=== PATIENT | male | born 1950 | race Caucasian/White ===

== ENCOUNTER → 2017-12-18 | Outpatient (CLI) | payer MEDICARE, OTHER ==
[~2017-12-18] MED LIST: KETO10 PO; TERA10CA3 PO; TERA5CAP3 PO; TRAM50TA PO
[2017-12-18 10:42] LABS: AUTOMATED NEUTROPHIL # 4.9 TH/MM3 (1.8-7.7); BASOPHIL % 0.4 % (0.0-2.0); EOSINOPHIL # 0.2 TH/MM3 (0-0.4); EOSINOPHIL % 3.4 % (0.0-4.0); HEMATOCRIT 40.8 % (39.0-51.0); HEMOGLOBIN 13.9 GM/DL (13.0-17.0); LYMPH % 16.9 % (9.0-44.0); LYMPHOCYTE # 1.1 TH/MM3 (1.0-4.8); MEAN CELL VOLUME 94.7 FL (80.0-100.0); MEAN CORPUSCULAR HEMOGLOBIN 32.2 PG (27.0-34.0); MEAN PLATELET VOLUME 9.5 FL (7.0-11.0); MONO % 6.2 % (0.0-8.0); MONOCYTE # 0.4 TH/MM3 (0-0.9); NEUT % 73.1 % (16.0-70.0); PLATELET COUNT 196 TH/MM3 (150-450); RED BLOOD COUNT 4.31 MIL/MM3 (4.50-5.90); RED CELL DISTRIBUTION WIDTH 12.9 % (11.6-17.2); WHITE BLOOD COUNT 6.7 TH/MM3 (4.0-11.0)
[2017-12-18 10:46] LABS: BILIRUBIN, URINE NEG (NEG); BLOOD, URINE NEG (NEG); GLUCOSE,URINE NEG (NEG); KETONE, URINE 10 mg/dL (NEG); MUCUS URINE FEW /lpf (OCC); NITRITE,URINE NEG (NEG); PH, URINE 6.5 (5.0-8.5); URINE COLOR LIGHT-YELLOW (YELLW/STRAW); URINE LEUKOCYTE ESTERASE NEG (NEG)
[2017-12-18 10:47] LABS: INTERNATIONAL NORMALIZED RATIO 1.1 RATIO; PROTHROMBIN TIME - PATIENT 11.6 SEC (9.8-11.6)
[2017-12-18 11:05] LABS: ALBUMIN 4.1 GM/DL (3.4-5.0); AST (GOT) 20 U/L (15-37); BICARBONATE 28.8 MEQ/L (21.0-32.0); BLOOD UREA NITROGEN 4 MG/DL (7-18); CALCIUM 9.1 MG/DL (8.5-10.1); CHLORIDE 104 MEQ/L (98-107); CREATININE 0.76 MG/DL (0.60-1.30); GLOMERULAR FILTRATION RATE 102 ML/MIN (>89); GLUCOSE,FASTING 123 MG/DL (74-99); SODIUM (NA) 140 MEQ/L (136-145)
[2017-12-18 11:08] LABS: ALKALINE PHOSPHATASE 70 U/L (45-117); ALT (GPT) 19 U/L (12-78); TOTAL BILIRUBIN ADULT 0.7 MG/DL (0.2-1.0); TOTAL PROTEIN 7.3 GM/DL (6.4-8.2)
--- NOTE | 2017-12-18 16:33 | EKG ---
Date Performed: 12/18/2017 Time Performed: 10:26:55 PTAGE: 67 years EKG: Sinus rhythm NORMAL ECG NO PREVIOUS TRACING DOCTOR: Coleman Oates Interpretating Date/Time 12/18/2017 16:32:15
== END ==
LOC: CPRE 09:57
PROVIDERS: ATTEND Dentist Oral and Maxillofacial Surgery
DX: Z01.812 Encounter for preprocedural laboratory examination (principal); Z01.810 Encounter for preprocedural cardiovascular examination; C02.1 Malignant neoplasm of border of tongue
CPT/HCPCS: 36415; 80053; 81001; 85025; 85610; 85730; 93005

== ENCOUNTER 2017-12-21 12:35 | Day surgery (SDC) | payer MEDICARE, OTHER ==
--- NOTE | 2017-12-18 08:10 | MH ---
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 The lesion has been present for approximately a year. He is admitted at this time for surgical excision of the right side of his tongue. PAST MEDICAL HISTORY: He has a history of benign prostatic hypertrophy. He has had some episodes of PAT, although his heart rate today is in a normal range. PAST SURGICAL HISTORY: Reveals he has not had surgery in the past. CURRENT MEDICATIONS: 1. Terazosin 10 mg b.i.d. 2. Tramadol 50 mg p.r.n. pain. 3. Tobramycin eyedrops. ALLERGIES: HE IS ALLERGIC TO PENICILLIN. FAMILY HISTORY: His mother and father both at age 85. SOCIAL HISTORY: He lives by himself at home. He smokes 1/2 pack of cigarettes per day. Alcohol, he states he has not drank in the last 5 years and reports he has trouble sleeping, poor eating habits. He is retired. REVIEW OF SYSTEMS: HEAD: He has no history of headaches, dizziness, lightheaded, injury or seizure disorders. EYES: No history of double vision, tearing or blind spots. NOSE: No history of bleeding, obstruction or discharge. MOUTH: Problems as noted above, squamous cell carcinoma of the right side of the tongue approximately 3 x 3 cm. THROAT: Clear. He has no difficulty swallowing, no hoarseness. He has no history of thyroid disease. LYMPH NODES: No local or general glandular enlargement. RESPIRATORY: No history of tuberculosis, shortness of breath, cough, asthma or sleep apnea. He does report he has COPD. CARDIOVASCULAR: No history of hypertension or hypotension, heart murmurs, phlebitis, previous heart surgery, rheumatic fever or chest pain. He does report some shortness of breath on exertion in the last few months. GASTROINTESTINAL: No history of gallbladder disease or peptic ulcer disease. He states that his bowels are irregular due to his diet of eating mostly fruit, juice and mashed potatoes. GENITOURINARY: No history of kidney disease or venereal disease. MUSCULOSKELETAL: No pain, limitation of movement, or muscular weakness. ENDOCRINE: No history of diabetes hormone therapy growth abnormality. HEMATOLOGICAL: No history of anemia or bleeding tendencies. Reports that he did have a transfusion in 1977. NEUROLOGICAL: No sensory or motor disturbances. PHYSICAL EXAMINATION: VITAL SIGNS: Reveals that he has a heart rate of 62 and regular. Blood pressure is 143/74, O2 saturation on room air is 98%. He is 5 feet 10 inches and weighs 170 pounds. HEENT: Head is normocephalic. There are no masses noted. Eyes, EOMs intact. PERRLA. Nose, slight deviation to the left; however, he can breathe well through his nose. Mouth, he has a squamous cell carcinoma on the right mid portion of his tongue, 3 x 3 cm in diameter. NECK: Supple. There is no thyroid enlargement. No difficulty with swallowing. CHEST: Clear to auscultation. HEART: Regular sinus rhythm. He does have a grade 2/6 systolic ejection murmur heard best in the mitral area. EXTREMITIES: Peripheral pulses are full and equal throughout. The murmur is transmitted through to his carotids bilaterally. ABDOMEN: Soft. There are no masses or organomegaly present. Bowel sounds are present. CENTRAL NERVOUS SYSTEM: Cranial nerves 2-12 intact. Deep tendon reflexes are symmetric and physiologic. The patient has been informed of the need for surgical excision of the squamous cell carcinoma. He has been informed of the possibility of having numbness to his tongue and he accepts the treatment plan. ARTHUR Casey/ , 10:08 AM , 10:43 AM
[~2017-12-21 12:35] MED LIST changes: +BALANCED SALT SOLN OPHT IRRIG 15 ML BTL ONE; +CHLORHEXIDINE GLUCONATE 0.12% 15 ML CUP ONE; -KETO10 PO; +LIDOCAINE 1%/EPINEPHrine 1:100,000 SOLN 30 ML VIAL ONE; +LIDOCAINE 2%/EPINEPHrine PF 1:200,000 20ML SDV ONE; -TERA5CAP3 PO
[2017-12-21] MEDS ORDERED: PROPOFOL 200 MG/20 ML AMP IV ONE (12:36)
[2017-12-21] MEDS ORDERED: NEOSTIGMINE 5 MG/5 ML SYRINGE IV PUSH ONE (12:36)
[2017-12-21] MEDS ORDERED: ONDANSETRON HCL 4 MG/2 ML VIAL IV ONE (12:36)
[2017-12-21] MEDS ORDERED: ePHEDrine/NS 25 MG/5 ML SYRINGE IV ONE (12:36)
[2017-12-21] MEDS ORDERED: GLYCOPYRROLATE 1 MG/5 ML SYRINGE IV PUSH ONE (12:36)
[2017-12-21] MEDS ORDERED: DEXAMETHASONE SOD PHOS 4 MG/ML VIAL IV ONE (12:36)
[2017-12-21] MEDS ORDERED: LIDOCAINE HCL 1% PF 5 ML SYRINGE OTHER ONE (12:36)
[2017-12-21] MEDS ORDERED: SUCCINYLCHOLINE CHLORIDE 100 MG/5 ML SYRINGE IV PUSH ONE (12:36)
[2017-12-21] MEDS ORDERED: PHENYLEPH/NS 1000 MCG/10 ML SYR IV ONE (12:36)
[2017-12-21] MEDS ORDERED: ROCURONIUM INJ 50 MG/5 ML SYRINGE IV PUSH ONE (12:36)
[2017-12-21] MEDS ORDERED: LACTATED RINGER'S 1000 ML INJ 1,000 ML IV ONE (12:36)
[2017-12-21] MEDS ORDERED: METOPROLOL TARTRATE 25 MG TAB PO PRN (13:00)
[2017-12-21] MEDS ORDERED: POVIDONE IODINE 5% (ANTISEPSIS KIT) 4 APPLICATIONS EACH NARE PRN (13:00)
[2017-12-21] MEDS ORDERED: CHLORHEXIDINE GLUCONATE 2 % 1 PACK (2 CLOTHS) TOPICAL PRN (13:00)
[2017-12-21] MEDS ORDERED: SODIUM CHLORID 0.9% 500 ML IV PRN (13:00)
[2017-12-21] MEDS ORDERED: LACTATED RINGER'S 1000 ML IV PRN (13:00)
[2017-12-21] MEDS ORDERED: ACETAMINOPHEN 1000 MG/100 ML 100 ML IV ONE (13:46)
[2017-12-21] MEDS ORDERED: OXYMETAZOLINE HCL 0.05% 15 ML NASAL SPRAY ONE (13:56)
[2017-12-21] MEDS ORDERED: CLINDAMYCIN 600 MG/NS 100 ML IV ONE ×2 (14:00)
[2017-12-21] MEDS ORDERED: CLINDAMYCIN 600 MG/NS PREMIX 50 ML IV ONE ×2 (14:00)
[2017-12-21] MEDS ORDERED: MIDAZOLAM HCL 2 MG/2 ML VIAL ONE (16:24)
[2017-12-21] MEDS ORDERED: *morphine SULFATE 4 MG/ML PERIprocedure ONLY ONE (16:26)
[2017-12-21] MEDS ORDERED: *MEPERIDINE 25 MG INJ VIAL PERIprocedural Use ONLY ONE (16:40)
--- NOTE | 2017-12-21 16:47 | MP ---
cc: Marcin Enriquez DDS DATE OF OPERATION: 12/21/2017 DATE OF : 1950 PREOPERATIVE DIAGNOSES: 1. T2 N0 M0 squamous cell carcinoma, right anterior 2/3 of the tongue. 2. Poor dentition. POSTOPERATIVE DIAGNOSES: 1. T2 N0 M0 squamous cell carcinoma, right anterior 2/3 of the tongue. 2. Poor dentition. PROCEDURE PERFORMED: 1. Partial glossectomy of right tongue. 2. Permanent section for frozen sections all came back negative. 3. Extraction of 4 teeth, #16, 18, 30 and 31; those were done by Dr. Álvarez; see dictation for that. FLUIDS: 1000 mL of crystalloids. SPECIMEN: One permanent, four frozen. All frozen came back negative for squamous cell. ESTIMATED BLOOD LOSS: 10 mL. COMPLICATIONS: None. JUSTIFICATION: Mr. Hope is a pleasant 67-year-old man with a continued complaint of a lesion on his right tongue, had been there for almost 7-8 months. He has had a lot of pain with it. Biopsy showed poorly differentiated squamous cell carcinoma. Plan is to go to the OR procedure today on 12/21/2017. PROCEDURE: He presents to the holding area, identified by his name and his chart number, is brought back to OR #7, intubated nasally by Anesthesia, then prepped and draped in sterile fashion. Local anesthesia was given with 2% Xylocaine, 1:100,000 epinephrine, a total of 8 mL in the right tongue. The outline of the lesion was done, was evident clinically as well as a good 8 mm to 1 cm margin, removal of the large portion of the tongue was taken out deep into the muscle. Deep anterior, superior and posterior frozen sections were all sent off undermined. The tongue was irrigated copiously, hemostasis maintained. While waiting for the frozen sections, closure was done with a 3-0 Vicryl in an interlocking horizontal mattress fashion. Dr. Álvarez came in and performed his part of removal of 4 teeth. See his operative report. Pathology called back and all frozen sections were negative for squamous cell. The patient tolerated procedure well. He was extubated and taken to Recovery with vital signs stable. ARTHUR Storey/JUSTO , 04:05 PM , 04:46 PM
[2017-12-21] MEDS ORDERED: *HYDROmorphone PF 0.5 MG/0.5 ML PERIprocedure ONLY ONE ×2 (17:13→17:48)
[2017-12-21] MEDS ORDERED: DO NOT ADM ANY ANTICOAGULANT DRUGS PRN (17:15)
[2017-12-21] MEDS: DEXT 5%-NACL 0.45% 1000 ML INJ 1,000 ML IV SCH (17:15)
[2017-12-21] MEDS ORDERED: *ENALAPRILAT 1.25 MG/ML VIAL PERIprocedural Use ONLY ONE (17:46)
[2017-12-21] MEDS: MORPHINE SULFATE 4 MG/ML INJ IV PRN ×2 (20:19→23:34)
[2017-12-21 21:20] VITALS: BP 110/62; PULSE 75; RESP 16; TEMP 97.9; O2SAT 94
[2017-12-21] MEDS: CLINDAMYCIN 300 MG/NS PREMIX 50 ML IV SCH (23:51)
[2017-12-22] VITALS: BP 99/63; PULSE 66; RESP 17; TEMP 98; O2SAT 97
[2017-12-22] MEDS: MORPHINE SULFATE 4 MG/ML INJ IV PRN ×3 (02:41→09:07)
[2017-12-22] MEDS: DEXT 5%-NACL 0.45% 1000 ML INJ 1,000 ML IV SCH (02:42)
[2017-12-22 04:00] VITALS: BP 99/65; PULSE 69; RESP 16; TEMP 98.1; O2SAT 98
[2017-12-22] MEDS: CLINDAMYCIN 300 MG/NS PREMIX 50 ML IV SCH (05:53)
[2017-12-22 08:00] VITALS: BP_SYST 110; BP_SYST 165; BP_DIAS 62; BP_DIAS 95; PULSE 59; PULSE 60; RESP 17; TEMP 97.5; TEMP 97.6; O2SAT 95
--- NOTE | 2017-12-22 10:54 | MP ---
cc: Ritchie Álvarez DDS DATE OF OPERATION: 12/21/2017 SURGEON: Ritchie Álvarez DDS PREOPERATIVE DIAGNOSIS: Poorly differentiated squamous cell carcinoma of the right tongue. PROCEDURE PERFORMED: 1. Excision of squamous cell carcinoma of the right tongue. This portion of the surgery will be dictated by Dr. Enriquez. 2. Removal of teeth #16, 18, 31 32, in preparation for definitive radiation therapy for his squamous cell carcinoma and to prevent osteoradionecrosis, performed by Dr. Álvarez. OPERATIVE PROCEDURE: After the tongue surgery was completed, attention was directed to the area of #31 and 32. A full thickness mucoperiosteal incision was made around #31 and 32. The flap was reflected. Bone around the teeth removed with the use of a rotary drill. The teeth were then elevated and removed with a forceps. The incision line was closed with interrupted 4-0 plain gut sutures. Attention was directed to the area of #18. A full thickness mucoperiosteal incision was made around #18. The flap was reflected. Bone around the tooth was removed and it was removed with forceps. The incision line was closed with interrupted 4-0 plain gut sutures. Attention was directed to the area of #16. The tooth was elevated and then removed with forceps. Once this was completed, the throat pack was removed and the patient was taken to recovery in good condition. ARTHUR Casey/JUSTO , 10:31 AM , 10:52 AM
[2017-12-22 12:00] VITALS: BP 133/64; PULSE 89; RESP 18; TEMP 98; O2SAT 96
[2017-12-22] MEDS: oxyCODONE/ACETAMINOPHEN 7.5 MG/325 MG TAB PO PRN ×2 (12:16→15:47)
[2017-12-22 16:00] VITALS: BP 126/66; PULSE 57; RESP 18; TEMP 97.8; O2SAT 96
[2017-12-23] MEDS ORDERED: PNEUMOCOCCAL POLYVALENT INJ 25 MCG/0.5 ML SYR IM ONE (10:00)
== END 2017-12-22 18:32 | disposition home or self-care (01) ==
LOC: HSDC 12:35 → N04A 18:42 → HSDC 12-22 18:32
PROVIDERS: ATTEND Dentist Oral and Maxillofacial Surgery
DX: C02.3 Malignant neoplasm of anterior two-thirds of tongue, part unspecified (principal); K00.7 Teething syndrome; N40.0 Benign prostatic hyperplasia without lower urinary tract symptoms; I47.1 Supraventricular tachycardia; F17.210 Nicotine dependence, cigarettes, uncomplicated; Z88.0 Allergy status to penicillin
CPT/HCPCS: 00170; 41120; 41899; 88305; 88309; 88331; J0131; J1170; J2175; J2250; J2270; J3010; J7120; J0330; J1100; J2370; J2405; J2710

== ENCOUNTER 2018-02-08 11:16 | Inpatient (IN) | payer MEDICARE, OTHER ==
[~2018-02-08] VITALS: Ht 177.8 cm; Wt 76.5 kg
[~2018-02-08 11:16] MED LIST changes: -BALANCED SALT SOLN OPHT IRRIG 15 ML BTL ONE; -CHLORHEXIDINE GLUCONATE 0.12% 15 ML CUP ONE; -LIDOCAINE 1%/EPINEPHrine 1:100,000 SOLN 30 ML VIAL ONE; -LIDOCAINE 2%/EPINEPHrine PF 1:200,000 20ML SDV ONE
[2018-02-08] MEDS ORDERED: IOHEXOL 350 MG/ML 10 ML VIAL (for RAD DIAG) IVCONTRAST ONE (11:17)
[2018-02-08 11:20] VITALS: BP 138/93; PULSE 137; RESP 18; TEMP 99.6; O2SAT 98
[2018-02-08 11:38] VITALS: BP 158/77; PULSE 125; RESP 20; O2SAT 98
[2018-02-08] MEDS ORDERED: SODIUM CHLOR 0.9% 1000 ML INJ 1,000 ML IV ONE (11:45)
[2018-02-08] MEDS ORDERED: ASPIRIN 325 MG TAB PO ONE (11:45)
[2018-02-08] MEDS ORDERED: METOCLOPRAMIDE HCL 10 MG/2 ML VIAL IV PUSH ONE (11:45)
[2018-02-08] MEDS ORDERED: MORPHINE SULFATE 4 MG/ML INJ IV PUSH ONE ×2 (11:45→14:00)
--- NOTE | 2018-02-08 11:51 | PD ---
HPI Chief Complaint: Cardiac Complaint Time Seen by Provider: 11:25 Travel History International Travel<30 days: No Contact w/Intl Traveler<30days: No Traveled to known affect area: No History of Present Illness HPI 67-year-old male that presents to the ED for evaluation of possible syncope and arrhythmia. Apparently patient was on his bathroom when she had a possible syncopal episode where he felt palpitations as well as shortness of breath. He had some discomfort in his chest like a pressure. Per patient he has had the symptoms before and per patient has had tachycardia in the past but he is not really able to tell me what he has been diagnosed with. He denies any history of heart disease. Per patient he does have a significant history of chronic arthritis for which she takes tramadol as well as colon cancer for which she is currently in the process of being treated by the [facility] as well as Dr. Madison for radiology oncology. Patient has not had any chemoradiation as of yet. Per patient she is been dealing with a lot of pain secondary to the cancer and his tramadol seems to not be working for him. Per patient has been noting for the past week he has been having episodes where he feels like his in a pass out and he does not believe is just because he is standing. Per patient he will be standing and walking for some time and then he will have some chest pressure on his chest and feel like his in a pass out. He never has done so however. He denies taking more of his tramadol than prescribed. He denies any pain at this time. He does state that he feels somewhat depressed and suicidal because of his situation and his current pain. Per patient when he has his pain is more like a pressure on his chest. He denies taking blood thinners. He denies any history of ACS. Allergy to penicillin. He states that he does have 7 out of 10 pain on his right side of his mouth. PFSH Past Medical History Arthritis: Yes (RIGHT KNEE) Anxiety: Yes (patient states "naturally so" ) Depression: Yes Heart Rhythm Problems: Yes (P.A.T.) Cancer: Yes (tongue cancer) Diabetes: No Diminished Hearing: No (RINGING IN EARS AT TIMES) Endocrine: No Genitourinary: Yes (ENLARGED PROSTATE) Kidney Stones: Yes (PASSED A KIDNEY STONE YESTERDAY) Medical other: Yes (Thrush on tongue) Musculoskeletal: Yes (arthritis) Psychiatric: Yes Immunizations Current: Yes Tetanus Vaccination: > 5 Years Influenza Vaccination: Yes Past Surgical History Abdominal Surgery: No AICD: No Body Medical Devices: right leg pin Cardiac Surgery: No Ear Surgery: No Endocrine Surgery: No Eye Surgery: No Genitourinary Surgery: No Gynecologic Surgery: No Joint Replacement: No Oral Surgery: Yes (Teeth extracted) Thoracic Surgery: No Other Surgery: Yes (TONGUE SURGERY) Social History Alcohol Use: Yes (1/2 PPD) Tobacco Use: Yes Substance Use: No Allergies-Medications (Allergen,Severity, Reaction): Coded Allergies: penicillin G (Verified Allergy, Unknown, 02/08/18) Reported Meds & Prescriptions Reported Meds & Active Scripts Active Reported Terazosin (Terazosin HCl) 10 Mg Cap 10 Mg PO BID Tramadol (Tramadol HCl) 50 Mg Tab 50 Mg PO Q6H PRN Review of Systems Except as stated in HPI: all other systems reviewed are Neg Physical Exam Narrative GENERAL: SKIN: Warm and dry. HEAD: Atraumatic. Normocephalic. EYES: Pupils equal and round. No scleral icterus. No injection or drainage. ENT: No nasal bleeding or discharge. Mucous membranes pink and moist. Tongue is midline. No blood deviation. She does have some deformities and what appears to be inflammation and likely cancer changes to his mouth especially on the right side compared to the left. NECK: Trachea midline. No JVD. CARDIOVASCULAR: Regular tachycardic rate and rhythm. No murmurs, S3, S4. RESPIRATORY: No accessory muscle use. Clear to auscultation. Breath sounds equal bilaterally. GASTROINTESTINAL: Abdomen soft, non-tender, nondistended. Hepatic and splenic margins not palpable. MUSCULOSKELETAL: Extremities without clubbing, cyanosis, or edema. No obvious deformities. Full range of motion of the upper and lower extremities bilaterally. 2+ pulses bilaterally. NEUROLOGICAL: Awake and alert. No obvious cranial nerve deficits. Motor grossly within normal limits. Five out of 5 muscle strength in the arms and legs. Normal speech. PSYCHIATRIC: Appropriate mood and affect; insight and judgment normal. Data Data Last Documented VS Vital Signs Date Time Temp Pulse Resp B/P (MAP) Pulse Ox O2 Delivery O2 Flow Rate FiO2 02/08/18 13:22 78 18 141/60 (87) 100 Room Air 02/08/18 11:20 99.6 Orders Orders Electrocardiogram (02/08/18 11:26) Complete Blood Count With Diff (02/08/18 11:26) Comprehensive Metabolic Panel (02/08/18 11:26) Ckmb (Isoenzyme) Profile (02/08/18 11:26) Troponin I (02/08/18 11:26) Prothrombin Time / Inr (Pt) (02/08/18 11:26) Act Partial Throm Time (Ptt) (02/08/18 11:26) Magnesium (Mg) (02/08/18 11:26) Thyroid Stimulating Hormone (02/08/18 11:26) Chest, Single Ap (02/08/18 11:26) Ct Brain W/O Iv Contrast(Rout) (02/08/18 11:26) Iv Access Insert/Monitor (02/08/18 11:26) Ecg Monitoring (02/08/18 11:26) Oximetry (02/08/18 11:26) D-Dimer (02/08/18 11:41) Aspirin (Aspirin) (02/08/18 11:45) Morphine Inj (Morphine Inj) (02/08/18 11:45) Metoclopramide Inj (Reglan Inj) (02/08/18 11:45) Sodium Chlor 0.9% 1000 Ml Inj (Ns 1000 M (02/08/18 11:45) CKMB (02/08/18 11:30) CKMB% (02/08/18 11:30) Ct Pulmonary Angiogram (02/08/18 ) Morphine Inj (Morphine Inj) (02/08/18 14:00) Iohexol 350 Inj (Omnipaque 350 Inj) (02/08/18 11:17) Admit Order (Ed Use Only) (02/08/18 15:46) Labs Laboratory Tests Test 02/08/18 11:30 White Blood Count 8.0 TH/MM3 Red Blood Count 4.41 MIL/MM3 Hemoglobin 13.9 GM/DL Hematocrit 41.8 % Mean Corpuscular Volume 94.9 FL Mean Corpuscular Hemoglobin 31.5 PG Mean Corpuscular Hemoglobin Concent 33.2 % Red Cell Distribution Width 13.7 % Platelet Count 192 TH/MM3 Mean Platelet Volume 10.5 FL Neutrophils (%) (Auto) 75.2 % Lymphocytes (%) (Auto) 14.9 % Monocytes (%) (Auto) 7.2 % Eosinophils (%) (Auto) 1.9 % Basophils (%) (Auto) 0.8 % Neutrophils # (Auto) 6.0 TH/MM3 Lymphocytes # (Auto) 1.2 TH/MM3 Monocytes # (Auto) 0.6 TH/MM3 Eosinophils # (Auto) 0.2 TH/MM3 Basophils # (Auto) 0.1 TH/MM3 CBC Comment DIFF FINAL Differential Comment Prothrombin Time 11.4 SEC Prothromb Time International Ratio 1.1 RATIO Activated Partial Thromboplast Time 25.2 SEC D-Dimer Quantitative (PE/DVT) 0.74 MG/L FEU Blood Urea Nitrogen 6 MG/DL Creatinine 0.82 MG/DL Random Glucose 98 MG/DL Total Protein 7.7 GM/DL Albumin 4.1 GM/DL Calcium Level 9.0 MG/DL Magnesium Level 1.9 MG/DL Alkaline Phosphatase 77 U/L Aspartate Amino Transf (AST/SGOT) 22 U/L Alanine Aminotransferase (ALT/SGPT) 15 U/L Total Bilirubin 0.5 MG/DL Sodium Level 142 MEQ/L Potassium Level 4.2 MEQ/L Chloride Level 107 MEQ/L Carbon Dioxide Level 26.2 MEQ/L Anion Gap 9 MEQ/L Estimat Glomerular Filtration Rate 93 ML/MIN Total Creatine Kinase 166 U/L Creatine Kinase MB 2.0 NG/ML Troponin I LESS THAN 0.02 NG/ML Thyroid Stimulating Hormone 3rd Gen 0.833 uIU/ML MDM Medical Decision Making Medical Screen Exam Complete: Yes Emergency Medical Condition: Yes Medical Record Reviewed: Yes Interpretation(s) CBC & BMP Diagram 02/08/18 11:30 Total Protein 7.7, Albumin 4.1, Calcium Level 9.0, Magnesium Level 1.9, Alkaline Phosphatase 77, Aspartate Amino Transf (AST/SGOT) 22, Alanine Aminotransferase (ALT/SGPT) 15, Total Bilirubin 0.[address] 02/08/18 1126 Signed Impressions: CONCLUSION: 1. Negative noncontrast head CT. Chest X-Ray 02/08/18 112 Signed Impressions: CONCLUSION: No acute cardiopulmonary process. CT Angiography 02/08/18 0000 Signed Impressions: CONCLUSION: 1. No pulmonary embolus identified. 2. 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 3. Mild COPD changes in the pulmonary parenchyma d-dimmer positive troponin and CKMB negative Differential Diagnosis Acute on chronic pain versus cancer pain versus dehydration versus PE versus syncope versus ACS versus N STEMI Narrative Course 67-year-old male the presents to the ED for evaluation of possible syncope and tachycardia as well as cancer pain. Patient was properly examined and was found to have signs and symptoms of unclear etiology. Patient was evaluated by ambulance and was found to be tachycardic but no sign of A. fib and he was not given any Cardizem. Per my examination she has been as high as 128. His been complaining of some pain on his mild from the cancer. He also seems to not be eating or drinking as much because of the discomfort. He also has been complaining of some chest pressure and presyncope-like symptoms. This time I recommend labs and imaging. Patient was given IV pain medications and antiemetics. Patient was given fluids as well. Aspirin was given to cover for ACS. Labs and imaging showed positive d-dimer. CTA was ordered. CTA did not show any sign of PE but did show what appears to be severe stenosis of the left subclavian artery. This time her condition is admission for further evaluation of the syncopal episodes. Could be related to the stenosis versus pain from the tongue versus arrhytmia. My attending Dr manning evaluated the patient and agrees with admission. Case discussed with ALEXANDER LEONG for Dr Tyson who agrees with admission. Diagnosis Primary Impression: Syncope, near Additional Impressions: Subclavian artery stenosis, left Arrhythmia Qualified Codes: I49.9 - Cardiac arrhythmia, unspecified Tongue cancer Admitting Information Admitting Physician Requests: Kuldip Qiu Feb 08, 2018 11:51
--- NOTE | 2018-02-08 11:57 | RADRPT ---
EXAM DATE: 02/08/2018 11:48 AM EDT AGE/SEX: 67 years / Male INDICATIONS: Syncope CLINICAL DATA: This is the patient's initial encounter. Patient reports that signs and symptoms have been present for 1 day and indicates a pain score of 0/10. MEDICAL/SURGICAL HISTORY: None. None. COMPARISON: No prior exams available for comparison. FINDINGS: A single AP view of the chest demonstrates the lungs to be symmetrically aerated without evidence of mass, infiltrate or effusion. The cardiomediastinal contours are unremarkable. Osseous structures a re intact. CONCLUSION: No acute cardiopulmonary process. Electronically signed by: Ritchie Angel MD 02/08/2018 11:56 AM EDT
[2018-02-08 12:16] LABS: BASOPHIL # 0.1 TH/MM3 (0-0.2); BASOPHIL % 0.8 % (0.0-2.0); EOSINOPHIL # 0.2 TH/MM3 (0-0.4); EOSINOPHIL % 1.9 % (0.0-4.0); HEMATOCRIT 41.8 % (39.0-51.0); HEMOGLOBIN 13.9 GM/DL (13.0-17.0); LYMPH % 14.9 % (9.0-44.0); LYMPHOCYTE # 1.2 TH/MM3 (1.0-4.8); MEAN CELL VOLUME 94.9 FL (80.0-100.0); MEAN CORPUSCULAR HEMOGLOBIN 31.5 PG (27.0-34.0); MEAN CORPUSCULAR HGB CONC 33.2 % (32.0-36.0); MEAN PLATELET VOLUME 10.5 FL (7.0-11.0); MONO % 7.2 % (0.0-8.0); MONOCYTE # 0.6 TH/MM3 (0-0.9); NEUT % 75.2 % (16.0-70.0); PLATELET COUNT 192 TH/MM3 (150-450); RED BLOOD COUNT 4.41 MIL/MM3 (4.50-5.90); RED CELL DISTRIBUTION WIDTH 13.7 % (11.6-17.2)
[2018-02-08 12:28] LABS: INTERNATIONAL NORMALIZED RATIO 1.1 RATIO; PROTHROMBIN TIME - PATIENT 11.4 SEC (9.8-11.6)
[2018-02-08 12:49] LABS: ALBUMIN 4.1 GM/DL (3.4-5.0); ALKALINE PHOSPHATASE 77 U/L (45-117); ALT (GPT) 15 U/L (12-78); AST (GOT) 22 U/L (15-37); BICARBONATE 26.2 MEQ/L (21.0-32.0); BLOOD UREA NITROGEN 6 MG/DL (7-18); CHLORIDE 107 MEQ/L (98-107); CREATININE 0.82 MG/DL (0.60-1.30); GLOMERULAR FILTRATION RATE 93 ML/MIN (>89); GLUCOSE,RANDOM 98 MG/DL (74-106); MAGNESIUM 1.9 MG/DL (1.5-2.5); SODIUM (NA) 142 MEQ/L (136-145); TOTAL BILIRUBIN ADULT 0.5 MG/DL (0.2-1.0); TOTAL PROTEIN 7.7 GM/DL (6.4-8.2); TROPONIN I LESS THAN 0.02 NG/ML (0.02-0.05)
--- NOTE | 2018-02-08 12:49 | RADRPT ---
EXAM DATE: 02/08/2018 12:42 PM EDT AGE/SEX: 67 years / Male INDICATIONS: Syncope CLINICAL DATA: This is the patient's initial encounter. Patient reports that signs and symptoms have been present for 1 day and indicates a pain score of 5/10. MEDICAL/SURGICAL HISTORY: Carcinoma, tongue. tachycardia and heart palipitations . RADIATION DOSE: 36.04 CTDI (mGy) COMPARISON: No prior exams available for comparison. TECHNIQUE: CT of the head without contrast. Using automated exposure control and adjustment of the mA and/or kV according to patient size, radiation dose was kept as low as reasonably achievable to ob tain optimal diagnostic quality images. DICOM format image data is available electronically for revi ew and comparison. FINDINGS: Cerebrum: The ventricles are normal for age. No evidence of midline shift, mass lesion, hemorrhage or acute infarction. No extraaxial fluid collections are seen. Posterior Fossa: The cerebellum and brainstem are intact. The 4th ventricle is midline. The cerebe llopontine angle is unremarkable. Extracranial: The visualized portion of the orbits is intact. Skull: The calvaria is intact. No evidence of skull fracture. CONCLUSION: 1. Negative noncontrast head CT. Electronically signed by: Mitchell Craig MD 02/08/2018 12:48 PM EDT
--- NOTE | 2018-02-08 13:08 | PD ---
Physical Exam Date Seen by Provider: Feb 08, 2018 Narrative This patient presents to us via [facility] for palpitations. He has a new diagnosis of tongue cancer. He is having difficulty with eating and drinking. He is also reporting significant pain associated with the cancer. The monitor shows a sinus tachycardia. Data Data Last Documented VS Vital Signs Date Time Temp Pulse Resp B/P (MAP) Pulse Ox O2 Delivery O2 Flow Rate FiO2 02/08/18 11:38 125 20 158/77 (104) 98 Room Air 02/08/18 11:20 99.6 Orders Orders Electrocardiogram (02/08/18 11:26) Complete Blood Count With Diff (02/08/18 11:26) Comprehensive Metabolic Panel (02/08/18 11:) Ckmb (Isoenzyme) Profile (02/08/18:) Troponin I (02/08/18:) Prothrombin Time / Inr (Pt) (02/08/18 11:) Act Partial Throm Time (Ptt) (02/08/18 11:) Magnesium (Mg) (02/08/18 11:26) Thyroid Stimulating Hormone (02/08/18 11:26) Chest, Single Ap (02/08/18 11:26) Ct Brain W/O Iv Contrast(Rout) (02/08/18 11:26) Iv Access Insert/Monitor (02/08/18 11:26) Ecg Monitoring (02/08/18 11:26) Oximetry (02/08/18 11:26) D-Dimer (02/08/18 11:41) Aspirin (Aspirin) (02/08/18 11:45) Morphine Inj (Morphine Inj) (02/08/18 11:45) Metoclopramide Inj (Reglan Inj) (02/08/18 11:45) Sodium Chlor 0.9% 1000 Ml Inj (Ns 1000 M (02/08/18 11:45) CKMB (02/08/18 11:30) CKMB% (02/08/18 11:30) Ct Pulmonary Angiogram (02/08/18 ) Labs Laboratory Tests Test 02/08/18 11:30 White Blood Count 8.0 TH/MM3 Red Blood Count 4.41 MIL/MM3 Hemoglobin 13.9 GM/DL Hematocrit 41.8 % Mean Corpuscular Volume 94.9 FL Mean Corpuscular Hemoglobin 31.5 PG Mean Corpuscular Hemoglobin Concent 33.2 % Red Cell Distribution Width 13.7 % Platelet Count 192 TH/MM3 Mean Platelet Volume 10.5 FL Neutrophils (%) (Auto) 75.2 % Lymphocytes (%) (Auto) 14.9 % Monocytes (%) (Auto) 7.2 % Eosinophils (%) (Auto) 1.9 % Basophils (%) (Auto) 0.8 % Neutrophils # (Auto) 6.0 TH/MM3 Lymphocytes # (Auto) 1.2 TH/MM3 Monocytes # (Auto) 0.6 TH/MM3 Eosinophils # (Auto) 0.2 TH/MM3 Basophils # (Auto) 0.1 TH/MM3 CBC Comment DIFF FINAL Differential Comment Prothrombin Time 11.4 SEC Prothromb Time International Ratio 1.1 RATIO Activated Partial Thromboplast Time 25.2 SEC D-Dimer Quantitative (PE/DVT) 0.74 MG/L FEU Blood Urea Nitrogen 6 MG/DL Creatinine 0.82 MG/DL Random Glucose 98 MG/DL Total Protein 7.7 GM/DL Albumin 4.1 GM/DL Calcium Level 9.0 MG/DL Magnesium Level 1.9 MG/DL Alkaline Phosphatase 77 U/L Aspartate Amino Transf (AST/SGOT) 22 U/L Alanine Aminotransferase (ALT/SGPT) 15 U/L Total Bilirubin 0.5 MG/DL Sodium Level 142 MEQ/L Potassium Level 4.2 MEQ/L Chloride Level 107 MEQ/L Carbon Dioxide Level 26.2 MEQ/L Anion Gap 9 MEQ/L Estimat Glomerular Filtration Rate 93 ML/MIN Total Creatine Kinase 166 U/L Creatine Kinase MB 2.0 NG/ML Troponin I LESS THAN 0.02 NG/ML Thyroid Stimulating Hormone 3rd Gen 0.833 uIU/ML MDM Supervised Visit with TONI: Yes Narrative Course I, Dr. Arnold, have reviewed the advance practice practitioner's documentation and am in agreement, met with the patient face to face, made the diagnosis, and the medical decision making was done by me. *My assessment and Findings: Patient is awake and alert. He becomes tearful during the interview. He has a sinus tachycardia at about 110. See Jennifer Solomon note for a more detailed H&P, final diagnosis and disposition Kristina Arnold MD Feb 08, 2018 13:08
[2018-02-08 13:22] VITALS: BP 141/60; PULSE 78; RESP 18; O2SAT 100
--- NOTE | 2018-02-08 15:10 | RADRPT ---
EXAM DATE: 02/08/2018 2:49 PM EDT AGE/SEX: 67 years / Male INDICATIONS: CHEST PRESSURE,SHORTNESS OF BREATH,SYBCOPE CLINICAL DATA: This is the patient's initial encounter. Patient reports that signs and symptoms have been present for 1 day and indicates a pain score of 1/10. MEDICAL/SURGICAL HISTORY: Carcinoma, oral cavity. IRREGULAR HEART BEAT None. RADIATION DOSE: 13.24 CTDI (mGy) COMPARISON: No prior exams available for comparison. TECHNIQUE: Volumetric scanning was performed using a multi-row detector CT scanner during bolus infu jamey of 74 ml Omnipaque 350 (iohexol) nonionic water-soluble contrast as a single exam dose. The hannah a was post processed with a variety of visualization algorithms including full volume maximum intensi ty projection and sliding thin slab reformation. Using automated exposure control and adjustment of the mA and/or kV according to patient size, radiation dose was kept as low as reasonably achievable t o obtain optimal diagnostic quality images. DICOM format image data is available electronically for review and comparison. FINDINGS: The examination is of excellent diagnostic quality. No pulmonary embolus is identified. The heart is normal in size. There is no hilar or mediastinal adenopathy. The exam does demonstrate m ild calcification of the aortic annulus. There is no pericardial effusion. There is partial visualization of the origin of the left subclavian. The exam would suggest a high-gr ryan stenosis at the origin of the left subclavian artery. Imaging through the pulmonary parenchyma demonstrates the lungs to be clear. There are mild COPD burgess ges. No suspicious mass lesions are seen. No pleural effusion is identified. The limited portions of upper abdomen visualized are unremarkable. The visualized bony structures are grossly intact. CONCLUSION: 1. No pulmonary embolus identified. 2. 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 3. Mild COPD changes in the pulmonary parenchyma Electronically signed by: Zack Lofton MD 02/08/2018 3:08 PM EDT
[2018-02-08] MEDS ORDERED: ONDANSETRON ODT 4 MG TAB PO PRN (16:00)
[2018-02-08] MEDS ORDERED: BISACODYL 10 MG SUPP RECTAL PRN (16:00)
[2018-02-08] MEDS ORDERED: NALOXONE HCL 0.4 MG/ML AMP IV PUSH PRN (16:00)
[2018-02-08] MEDS ORDERED: LACTULOSE SYRUP 20 GM/30 ML CUP PO PRN (16:00)
[2018-02-08] MEDS ORDERED: ZOLPIDEM TARTRATE 5 MG TAB PO PRN (16:00)
[2018-02-08] MEDS ORDERED: ACETAMINOPHEN 325 MG TAB PO PRN (16:00)
[2018-02-08] MEDS ORDERED: MAGNESIUM HYDROXIDE SUSP 30 ML CUP PO PRN (16:00)
[2018-02-08] MEDS ORDERED: SODIUM CHLORIDE 0.9% FLUSH 10 ML FLUSH IV FLUSH PRN (16:00)
[2018-02-08] MEDS ORDERED: SENNOSIDES 8.6 MG TAB PO PRN (16:00)
[2018-02-08] MEDS ORDERED: traMADol HCL 50 MG TAB PO PRN (16:00)
[2018-02-08 16:45] VITALS: BP 168/77; PULSE 75; RESP 18; O2SAT 99
[2018-02-08] MEDS: ACETAMINOPHEN/HYDROcodone 325 MG/5 MG TAB PO PRN ×2 (17:01→21:10)
[2018-02-08] MEDS: SODIUM CHLOR 0.9% 1000 ML INJ 1,000 ML IV SCH ×2 (17:10→21:28)
[2018-02-08] MEDS: ENOXAPARIN SODIUM 40 MG/0.4 ML SYRINGE SQ SCH (17:10)
--- NOTE | 2018-02-08 19:29 | MB ---
cc: Jose Menendez MD DATE: 02/08/2018 HISTORY OF PRESENT ILLNESS: Mr. Hope is a very pleasant 67-year-old white male with a history of tongue cancer, who was brought to the emergency room after an episode of presyncope. He went to the bathroom after he was walking on the beach earlier today. He felt palpitations, which felt like initiation of his usual PAT. He got dizzy and lowered himself to the floor and subsequently called for help. He does not think he lost consciousness. He complains of a severe headache on the right side of the head and also pain in his mouth when he had his teeth pulled. He denies any chest discomfort or shortness of breath. He has no peripheral edema. He is trying to quit smoking. PAST MEDICAL HISTORY: Positive for tongue cancer. He is treated at [place] and also by Dr. Madison. History of supraventricular tachycardia, depression, anxiety, right knee arthritis, BPH, nephrolithiasis. Otherwise, there is no other previous cardiac history. PAST SURGICAL HISTORY: History of tongue surgery, teeth extraction, right leg surgery. MEDICATIONS: Include tramadol, terazosin. ALLERGIES: ALLERGIC TO PENICILLIN. SOCIAL HISTORY: The patient smoked a half pack a day. He does not drink alcohol. FAMILY HISTORY: Negative for heart disease. REVIEW OF SYSTEMS: Otherwise negative. PHYSICAL EXAMINATION: VITAL SIGNS: Blood pressure 160/77, pulse 75 and regular. HEENT: Negative, 2+ upstrokes, no bruits. LUNGS: Clear. HEART: Regular, with no murmur or gallop. ABDOMEN: Soft, no bruits. BREASTS: Without edema. Good distal pulses. NEUROLOGIC: Grossly nonfocal. There is some mild speech impediment secondary to oral pain and tongue surgery. ECHOCARDIOGRAM: Was reviewed and showed sinus tachycardia, no acute changes. LABORATORY DATA: Hemoglobin 13.9, potassium 4.2, creatinine 0.8. CK 156, troponin less than 0.02. TSH 0.8. DIAGNOSES: 1. Near syncope. 2. Tongue cancer, status post surgery and radiation. 3. Headache. 4. Left subclavian artery stenosis. 5. History of paroxysmal supraventricular tachycardia. 6. Smoking. PLAN: Mr. Hope will be monitored on telemetry. He has history of paroxysmal supraventricular tachycardia, but is not on any antiarrhythmic therapy at this time. His tachycardia is rather infrequent and recent episodes have been quite brief. We will obtain echocardiogram to evaluate his left ventricle function. He will need evaluation for his headache. His CT angiography showed no evidence of pulmonary embolism. It showed the evidence of high-grade stenosis of the origin of the left subclavian artery. I recommend aggressive modification of his cardiac risk factors including smoking cessation. I will follow him for cardiology during his hospitalization. MD BHARGAVI Ruano/CM , 06:31 PM , 07:27 PM SORAIDA
[2018-02-08 20:00] VITALS: BP 145/67; PULSE 62; RESP 20; TEMP 97.3; O2SAT 98
[2018-02-08] MEDS: TERAZOSIN HCL 5 MG CAP PO SCH (21:10)
[2018-02-08] MEDS: DOCUSATE SODIUM 50 MG/SENNA 8.6 MG TAB PO SCH (21:10)
[2018-02-08] MEDS: SODIUM CHLORIDE 0.9% FLUSH 10 ML FLUSH IV FLUSH SCH (21:11)
[2018-02-08 22:00] VITALS: PULSE 59
[2018-02-09] VITALS (9 sets, daily range): BP systolic 134–176; BP diastolic 67–81; PULSE 47–90; RESP 16–20; TEMP 97.2–98.3; O2SAT 95–98
[2018-02-09] MEDS: ACETAMINOPHEN/HYDROcodone 325 MG/5 MG TAB PO PRN ×6 (01:11→20:40)
[2018-02-09 07:55] LABS: AUTOMATED NEUTROPHIL # 3.2 TH/MM3 (1.8-7.7); BASOPHIL % 0.6 % (0.0-2.0); EOSINOPHIL # 0.3 TH/MM3 (0-0.4); HEMATOCRIT 34.9 % (39.0-51.0); HEMOGLOBIN 11.6 GM/DL (13.0-17.0); LYMPH % 22.2 % (9.0-44.0); LYMPHOCYTE # 1.1 TH/MM3 (1.0-4.8); MEAN CELL VOLUME 95.5 FL (80.0-100.0); MEAN CORPUSCULAR HEMOGLOBIN 31.8 PG (27.0-34.0); MEAN CORPUSCULAR HGB CONC 33.3 % (32.0-36.0); MEAN PLATELET VOLUME 10.3 FL (7.0-11.0); MONO % 7.1 % (0.0-8.0); MONOCYTE # 0.4 TH/MM3 (0-0.9); NEUT % 64.1 % (16.0-70.0); PLATELET COUNT 141 TH/MM3 (150-450); RED BLOOD COUNT 3.65 MIL/MM3 (4.50-5.90); RED CELL DISTRIBUTION WIDTH 13.8 % (11.6-17.2); WHITE BLOOD COUNT 5.1 TH/MM3 (4.0-11.0)
[2018-02-09 08:31] LABS: ALBUMIN 3.1 GM/DL (3.4-5.0); ALKALINE PHOSPHATASE 63 U/L (45-117); ALT (GPT) 14 U/L (12-78); AST (GOT) 14 U/L (15-37); BICARBONATE 24.9 MEQ/L (21.0-32.0); BLOOD UREA NITROGEN 4 MG/DL (7-18); CALCIUM 8.1 MG/DL (8.5-10.1); CHLORIDE 110 MEQ/L (98-107); CREATININE 0.67 MG/DL (0.60-1.30); GLOMERULAR FILTRATION RATE 118 ML/MIN (>89); GLUCOSE,RANDOM 86 MG/DL (74-106); SODIUM (NA) 143 MEQ/L (136-145); TOTAL BILIRUBIN ADULT 0.6 MG/DL (0.2-1.0); TOTAL PROTEIN 5.9 GM/DL (6.4-8.2)
[2018-02-09] MEDS: DOCUSATE SODIUM 50 MG/SENNA 8.6 MG TAB PO SCH ×2 (09:00→20:42)
[2018-02-09] MEDS: SODIUM CHLORIDE 0.9% FLUSH 10 ML FLUSH IV FLUSH SCH ×2 (09:00→20:41)
[2018-02-09] MEDS: TERAZOSIN HCL 5 MG CAP PO SCH ×2 (09:00→14:03)
--- NOTE | 2018-02-09 09:13 | EKG ---
Date Performed: 02/08/2018 Time Performed: 21:49:47 PTAGE: 67 years EKG: SINUS BRADYCARDIA BORDERLINE ECG Since the PREVIOUS TRACING , no significant change noted PREVIOUS TRACIN02/08/2018 11.57 DOCTOR: Gio Wright Interpretating Date/Time 02/09/2018 09:12:53
--- NOTE | 2018-02-09 09:13 | EKG ---
Date Performed: 02/08/2018 Time Performed: 11:57:08 PTAGE: 67 years EKG: SINUS TACHYCARDIA ABNORMAL RHYTHM ECG Since the PREVIOUS TRACING , no significant change noted PREVIOUS TRACIN12/18/2017 10.26 DOCTOR: Gio Wright Interpretating Date/Time 02/09/2018 09:13:02
[2018-02-09] MEDS: SODIUM CHLOR 0.9% 1000 ML INJ 1,000 ML IV SCH ×2 (10:25→20:43)
--- NOTE | 2018-02-09 12:07 | HHI.HP ---
History of Present Illness Primary Care Physician Unknown Admission Diagnosis acute syncope, sinus tachycardia, tongue cancer Diagnoses: History of Present Illness 67-year-old male that presents to the ED for evaluation of possible syncope and arrhythmia. Apparently patient was on his bathroom when she had a possible syncopal episode where he felt palpitations as well as shortness of breath. He voices this happens from time to time. He ahs never has a cardiac work up, he denied any chest pain. He is being treated for cancer of Tongue and just found out that he also has colon ca. He was seen at [facility], and is seeing Dr Madison for radiation and will then start chemo. ON LICENSE OF [facility] Review of Systems Except as stated in HPI: all other systems reviewed are Neg Past Family Social History Allergies: Coded Allergies: penicillin G (Verified Allergy, Unknown, 02/08/18) Past Medical History Anxiety Arthritis Cancer, Tongue, colon Enlarged prostate Past Surgical History partial Glossectomy to Right Reported Medications Terazosin 10mg bid Tramadol 50 mg q6 Active Ordered Medications Current Medications Medications (Trade) Dose Ordered Sig/Tom Route Start Time Stop Time Status Last Admin Sodium Chloride 1,000 ml @ 100 mls/hr Q10H IV 02/08/18 17:00 02/08/18 21:28 (NS Flush) 2 ml UNSCH PRN IV FLUSH 02/08/18 16:00 (NS Flush) 2 ml BID IV FLUSH 02/08/18 21:00 02/08/18 21:11 (Tylenol) 650 mg Q4H PRN PO 02/08/18 16:00 (Zofran Odt) 4 mg Q6H PRN PO 02/08/18 16:00 (Ambien) 5 mg HS PRN PO 02/08/18 16:00 (Lovenox Inj) 40 mg Q24H SQ 02/08/18 17:00 02/08/18 17:10 (Narcan Inj) 0.4 mg UNSCH PRN IV PUSH 02/08/18 16:00 (Bella-Colace) 1 tab BID PO 02/08/18 21:00 02/08/18 21:10 (Milk Of Magnesia Liq) 30 ml Q12H PRN PO 02/08/18 16:00 (Senokot) 17.2 mg Q12H PRN PO 02/08/18 16:00 (Dulcolax Supp) 10 mg DAILY PRN RECTAL 02/08/18 16:00 (Lactulose Liq) 30 ml DAILY PRN PO 02/08/18 16:00 (Hytrin) 10 mg BID PO 02/08/18 21:00 02/08/18 21:10 (Ultram) 50 mg Q6H PRN PO 02/08/18 16:00 ([place] 5-325 Mg) 1 tab Q4H PRN PO 02/08/18 16:00 02/09/18 09:03 Social History Positive for Tobacco Positive for ETOH Physical Exam Vital Signs Vital Signs Date Time Temp Pulse Resp B/P (MAP) Pulse Ox O2 Delivery O2 Flow Rate FiO2 02/09/18 10:03 18 02/09/18 08:27 64 02/09/18 08:00 Room Air 02/09/18 08:00 98.2 90 18 154/67 (96) 96 02/09/18 04:00 97.6 71 20 146/71 (96) 96 02/09/18 04:00 47 02/09/18 04:00 Room Air 02/09/18 00:12 97.2 51 20 134/70 (91) 97 02/09/18 00:00 Room Air 02/09/18 00:00 49 02/08/18 22:00 59 02/08/18 22:00 Room Air 02/08/18 20:00 97.3 62 20 145/67 (93) 98 02/08/18 16:45 75 18 168/77 (107) 99 Room Air 02/08/18 13:22 78 18 141/60 (87) 100 Room Air Physical Exam GENERAL: This is a well-nourished, well-developed patient, in no apparent distress. SKIN: No rashes, ecchymoses or lesions. Cool and dry. HEAD: Atraumatic. Normocephalic. No temporal or scalp tenderness. EYES: Pupils equal round and reactive. Extraocular motions intact. No scleral icterus. No injection or drainage. ENT: Nose without bleeding, purulent drainage or septal hematoma, Tongue deformity Airway patent. NECK: Trachea midline. No JVD or lymphadenopathy. Supple, nontender, no meningeal signs. CARDIOVASCULAR: Regular rate and rhythm without murmurs, gallops, or rubs. RESPIRATORY: Clear to auscultation. Breath sounds equal bilaterally. No wheezes , rales, or rhonchi. GASTROINTESTINAL: Abdomen soft, non-tender, nondistended. MUSCULOSKELETAL: Extremities without clubbing, cyanosis, or edema. No joint tenderness, effusion, or edema noted. No calf tenderness. Negative Homans sign bilaterally. NEUROLOGICAL: Awake and alert. difficult speech related to tongue discomfort Laboratory Laboratory Tests Test 02/09/18 06:26 White Blood Count 5.1 Red Blood Count 3.65 Hemoglobin 11.6 Hematocrit 34.9 Mean Corpuscular Volume 95.5 Mean Corpuscular Hemoglobin 31.8 Mean Corpuscular Hemoglobin Concent 33.3 Red Cell Distribution Width 13.8 Platelet Count 141 Mean Platelet Volume 10.3 Neutrophils (%) (Auto) 64.1 Lymphocytes (%) (Auto) 22.2 Monocytes (%) (Auto) 7.1 Eosinophils (%) (Auto) 6.0 Basophils (%) (Auto) 0.6 Neutrophils # (Auto) 3.2 Lymphocytes # (Auto) 1.1 Monocytes # (Auto) 0.4 Eosinophils # (Auto) 0.3 Basophils # (Auto) 0.0 CBC Comment DIFF FINAL Differential Comment Blood Urea Nitrogen 4 Creatinine 0.67 Random Glucose 86 Total Protein 5.9 Albumin 3.1 Calcium Level 8.1 Alkaline Phosphatase 63 Aspartate Amino Transf (AST/SGOT) 14 Alanine Aminotransferase (ALT/SGPT) 14 Total Bilirubin 0.6 Sodium Level 143 Potassium Level 3.8 Chloride Level 110 Carbon Dioxide Level 24.9 Anion Gap 8 Estimat Glomerular Filtration Rate 118 Result Diagram: 02/09/1862502/09/18625 Caprini VTE Risk Assessment Caprini VTE Risk Assessment: Mod/High Risk (score >= 2) Caprini Risk Assessment Model Point Value = 1 Point Value = 2 Point Value = 3 Point Value = 5 Age 41-60 Minor surgery BMI > 25 kg/m2 Swollen legs Varicose veins or History of unexplained or recurrent spontaneous Oral contraceptives or hormone replacement Sepsis (< 1 month) Serious lung disease, including pneumonia (< 1 month) Abnormal pulmonary function Acute myocardial infarction Congestive heart failure (< 1 month) History of inflammatory bowel disease Medical patient at bed rest Age 61-74 Arthroscopic surgery Major open surgery (> 45 min) Laparoscopic surgery (> 45 min) Malignancy Confined to bed (> 72 hours) Immobilizing plaster cast Central venous access Age >= 75 History of VTE Family history of VTE Factor V Leiden Prothrombin [id number] Lupus anticoagulant Anticardiolipin antibodies Elevated serum homocysteine Heparin-induced thrombocytopenia Other congenital or acquired thrombophilia Stroke (< 1 month) Elective arthroplasty Hip, pelvis, or leg fracture Acute spinal cord injury (< 1 month) Prophylaxis Regimen Total Risk Factor Score Risk Level Prophylaxis Regimen 0-1 Low Early ambulation 2 Moderate Order ONE of the following: *Sequential Compression Device (SCD) *Heparin 5000 units SQ BID 3-4 Higher Order ONE of the following medications: *Heparin 5000 units SQ TID *Enoxaparin/Lovenox 40 mg SQ daily (WT < 150 kg, CrCl > 30 mL/min) *Enoxaparin/Lovenox 30 mg SQ daily (WT < 150 kg, CrCl > 10-29 mL/min) *Enoxaparin/Lovenox 30 mg SQ BID (WT < 150 kg, CrCl > 30 mL/min) AND/OR *Sequential Compression Device (SCD) 5 or more Highest Order ONE of the following medications: *Heparin 5000 units SQ TID (Preferred with Epidurals) *Enoxaparin/Lovenox 40 mg SQ daily (WT < 150 kg, CrCl > 30 mL/min) *Enoxaparin/Lovenox 30 mg SQ daily (WT < 150 kg, CrCl > 10-29 mL/min) *Enoxaparin/Lovenox 30 mg SQ BID (WT < 150 kg, CrCl > 30 mL/min) AND *Sequential Compression Device (SCD) Assessment and Plan Problem List: (1) Arrhythmia ICD Codes: I49.9 - Cardiac arrhythmia, unspecified Status: Acute (2) Syncope, near ICD Codes: R55 - Syncope and collapse Status: Acute (3) Tongue cancer ICD Codes: C02.9 - Malignant neoplasm of tongue, unspecified Status: Acute Assessment and Plan 02/09/18- Telemetry monitoring, cardiac consult, VSS afebrile. C/O pain to Tongue , R/T carcinoma,scheduled to start Radiation, with Dr Baron on Wednesday 02/14 at 13:00 confirmed. Problem Qualifiers (1) Arrhythmia: Qualified Codes: I49.9 - Cardiac arrhythmia, unspecified Joycelyn Wooten Feb 09, 2018 12:07
[2018-02-09] MEDS ORDERED: LORazepam 0.5 MG TAB PO PRN (15:45)
--- NOTE | 2018-02-09 16:53 | PD.CARD.PN ---
Subjective Subjective Remarks No CP or SOB, c/o ESCALANTE and oral pain, ambulating in the room with no dizziness or lightheadedness Objective Medications Current Medications Medications (Trade) Dose Ordered Sig/Tom Route Start Time Stop Time Status Last Admin Sodium Chloride 1,000 ml @ 100 mls/hr Q10H IV 02/08/18 17:00 02/08/18 21:28 (NS Flush) 2 ml UNSCH PRN IV FLUSH 02/08/18 16:00 (NS Flush) 2 ml BID IV FLUSH 02/08/18 21:00 02/08/18 21:11 (Tylenol) 650 mg Q4H PRN PO 02/08/18 16:00 (Zofran Odt) 4 mg Q6H PRN PO 02/08/18 16:00 (Ambien) 5 mg HS PRN PO 02/08/18 16:00 (Lovenox Inj) 40 mg Q24H SQ 02/08/18 17:00 02/08/18 17:10 (Narcan Inj) 0.4 mg UNSCH PRN IV PUSH 02/08/18 16:00 (Bella-Colace) 1 tab BID PO 02/08/18 21:00 02/08/18 21:10 (Milk Of Magnesia Liq) 30 ml Q12H PRN PO 02/08/18 16:00 (Senokot) 17.2 mg Q12H PRN PO 02/08/18 16:00 (Dulcolax Supp) 10 mg DAILY PRN RECTAL 02/08/18 16:00 (Lactulose Liq) 30 ml DAILY PRN PO 02/08/18 16:00 (Hytrin) 10 mg BID PO 02/08/18 21:00 02/09/18 14:03 ([place] 5-325 Mg) 1 tab Q4H PRN PO 02/08/18 16:00 02/09/18 12:57 (Lyrica) 50 mg TID PO 02/09/18 18:00 (Paxil Cr) 25 mg DAILY PO 02/09/18 16:00 (Ativan) 0.5 mg QID PRN PO 02/09/18 15:45 Vital Signs / I&O Vital Signs Date Time Temp Pulse Resp B/P (MAP) Pulse Ox O2 Delivery O2 Flow Rate FiO2 02/09/18 13:57 18 02/09/18 08:27 64 02/09/18 08:00 Room Air 02/09/18 08:00 98.2 90 18 154/67 (96) 96 02/09/18 04:00 97.6 71 20 146/71 (96) 96 02/09/18 04:00 47 02/09/18 04:00 Room Air 02/09/18 00:12 97.2 51 20 134/70 (91) 97 02/09/18 00:00 Room Air 02/09/18 00:00 49 02/08/18 22:00 59 02/08/18 22:00 Room Air 02/08/18 20:00 97.3 62 20 145/67 (93) 98 I/O 02/08/18 02/08/18 02/08/18 02/09/18 02/09/18 02/09/18 07:00 15:00 23:00 07:00 15:00 23:00 Intake Total 1000 ml 360 ml Balance 1000 ml 360 ml Intake Oral 360 ml IV Total 1000 ml # Voids 2 Physical Exam GENERAL: In moderate distress due to pain SKIN: Warm and dry. HEAD: Normocephalic. EYES: No scleral icterus. No injection or drainage. NECK: Supple, trachea midline. No JVD or lymphadenopathy. CARDIOVASCULAR: Regular rate and rhythm without murmurs, gallops, or rubs. RESPIRATORY: Breath sounds equal bilaterally. No accessory muscle use. GASTROINTESTINAL: Abdomen soft, non-tender, nondistended. MUSCULOSKELETAL: No cyanosis, or edema. Laboratory Laboratory Tests Test 02/09/18 06:26 White Blood Count 5.1 TH/MM3 Red Blood Count 3.65 MIL/MM3 Hemoglobin 11.6 GM/DL Hematocrit 34.9 % Mean Corpuscular Volume 95.5 FL Mean Corpuscular Hemoglobin 31.8 PG Mean Corpuscular Hemoglobin Concent 33.3 % Red Cell Distribution Width 13.8 % Platelet Count 141 TH/MM3 Mean Platelet Volume 10.3 FL Neutrophils (%) (Auto) 64.1 % Lymphocytes (%) (Auto) 22.2 % Monocytes (%) (Auto) 7.1 % Eosinophils (%) (Auto) 6.0 % Basophils (%) (Auto) 0.6 % Neutrophils # (Auto) 3.2 TH/MM3 Lymphocytes # (Auto) 1.1 TH/MM3 Monocytes # (Auto) 0.4 TH/MM3 Eosinophils # (Auto) 0.3 TH/MM3 Basophils # (Auto) 0.0 TH/MM3 CBC Comment DIFF FINAL Differential Comment Blood Urea Nitrogen 4 MG/DL Creatinine 0.67 MG/DL Random Glucose 86 MG/DL Total Protein 5.9 GM/DL Albumin 3.1 GM/DL Calcium Level 8.1 MG/DL Alkaline Phosphatase 63 U/L Aspartate Amino Transf (AST/SGOT) 14 U/L Alanine Aminotransferase (ALT/SGPT) 14 U/L Total Bilirubin 0.6 MG/DL Sodium Level 143 MEQ/L Potassium Level 3.8 MEQ/L Chloride Level 110 MEQ/L Carbon Dioxide Level 24.9 MEQ/L Anion Gap 8 MEQ/L Estimat Glomerular Filtration Rate 118 ML/MIN Assessment and Plan Problem List: (1) Syncope, near ICD Codes: R55 - Syncope and collapse Status: Acute (2) Paroxysmal supraventricular tachycardia ICD Codes: I47.1 - Supraventricular tachycardia (3) Headache ICD Codes: R51 - Headache (4) Tongue cancer ICD Codes: C02.9 - Malignant neoplasm of tongue, unspecified Status: Acute (5) Subclavian artery stenosis, left ICD Codes: I77.1 - Stricture of artery Status: Acute (6) Smoking ICD Codes: F17.200 - Nicotine dependence, unspecified, uncomplicated Assessment and Plan No new cardiac issues. No angina or CHF. Tele with SR and no significant arrhythmias. He has had infrequent episodes of sustained SVT, not requiring antiarrhythmic therapy. Echo with low normal LV systolic function (EF 50%). Continue pain control. Keep well hydrated. Increase activity. Jose Menendez MD Feb 09, 2018 16:53
--- NOTE | 2018-02-09 16:59 | ECHRPT ---
Indication: syncope CONCLUSIONS Normal left ventricular size. Wall thickness is normal. The left ventricular systolic function is low normal with an estimated ejection fraction of 50%. Mitral annular calcification is present. Aortic valve sclerosis is present. Trace aortic valve regurgitation. The estimated pulmonary arterial pressure is 25 mmHg. BP: / HR: Rhythm: Technical Quality: FINDINGS LEFT VENTRICLE Normal left ventricular size. Wall thickness is normal. The left ventricular systolic function is mildly reduced with an estimated ejection fraction in the range of 45- 50%. RIGHT VENTRICLE Normal right ventricular size and systolic function. LEFT ATRIUM The left atrial size is normal. RIGHT ATRIUM The right atrial size is normal. ATRIAL SEPTUM Normal atrial septal thickness without atrial level shunting by limited color doppler interrogation. AORTA The aortic root and proximal ascending aorta are normal in size on limited imaging. MITRAL VALVE Mitral annular calcification is present. AORTIC VALVE Aortic valve sclerosis is present. Trace aortic valve regurgitation. TRICUSPID VALVE The estimated pulmonary arterial pressure is 25mmHg. PULMONARY VALVE The pulmonary valve is not well visualized. VESSELS The inferior vena cava is normal in size. PERICARDIUM No pericardial effusion. Jose Menendez MD, FACC (Electronically Signed) Final Date:09 February 2018 16:56
[2018-02-09] MEDS: PREGABALIN 25 MG CAP PO SCH (17:24)
[2018-02-09] MEDS: ENOXAPARIN SODIUM 40 MG/0.4 ML SYRINGE SQ SCH (17:24)
[2018-02-09] MEDS: PARoxetine 25 MG CONTROLLED RELEASE TAB PO SCH (18:01)
[2018-02-10] VITALS: BP 174/76; PULSE 51; PULSE 53; RESP 16; TEMP 97.7; O2SAT 97
[2018-02-10 04:00] VITALS: BP 180/76; PULSE 56; PULSE 61; RESP 18; TEMP 98.4; O2SAT 98
[2018-02-10] MEDS: SODIUM CHLOR 0.9% 1000 ML INJ 1,000 ML IV SCH ×2 (04:09→17:02)
[2018-02-10] MEDS: ACETAMINOPHEN/HYDROcodone 325 MG/5 MG TAB PO PRN ×5 (04:57→21:15)
[2018-02-10 08:00] VITALS: BP 136/80; PULSE 72; PULSE 94; RESP 18; TEMP 98.3; O2SAT 96
[2018-02-10] MEDS: DOCUSATE SODIUM 50 MG/SENNA 8.6 MG TAB PO SCH ×2 (09:00→21:00)
[2018-02-10] MEDS: SODIUM CHLORIDE 0.9% FLUSH 10 ML FLUSH IV FLUSH SCH ×2 (09:00→21:15)
[2018-02-10] MEDS: PREGABALIN 25 MG CAP PO SCH ×3 (09:16→17:03)
[2018-02-10] MEDS: PARoxetine 25 MG CONTROLLED RELEASE TAB PO SCH (09:16)
[2018-02-10] MEDS: TERAZOSIN HCL 5 MG CAP PO SCH ×2 (09:16→21:15)
[2018-02-10 12:00] VITALS: BP 151/76; PULSE 68; PULSE 82; RESP 18; TEMP 98.2; O2SAT 97
--- NOTE | 2018-02-10 15:29 | HHI.PR ---
Subjective Remarks Presented with syncope and is being eval by Cards at this time. He denies recurrence this adm. Objective Vital Signs Date Time Temp Pulse Resp B/P (MAP) Pulse Ox O2 Delivery O2 Flow Rate FiO2 02/10/18 12:00 98.2 68 18 151/76 (101) 97 02/10/18 09:00 Room Air 02/10/18 08:00 94 02/10/18 08:00 98.3 72 18 136/80 (98) 96 02/10/18 04:00 61 02/10/18 04:00 98.4 56 18 180/76 (110) 98 02/10/18 04:00 Room Air 02/10/18 00:00 51 02/10/18 00:00 Room Air 02/10/18 00:00 97.7 53 16 174/76 (108) 97 02/09/18 20:00 Room Air 02/09/18 20:00 63 02/09/18 19:11 97.9 61 16 144/67 (92) 97 02/09/18 18:27 18 02/09/18 18:27 18 02/09/18 16:00 98.1 66 18 171/81 (111) 95 02/09/18 16:00 56 I/O 02/09/18 02/09/18 02/09/18 02/10/18 02/10/18 02/10/18 07:00 15:00 23:00 07:00 15:00 23:00 Intake Total 360 ml 480 ml Balance 360 ml 480 ml Intake Oral 360 ml 480 ml # Voids 2 4 4 # Bowel Movements 1 0 Result Diagram: 02/09/1862502/09/18 06 Imaging Last Impressions Head CT 02/08/181125 Signed Impressions: CONCLUSION: 1. Negative noncontrast head CT. Chest X-Ray 02/08/181125 Signed Impressions: CONCLUSION: No acute cardiopulmonary process. CT Angiography 02/08/18 0000 Signed Impressions: CONCLUSION: 1. No pulmonary embolus identified. 2. 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 3. Mild COPD changes in the pulmonary parenchyma Objective Remarks GENERAL: He is awake, alert and C/O not enough to eat. SKIN: Warm and dry. HEAD: Normocephalic. Lesion noted in mouth on mucosa. EYES: No scleral icterus. No injection or drainage. NECK: Supple, trachea midline. No JVD or lymphadenopathy. CARDIOVASCULAR: Regular rate and rhythm without murmurs, gallops, or rubs. RESPIRATORY: Breath sounds equal bilaterally. No accessory muscle use. GASTROINTESTINAL: Abdomen soft, non-tender, nondistended. MUSCULOSKELETAL: No cyanosis, or edema. BACK: Nontender without obvious deformity. No CVA tenderness. Medications and IVs Current Medications Medications (Trade) Dose Ordered Sig/Tom Route Start Time Stop Time Status Last Admin Sodium Chloride 1,000 ml @ 100 mls/hr Q10H IV 02/08/18 17:00 02/10/18 04:09 (NS Flush) 2 ml UNSCH PRN IV FLUSH 02/08/18 16:00 (NS Flush) 2 ml BID IV FLUSH 02/08/18 21:00 02/09/18 20:41 (Tylenol) 650 mg Q4H PRN PO 02/08/18 16:00 (Zofran Odt) 4 mg Q6H PRN PO 02/08/18 16:00 (Ambien) 5 mg HS PRN PO 02/08/18 16:00 (Lovenox Inj) 40 mg Q24H SQ 02/08/18 17:00 02/09/18 17:24 (Narcan Inj) 0.4 mg UNSCH PRN IV PUSH 02/08/18 16:00 (Bella-Colace) 1 tab BID PO 02/08/18 21:00 02/08/18 21:10 (Milk Of Magnesia Liq) 30 ml Q12H PRN PO 02/08/18 16:00 (Senokot) 17.2 mg Q12H PRN PO 02/08/18 16:00 (Dulcolax Supp) 10 mg DAILY PRN RECTAL 02/08/18 16:00 (Lactulose Liq) 30 ml DAILY PRN PO 02/08/18 16:00 (Hytrin) 10 mg BID PO 02/08/18 21:00 02/10/18 09:16 ([place] 5-325 Mg) 1 tab Q4H PRN PO 02/08/18 16:00 02/10/18 13:12 (Lyrica) 50 mg TID PO 02/09/18 18:00 02/10/18 13:11 (Paxil Cr) 25 mg DAILY PO 02/09/18 16:00 02/10/18 09:16 (Ativan) 0.5 mg QID PRN PO 02/09/18 15:45 Assessment and Plan Problem List: (1) Tongue cancer ICD Codes: C02.9 - Malignant neoplasm of tongue, unspecified Status: Chronic Plan: He will F/U for outpatient radiation therapy after D/C (2) Subclavian artery stenosis, left ICD Codes: I77.1 - Stricture of artery Status: Chronic Plan: Noted on chest CT angio. F/U Cards recommendations. (3) Syncope, near ICD Codes: R55 - Syncope and collapse Status: Acute Plan: Will plan D/C home when cleared by Cards. The patient believes Tramadol caused the syncope and it has been D/Gerry this adm. (4) Paroxysmal supraventricular tachycardia ICD Codes: I47.1 - Supraventricular tachycardia Status: Acute Plan: F/U Cards recommendations (5) Headache ICD Codes: R51 - Headache Status: Acute Plan: Patient believes ESCALANTE was due to tramadol as well. Now D/Gerry and tells me ESCALANTE is nearly resolved. Assessment and Plan Syncope and SVT. Cards W/U in progress. Will cont to monitor and plan D/C when cleared by Cards and W/U complete. Discussed Condition With patient and nurse Discharge Planning Home Problem Qualifiers (1) Headache: Shlomo Mock Feb 10, 2018 15:29
[2018-02-10 16:00] VITALS: BP 157/75; PULSE 58; PULSE 69; RESP 18; TEMP 98.1; O2SAT 98
[2018-02-10] MEDS: ENOXAPARIN SODIUM 40 MG/0.4 ML SYRINGE SQ SCH (17:02)
[2018-02-10 20:00] VITALS: BP 136/61; PULSE 64; PULSE 71; RESP 16; TEMP 97.7; O2SAT 96
[2018-02-11] VITALS (8 sets, daily range): BP systolic 138–176; BP diastolic 71–92; PULSE 43–115; RESP 16–20; TEMP 97.7–98.2; O2SAT 95–97
[2018-02-11] MEDS: ACETAMINOPHEN/HYDROcodone 325 MG/5 MG TAB PO PRN ×5 (01:22→17:30)
[2018-02-11] MEDS: SODIUM CHLOR 0.9% 1000 ML INJ 1,000 ML IV SCH ×2 (03:02→08:59)
[2018-02-11] MEDS: SODIUM CHLORIDE 0.9% FLUSH 10 ML FLUSH IV FLUSH SCH (08:57)
[2018-02-11] MEDS: TERAZOSIN HCL 5 MG CAP PO SCH (08:57)
[2018-02-11] MEDS: PREGABALIN 25 MG CAP PO SCH ×3 (08:58→17:30)
[2018-02-11] MEDS: PARoxetine 25 MG CONTROLLED RELEASE TAB PO SCH (08:58)
[2018-02-11] MEDS: DOCUSATE SODIUM 50 MG/SENNA 8.6 MG TAB PO SCH (08:59)
--- NOTE | 2018-02-11 11:46 | HHI.PR ---
Subjective Remarks Presented with syncope and is being eval by Cards. He denies recurrence this adm. He is convinced the episodes were caused by tramadol which he is no longer taking. Will await clearance from Cards for D/C home. Objective Vital Signs Date Time Temp Pulse Resp B/P (MAP) Pulse Ox O2 Delivery O2 Flow Rate FiO2 02/11/18 08:54 98.2 72 17 162/71 (101) 96 02/11/18 04:00 115 02/11/18 04:00 98.1 65 16 138/71 (93) 95 02/11/18 00:00 97.7 63 18 154/80 (104) 96 02/11/18 00:00 62 02/10/18 20:00 71 02/10/18 20:00 97.7 64 16 136/61 (86) 96 02/10/18 20:00 Room Air 02/10/18 16:00 69 02/10/18 16:00 98.1 58 18 157/75 (102) 98 02/10/18 12:00 98.2 68 18 151/76 (101) 97 02/10/18 12:00 82 I/O 02/10/18 02/10/18 02/10/18 02/11/18 02/11/18 02/11/18 07:00 15:00 23:00 07:00 15:00 23:00 Intake Total 720 ml 1293 ml Balance 720 ml 1293 ml Intake Oral 720 ml IV Total 1293 ml # Voids 4 4 # Bowel Movements 0 Result Diagram: 02/09/18 0626 02/09/18 06 Imaging Last Impressions Head CT 02/08/18 1126 Signed Impressions: CONCLUSION: 1. Negative noncontrast head CT. Chest X-Ray 02/08/181125 Signed Impressions: CONCLUSION: No acute cardiopulmonary process. CT Angiography 02/08/18 0000 Signed Impressions: CONCLUSION: 1. No pulmonary embolus identified. 2. 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 3. Mild COPD changes in the pulmonary parenchyma Objective Remarks GENERAL: He is awake, alert and still C/O not getting enough to eat but has been progressed to a full liquid diet. SKIN: Warm and dry. HEAD: Normocephalic. Lesion noted in mouth on mucosa. EYES: No scleral icterus. No injection or drainage. NECK: Supple, trachea midline. No JVD or lymphadenopathy. CARDIOVASCULAR: Regular rate and rhythm without murmurs, gallops, or rubs. RESPIRATORY: Breath sounds equal bilaterally. No accessory muscle use. GASTROINTESTINAL: Abdomen soft, non-tender, nondistended. MUSCULOSKELETAL: No cyanosis, or edema. BACK: Nontender without obvious deformity. No CVA tenderness. Medications and IVs Current Medications Medications (Trade) Dose Ordered Sig/Tom Route Start Time Stop Time Status Last Admin Sodium Chloride 1,000 ml @ 100 mls/hr Q10H IV 02/08/18 17:00 02/11/18 08:59 (NS Flush) 2 ml UNSCH PRN IV FLUSH 02/08/18 16:00 (NS Flush) 2 ml BID IV FLUSH 02/08/18 21:00 02/11/18 08:57 (Tylenol) 650 mg Q4H PRN PO 02/08/18 16:00 (Zofran Odt) 4 mg Q6H PRN PO 02/08/18 16:00 (Ambien) 5 mg HS PRN PO 02/08/18 16:00 02/10/18 21:15 (Lovenox Inj) 40 mg Q24H SQ 02/08/18 17:00 02/10/18 17:02 (Narcan Inj) 0.4 mg UNSCH PRN IV PUSH 02/08/18 16:00 (Bella-Colace) 1 tab BID PO 02/08/18 21:00 02/11/18 08:59 (Milk Of Magnesia Liq) 30 ml Q12H PRN PO 02/08/18 16:00 (Senokot) 17.2 mg Q12H PRN PO 02/08/18 16:00 (Dulcolax Supp) 10 mg DAILY PRN RECTAL 02/08/18 16:00 (Lactulose Liq) 30 ml DAILY PRN PO 02/08/18 16:00 (Hytrin) 10 mg BID PO 02/08/18 21:00 02/11/18 08:57 ([place] 5-325 Mg) 1 tab Q4H PRN PO 02/08/18 16:00 02/11/18 09:42 (Lyrica) 50 mg TID PO 02/09/18 18:00 02/11/18 08:58 (Paxil Cr) 25 mg DAILY PO 02/09/18 16:00 02/11/18 08:58 (Ativan) 0.5 mg QID PRN PO 02/09/18 15:45 Assessment and Plan Problem List: (1) Tongue cancer ICD Codes: C02.9 - Malignant neoplasm of tongue, unspecified Status: Chronic Plan: He will F/U for outpatient radiation therapy after D/C (2) Subclavian artery stenosis, left ICD Codes: I77.1 - Stricture of artery Status: Chronic Plan: Noted on chest CT angio. F/U Cards recommendations. (3) Syncope, near ICD Codes: R55 - Syncope and collapse Status: Acute Plan: Will plan D/C home when cleared by Cards. The patient believes Tramadol caused the syncope and it has been D/Gerry this adm. (4) Paroxysmal supraventricular tachycardia ICD Codes: I47.1 - Supraventricular tachycardia Status: Acute Plan: F/U Cards recommendations (5) Headache ICD Codes: R51 - Headache Status: Acute Plan: Patient believes ESCALANTE was due to tramadol as well. Now D/Gerry and tells me ESCALANTE is nearly resolved. Assessment and Plan Syncope and SVT. Cards W/U in progress. Will cont to monitor and plan D/C when cleared by Cards and W/U complete. Discussed Condition With patient Discharge Planning home Problem Qualifiers (1) Headache: Qualified Codes: R51 - Headache Shlomo Mock Feb 11, 2018 11:46
[2018-02-11] MEDS: ENOXAPARIN SODIUM 40 MG/0.4 ML SYRINGE SQ SCH (17:30)
--- NOTE | 2018-02-11 19:15 | HHI.DS ---
Discharge Summary Admission Date Feb 08, 2018 at 15:55 Admitting Diagnosis acute syncope, sinus tachycardia, tongue cancer (1) Arrhythmia Diagnosis: Principal ICD Codes: I49.9 - Cardiac arrhythmia, unspecified Status: Acute (2) Syncope, near Diagnosis: Principal ICD Codes: R55 - Syncope and collapse Status: Acute (3) Tongue cancer Diagnosis: Secondary ICD Codes: C02.9 - Malignant neoplasm of tongue, unspecified Status: Chronic (4) Paroxysmal supraventricular tachycardia Diagnosis: Principal ICD Codes: I47.1 - Supraventricular tachycardia Status: Acute (5) Headache Diagnosis: Secondary ICD Codes: R51 - Headache Status: Acute (6) Subclavian artery stenosis, left Diagnosis: Secondary ICD Codes: I77.1 - Stricture of artery Status: Chronic Brief History He presented after and episode of near syncope. He was seen in consult by Cards and W/U completed this Adm. CBC/BMP: 02/09/18 0626 02/09/18 0626 Significant Findings Laboratory Tests Test 02/09/18 06:26 Red Blood Count 3.65 MIL/MM3 (4.50-5.90) Hemoglobin 11.6 GM/DL (13.0-17.0) Hematocrit 34.9 % (39.0-51.0) Platelet Count 141 TH/MM3 (150-450) Eosinophils (%) (Auto) 6.0 % (0.0-4.0) Blood Urea Nitrogen 4 MG/DL (7-18) Total Protein 5.9 GM/DL (6.4-8.2) Albumin 3.1 GM/DL (3.4-5.0) Calcium Level 8.1 MG/DL (8.5-10.1) Aspartate Amino Transf (AST/SGOT) 14 U/L (15-37) Chloride Level 110 MEQ/L (98-107) Imaging Last Impressions Head CT 02/08/18 1126 Signed Impressions: CONCLUSION: 1. Negative noncontrast head CT. Chest X-Ray 02/08/18 1126 Signed Impressions: CONCLUSION: No acute cardiopulmonary process. CT Angiography 02/08/18 0000 Signed Impressions: CONCLUSION: 1. No pulmonary embolus identified. 2. 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 3. Mild COPD changes in the pulmonary parenchyma PE at Discharge GENERAL: He is awake, alert and still C/O not getting enough to eat but has been progressed to a full liquid diet. SKIN: Warm and dry. HEAD: Normocephalic. Lesion noted in mouth on mucosa. EYES: No scleral icterus. No injection or drainage. NECK: Supple, trachea midline. No JVD or lymphadenopathy. CARDIOVASCULAR: Regular rate and rhythm without murmurs, gallops, or rubs. RESPIRATORY: Breath sounds equal bilaterally. No accessory muscle use. GASTROINTESTINAL: Abdomen soft, non-tender, nondistended. MUSCULOSKELETAL: No cyanosis, or edema. BACK: Nontender without obvious deformity. No CVA tenderness. Hospital Course He has done well this adm without further episodes of near syncope. He has been cleared for D/C by Cards and will F/U with Dr. Beltran as scheduled and in our office next week. He will no longer take Tramadol and has an Rx for hydrocodone to be given to him at the time of D/C. He will F/U with radiation therapy and oncology for his mouth cancer as scheduled. Pt Condition on Discharge: Stable Discharge Disposition: Discharge Home Discharge Instructions DIET: Follow Instructions for: Full Liquid Diet Activities you can perform: Regular-No Restrictions Continued Medications: Terazosin (Terazosin) 10 Mg Cap 10 MG PO BID, #30 CAP 0 Refills Discontinued Medications: Tramadol (Tramadol) 50 Mg Tab 50 MG PO Q6H PRN for PAIN, TAB 0 Refills Shlomo Mock Feb 11, 2018 19:15
== END 2018-02-11 19:45 | disposition home or self-care (01) | DRG 312 ==
LOC: NEPE 11:16 → NEDA 15:47 → OBSVTOIN 15:55 → N04A 20:40
PROVIDERS: ADMIT Family Medicine; ATTEND Family Medicine
DX: R55 Syncope and collapse (principal); C18.9 Malignant neoplasm of colon, unspecified; C02.9 Malignant neoplasm of tongue, unspecified; I47.1 Supraventricular tachycardia; M19.90 Unspecified osteoarthritis, unspecified site; G89.3 Neoplasm related pain (acute) (chronic); Z88.0 Allergy status to penicillin; F41.9 Anxiety disorder, unspecified; F32.9 Major depressive disorder, single episode, unspecified; H93.19 Tinnitus, unspecified ear; Z87.442 Personal history of urinary calculi; N40.0 Benign prostatic hyperplasia without lower urinary tract symptoms; F17.200 Nicotine dependence, unspecified, uncomplicated; I70.8 Atherosclerosis of other arteries; R51 Headache; M17.11 Unilateral primary osteoarthritis, right knee
CPT/HCPCS: 70450; 71045; 71275; 80053; 82550; 82552; 83735; 84443; 84484; 85025; 85379; 85610; 85730; 93005; 93306; J1650; J2270; J2765; J7030; Q9967

== ENCOUNTER 2018-03-20 09:53 | Observation (INO) ==
--- NOTE | 2018-03-20 10:31 | ED ---
HPI General Chief Complaint: Chest Pain Stated Complaint: High Blood Pressure Time Seen by Provider: 03/20/18 10:05 Source: patient, family, RN notes reviewed and old records reviewed Mode of arrival: ambulatory Limitations: other (poor historian, caregiver supplements) History of Present Illness HPI narrative: 67 y/o male presents after he had low blood pressure at his oncologist office and was sent here. On the way he developed chest pain. He also has nausea. He denies other specific complaints. History is limited from patient, caregiver states patient was recently in the hospital for atrial tachycardia and has monitor that he follows with Dr. us. His last chemotherapy was a week ago as he could not get it yesterday. He is due to get a feeding tube tomorrow complaint: chest pain Complete Quality Measures for STEMI Alert Patients STEMI Alert: No Onset (ago): minute(s) Duration: constant Onset: during rest Severity: moderate Pain radiation: none Relieving factors: nothing Exacerbating factors: movement Associated symptoms: nausea Treatments prior to arrival chest pain: none Related Data Home Medications Medication Instructions Recorded Confirmed ibuprofen [Motrin IB] 400 mg PO QID PRN MDD 1600 02/23/18 03/20/18 ondansetron HCl [Zofran] 4 mg PO TID-QID PRN MDD 16 02/23/18 03/20/18 prochlorperazine 25 mg [place] Q12H PRN MDD 25 02/23/18 03/20/18 quetiapine 25 mg PO BID 02/23/18 03/20/18 terazosin 10 mg PO DAILY 02/23/18 03/20/18 Allergies Allergy/AdvReac Type Severity Reaction Status Date / Time penicillin G Allergy Unknown Rash Verified 02/23/18 07:32 tramadol Allergy Headache Verified 02/23/18 07:32 Opioids-Meperidine and AdvReac Headache Verified 02/23/18 07:32 Related Review of Systems Except as stated in HPI: all other systems reviewed are negative [facility] Medical History Medical History Prostate disorder (Acute) Schizophrenia (Acute) Throat cancer (Acute) Social History Social History Substance History: Active Abuse Second Hand Smoke Exposure: No Smoking Status: Former smoker Tobacco Type: Cigarettes How Often Do You Have a Drink Containing Alcohol: Never Recent Travel in [facility] within the Last 8 Weeks: No Recent Out of Country Travel within the Last 8 Weeks: No Substance Abuse Detail Marijuana: Substance Use Status: Active Route Used Substance Abuse: Inhalation Reason for Use: Feels Good Immunization History Tetanus Immunization: Unsure Hx Influenza Vaccine This Season: Yes Exam Narrative Exam Narrative: GENERAL: 67 y/o male in no apparent distress SKIN: Focused skin assessment warm/dry. HEAD: Atraumatic. Normocephalic. EYES: Pupils equal and round. No injection or drainage. ENT: No nasal bleeding or discharge. Mucous membranes pink and moist. NECK: Trachea midline. CARDIOVASCULAR: Regular rate and rhythm. RESPIRATORY: No accessory muscle use. Clear to auscultation. Breath sounds equal bilaterally. GASTROINTESTINAL: Abdomen soft, non-tender, nondistended. MUSCULOSKELETAL: No obvious deformities. No clubbing. No cyanosis. NEUROLOGICAL: Awake and alert. Motor grossly within normal limits. Course Reevaluation(s) Reevaluation #1: patient agrees to workup after discussion with his oncologist Consultations Consultation #1: dr daniel confirms history and agrees to admit with medicine Consultation #2: dr celeste agrees to admit Initial Documented Vital Signs Temperature 98.9 F 03/20/18 09:56 Pulse Rate 110 H 03/20/18 09:56 Respiratory Rate 16 03/20/18 09:56 Blood Pressure 99/62 L 03/20/18 09:56 Pulse Oximetry 98 03/20/18 09:56 Last Documented Vital Signs Temperature 98.9 F 03/20/18 10:05 Pulse Rate 88 03/20/18 12:35 Respiratory Rate 18 03/20/18 12:35 Blood Pressure 122/59 L 03/20/18 12:35 Pulse Oximetry 99 03/20/18 12:35 Medical Decision Making MDM Narrative Medical decision making narrative: Will check blood work, imaging and reevaluate Differential Diagnosis Differential Diagnosis: PE, anemia, renal failure, UTI Lab Data Lab results reviewed: Yes I reviewed the patient's lab results. Result diagrams: 03/20/18 11:14 03/20/18 10:10 Lab Results 03/20/18 03/20/18 03/20/18 Range/Units 10:10 10:38 10:38 WBC (4.0-11.0) th/mm3 RBC (4.50-5.90) mil/mm3 Hgb (13.0-17.0) gm/dL Hct (39.0-51.0) % MCV (80.0-100.0) fL MCH (27.0-34.0) pg MCHC (32.0-36.0) % RDW (11.6-17.2) % Plt Count (150-450) th/mm3 MPV (7.0-11.0) fL Prelim Diff (Auto) Neut % (Auto) (16.0-70.0) % Lymph % (Auto) (9.0-44.0) % Cobb % (Auto) (0.0-8.0) % Eos % (Auto) (0.0-4.0) % Baso % (Auto) (0.0-2.0) % Neut # (Auto) (1.8-7.7) th/mm3 Lymph # (Auto) (1.0-4.8) th/mm3 Cobb # (Auto) (0.0-0.9) th/mm3 Eos # (Auto) (0.0-0.4) th/mm3 Baso # (Auto) (0.0-0.2) th/mm3 WBC Differential Seg Neuts % (Manual) (16-70) % Band Neuts % (Manual) (0-6) % Lymphocytes % (Manual) (9-44) % Monocytes % (Manual) (0-8) % Abs Neuts (Manual) (1.8-7.7) th/mm3 Differential Comment Platelet Estimate (Normal) Platelet Morphology (Normal) PT (9.8-11.6) sec INR Ratio APTT (24.3-30.1) sec Sodium 132 L (136-145) meq/L Potassium 3.6 (3.5-5.1) meq/L Chloride 96 L (98-107) meq/L Carbon Dioxide 26.5 (21.0-32.0) meq/L Anion Gap 10 (5-15) meq/L BUN 10 (7-18) mg/dL Creatinine 0.69 (0.60-1.30) mg/dL Estimated GFR Greater than 89 (>89) mL/min Random Glucose 123 H (74-106) mg/dL Lactic Acid 1.2 (0.4-2.0) mmol/L Calcium 9.0 (8.5-10.1) mg/dL Total Bilirubin 0.6 (0.2-1.0) mg/dL AST 17 (15-37) U/L ALT 17 (12-78) U/L Alkaline Phosphatase 73 (45-117) U/L Total Creatine Kinase 82 (39-308) U/L Troponin I Less than 0.02 L (0.02-0.05) ng/mL Total Protein 6.9 (6.4-8.2) g/dL Albumin 3.6 (3.4-5.0) g/dL Urine Color Yellow (Yellw/Straw) Urine Clarity Hazy H (Clear) Urine pH 7.0 (5.0-8.5) Ur Specific [place] 1.014 (1.002-1.035) Urine Protein Negative (Neg-Trace) mg/dL Urine Glucose (UA) Negative (Negative) mg/dL Urine Ketones 20 (Negative) mg/dL Urine Occult Blood Negative (Negative) Urine Nitrate Negative (Negative) Urine Bilirubin Negative (Negative) Urine Urobilinogen 2.0 H (Less than 2) mg/dL Ur Leukocyte Esterase Negative (Negative) Urine RBC 2 (0-3) /hpf Urine WBC Less than 1 (0-5) /hpf Urine Mucus Few H (Occasional) /lpf Micro UA Comment Culture not ind Urine Culture Comments Culture not ind 03/20/18 03/20/18 Range/Units 11:14 11:14 WBC 3.0 L (4.0-11.0) th/mm3 RBC 3.83 L (4.50-5.90) mil/mm3 Hgb 12.4 L (13.0-17.0) gm/dL Hct 36.2 L (39.0-51.0) % MCV 94.5 (80.0-100.0) fL MCH 32.4 (27.0-34.0) pg MCHC 34.3 (32.0-36.0) % RDW 13.3 (11.6-17.2) % Plt Count 90 L (150-450) th/mm3 MPV 8.2 (7.0-11.0) fL Prelim Diff (Auto) Slide review pending Neut % (Auto) 86.3 H (16.0-70.0) % Lymph % (Auto) 4.2 L (9.0-44.0) % Cobb % (Auto) 8.7 H (0.0-8.0) % Eos % (Auto) 0.6 (0.0-4.0) % Baso % (Auto) 0.2 (0.0-2.0) % Neut # (Auto) 2.6 (1.8-7.7) th/mm3 Lymph # (Auto) 0.1 L (1.0-4.8) th/mm3 Cobb # (Auto) 0.3 (0.0-0.9) th/mm3 Eos # (Auto) 0.0 (0.0-0.4) th/mm3 Baso # (Auto) 0.0 (0.0-0.2) th/mm3 WBC Differential Manual diff final Seg Neuts % (Manual) 84 H (16-70) % Band Neuts % (Manual) 5 (0-6) % Lymphocytes % (Manual) 4 L (9-44) % Monocytes % (Manual) 7 (0-8) % Abs Neuts (Manual) 2.7 (1.8-7.7) th/mm3 Differential Comment . Platelet Estimate Low L (Normal) Platelet Morphology Normal (Normal) PT 11.4 (9.8-11.6) sec INR 1.1 Ratio APTT 24.6 (24.3-30.1) sec Sodium (136-145) meq/L Potassium (3.5-5.1) meq/L Chloride (98-107) meq/L Carbon Dioxide (21.0-32.0) meq/L Anion Gap (5-15) meq/L BUN (7-18) mg/dL Creatinine (0.60-1.30) mg/dL Estimated GFR (>89) mL/min Random Glucose (74-106) mg/dL Lactic Acid (0.4-2.0) mmol/L Calcium (8.5-10.1) mg/dL Total Bilirubin (0.2-1.0) mg/dL AST (15-37) U/L ALT (12-78) U/L Alkaline Phosphatase (45-117) U/L Total Creatine Kinase (39-308) U/L Troponin I (0.02-0.05) ng/mL Total Protein (6.4-8.2) g/dL Albumin (3.4-5.0) g/dL Urine Color (Yellw/Straw) Urine Clarity (Clear) Urine pH (5.0-8.5) Ur Specific [place] (1.002-1.035) Urine Protein (Neg-Trace) mg/dL Urine Glucose (UA) (Negative) mg/dL Urine Ketones (Negative) mg/dL Urine Occult Blood (Negative) Urine Nitrate (Negative) Urine Bilirubin (Negative) Urine Urobilinogen (Less than 2) mg/dL Ur Leukocyte Esterase (Negative) Urine RBC (0-3) /hpf Urine WBC (0-5) /hpf Urine Mucus (Occasional) /lpf Micro UA Comment Urine Culture Comments Imaging Data Attestation: I personally reviewed and interpreted this imaging study as follows : Radiologist's impression: Chest CTA 03/20/18 10:11 CONCLUSION: 1. No evidence for pulmonary embolism. 2. Right apical nodules. 6 month follow-up CT chest recommended. Chest X-Ray 03/20/18 10:11 CONCLUSION: No acute cardiopulmonary disease. Discharge Plan Physicians Team ED Provider: Eusebia Barber Primary Care Provider: UNKNOWN, Rxs /Orders / Referrals /Forms Prescriptions: No Action quetiapine 25 mg Tablet 25 mg PO BID RF: 0 ondansetron HCl [Zofran] 4 mg Tablet 4 mg PO TID-QID MDD 16 PRN (Reason: nausea) RF: 0 prochlorperazine 25 mg Suppository 25 mg [place] Q12H MDD 25 PRN (Reason: Nausea And Vomiting) RF: 0 ibuprofen [Motrin IB] 200 mg Tablet 400 mg PO QID MDD 1600 PRN (Reason: Acute Pain) RF: 0 terazosin 10 mg Capsule 10 mg PO DAILY RF: 0 Discharge Interventions Interventions: Vital Signs Last Done: 03/20/18 10:05 Status ED Status: Admitted Observation Patient
--- NOTE | 2018-03-20 10:40 | XR ---
EXAM DATE: 03/20/2018 10:38 AM EDT AGE/SEX: 67 years / Male INDICATIONS: Chest pain. Patients states no chest complaints. CLINICAL DATA: This is the patient's initial encounter. Patient reports that signs and symptoms have been present for 1 day and indicates a pain score of 0/10. MEDICAL/SURGICAL HISTORY: . Tongue cancer. Pt. Is having chemo. . Infusaport. [place] [facility] [place]. . FINDINGS: A single AP view of the chest demonstrates the lungs to be symmetrically aerated without evidence of mass, infiltrate or effusion. The cardiomediastinal contours are unremarkable. Osseous structures a re intact. [id number] is in place via right internal jugular approach with its tip in the superio r vena cava. CONCLUSION: No acute cardiopulmonary disease. Electronically signed by: Gio Freeman MD 03/20/2018 10:39 AM EDT
[2018-03-20 11:01] LABS: Albumin 3.6 g/dL (3.4-5.0); Anion Gap 10 meq/L (5-15); Aspartate Aminotransferase 17 U/L (15-37); Blood Urea Nitrogen 10 mg/dL (7-18); Carbon Dioxide 26.5 meq/L (21.0-32.0); Chloride 96 meq/L (98-107); Glomerular Filtration Rate Greater Than 89 mL/min (>89); Glucose,Random 123 mg/dL (74-106); Potassium 3.6 meq/L (3.5-5.1); Sodium 132 meq/L (136-145)
[2018-03-20] MEDS ORDERED: Sod Chloride 0.9% Inj 1,000 ML IV.SIG ONE (11:03)
[2018-03-20 11:05] LABS: Alanine Aminotransferase 17 U/L (12-78); Alkaline Phosphatase 73 U/L (45-117); Total Protein 6.9 g/dL (6.4-8.2)
[2018-03-20 11:12] LABS: Creatine Kinase 82 U/L (39-308)
[2018-03-20 11:14] LABS: Bilirubin,Urine Negative (Negative); Clarity,Urine Hazy (Clear); Color,Urine Yellow (Yellw/Straw); Glucose,Urine (UA) Negative (Negative); Leukocyte Esterase,Urine Negative (Negative); Mucus,Urine Few /lpf (Occasional); Nitrite,Urine Negative (Negative); Specific Gravity,Urine 1.014 (1.002-1.035)
[2018-03-20 11:35] LABS: Baso % (Auto) 0.2 % (0.0-2.0); Eos % (Auto) 0.6 % (0.0-4.0); Hematocrit 36.2 % (39.0-51.0); Hemoglobin 12.4 gm/dL (13.0-17.0); Lymph # (Auto) 0.1 th/mm3 (1.0-4.8); Lymph % (Auto) 4.2 % (9.0-44.0); Mean Corpuscular HGB Conc 34.3 % (32.0-36.0); Mean Corpuscular Hemoglobin 32.4 pg (27.0-34.0); Mean Corpuscular Volume 94.5 fL (80.0-100.0); Mean Platelet Volume 8.2 fL (7.0-11.0); Mono # (Auto) 0.3 th/mm3 (0.0-0.9); Mono % (Auto) 8.7 % (0.0-8.0); Neut # (Auto) 2.6 th/mm3 (1.8-7.7); Neut % (Auto) 86.3 % (16.0-70.0); Platelet Count 90 th/mm3 (150-450); Red Blood Count 3.83 mil/mm3 (4.50-5.90); Red Cell Distribution Width 13.3 % (11.6-17.2)
[2018-03-20 11:45] LABS: Activated Partial Thrombo Time 24.6 sec (24.3-30.1); INR 1.1 Ratio
[2018-03-20 11:48] LABS: Prothrombin Time 11.4 sec (9.8-11.6)
--- NOTE | 2018-03-20 11:53 | CT ---
EXAM DATE: 03/20/2018 11:44 AM EDT AGE/SEX: 67 years / Male INDICATIONS: Hypotension today during radiation treatment. CLINICAL DATA: This is the patient's initial encounter. Patient reports that signs and symptoms have been present for 1 day and indicates a pain score of 0/10. MEDICAL/SURGICAL HISTORY: . Throat cancer, tongue cancer. None. RADIATION DOSE: 10.13 CTDI (mGy) COMPARISON: [facility], CHEST 1V SINGLE AP, 03/20/2018. . TECHNIQUE: Volumetric scanning was performed using a multi-row detector CT scanner during bolus infu jamey of 73 ml Omnipaque 350 (iohexol) nonionic water-soluble contrast as a single exam dose. The hannah a was post processed with a variety of visualization algorithms including full volume maximum intensi ty projection and sliding thin slab reformation. Using automated exposure control and adjustment of the mA and/or kV according to patient size, radiation dose was kept as low as reasonably achievable t o obtain optimal diagnostic quality images. DICOM format image data is available electronically for review and comparison. FINDINGS: There is no adenopathy. No pleural or pericardial effusions are seen. There is no evidence for pulmon roman embolism. There is a groundglass nodular focus at the right lung apex measuring 5.1 mm. Also note d on image 34 is a noncalcified 4.6 mm right upper lobe nodule. Hyperinflation is identified. CONCLUSION: 1. No evidence for pulmonary embolism. 2. Right apical nodules. 6 month follow-up CT chest recommended. Electronically signed by: Fer Vazquez MD 03/20/2018 11:52 AM EDT
[2018-03-20 12:08] LABS: Lymphocytes 4 % (9-44); Monocytes 7 % (0-8); Platelet Morphology Normal (Normal)
[2018-03-20] MEDS ORDERED: Iohexol 350 MG/ML 50 ML Vial (for Rad Diag) G-TUBE ONE (13:49)
--- NOTE | 2018-03-20 14:10 | P.HPIM ---
History of Present Illness Primary Care Physician: UNKNOWN History of Present Illness: This is a 67-year-old male with history of supraventricular tachycardia, depression, BPH, and recently diagnosed with tongue cancer in October 2017, currently undergoing chemotherapy and radiotherapy presenting to the hospital with chest pain. Patient is a poor historian. Per patient, he has been in morphine however during the weekend, he tapered himself off and since then has been having bilateral chest pain radiating to the neck area described as cramping, [id number]. Not associated with shortness of breath, dizziness , lightheadedness, palpitations but has been having nausea and has been vomiting in the last few days. Poor oral intake. His last chemotherapy was a week ago and radiotherapy was this morning. There is plan to get a PEG tube in the next few days. He went to his oncologist office today and it was noticed that his blood pressure was low and with a complaint of chest pain, the patient was sent to the hospital. Of note, patient was admitted in the hospital a month ago for atrial tachycardia , was seen by Dr. oakley. Family history: Unremarkable, no history of throat cancer. Review of Systems All other pertinent systems were reviewed and are negative. PMFSH - History History Provided By: Patient - Medical History Medical History: Medical History (Last Updated 03/20/18 @ 14:09 by Donita Koenig MD) Lower extremity surgery planned Prostate disorder Schizophrenia Throat cancer - Surgical History Surgical History: Surgical History (Last Updated 03/20/18 @ 14:09 by Donita Koenig MD) History of throat surgery - Tobacco History Second Hand Smoke Exposure: No Tobacco Use In Past 30 Days: No Smoking Status: Former smoker Tobacco Type: Cigarettes - Alcohol History How Often Do You Have a Drink Containing Alcohol: Never - Substance Use History Substance History: Active Abuse - Substance Use Type Marijuana Status: Active Route Used: Inhalation Reason for Use: Feels Good - Travel History Recent Travel in the [place] Within the Last 8 Weeks: No Recent Travel Out of the Country Within the Last 8 Weeks: No - Immunization History Tetanus Immunization: Unsure Hx Influenza Vaccine This Season: Yes Medications and Allergies Active Medications: Active Medications Sodium Chloride (Ns Flush) 2 ml IV.FLUSH UNSCH PRN PRN Reason: FLUSH AFTER USING IV ACCESS Allergies Allergy/AdvReac Type Severity Reaction Status Date / Time penicillin G Allergy Unknown Rash Verified 02/23/18 07:32 tramadol Allergy Headache Verified 02/23/18 07:32 Opioids-Meperidine and AdvReac Headache Verified 02/23/18 07:32 Related Home Medications Medication Instructions Recorded Confirmed Type ibuprofen [Motrin IB] 400 mg PO QID PRN MDD 1600 02/23/18 03/20/18 History ondansetron HCl [Zofran] 4 mg PO TID-QID PRN MDD 16 02/23/18 03/20/18 History prochlorperazine 25 mg CO Q12H PRN MDD 25 02/23/18 03/20/18 History quetiapine 25 mg PO BID 02/23/18 03/20/18 History terazosin 10 mg PO DAILY 02/23/18 03/20/18 History Exam Vital signs: Vital Signs 03/20/18 09:56 03/20/18 10:05 03/20/18 10:12 Temperature 98.9 F 98.9 F Pulse Rate 110 H 90 86 Respiratory Rate 16 18 18 Blood Pressure 99/62 L 146/87 H 146/87 H Pulse Oximetry 98 97 99 03/20/18 12:35 Temperature Pulse Rate 88 Respiratory Rate 18 Blood Pressure 122/59 L Pulse Oximetry 99 Intake & Output 03/19/18 03/20/18 03/20/18 18:59 06:59 18:59 Weight 69.853 kg Narrative: Not in distress PERRL, pink conjunctiva without injection, anicteric Nose without bleeding, airway patent, oropharynx clear Supple neck, (+) hyperpigmentation likely from radiation Normal rate and regular rhythm, no murmurs gallops or rubs appreciated. Clear to auscultation and symmetric bilaterally, normal respiratory effort. Hyperpigmentation upper chest likely from radiation. Normal bowel sounds, soft, non-tender, nondistended, no guarding. Extremities without clubbing, cyanosis, or edema. No rash of generalized distribution. Skin is warm and dry. AAO x3, no cranial nerve deficits, moves all 4 extremities, no focal neurologic deficits. Mild dysarthria. Results - Labs CBC & Chem 7: 03/20/18 11:14 03/20/18 10:10 Labs: Short CBC 03/20/18 Range/Units 11:14 WBC 3.0 L (4.0-11.0) th/mm3 Hgb 12.4 L (13.0-17.0) gm/dL Hct 36.2 L (39.0-51.0) % Plt Count 90 L (150-450) th/mm3 BMP 03/20/18 10:10 Sodium 132 L Potassium 3.6 Chloride 96 L Carbon Dioxide 26.5 BUN 10 Creatinine 0.69 Calcium 9.0 Cardiac Enzymes 03/20/18 Range/Units 10:10 Total Creatine Kinase 82 (39-308) U/L Troponin I Less than 0.02 L (0.02-0.05) ng/mL Liver Function 03/20/18 Range/Units 10:10 Total Bilirubin 0.6 (0.2-1.0) mg/dL AST 17 (15-37) U/L ALT 17 (12-78) U/L Alkaline Phosphatase 73 (45-117) U/L Albumin 3.6 (3.4-5.0) g/dL Urine 03/20/18 Range/Units 10:38 Urine Color Yellow (Yellw/Straw) Urine Clarity Hazy H (Clear) Urine pH 7.0 (5.0-8.5) Ur Specific [place] 1.014 (1.002-1.035) Urine Protein Negative (Neg-Trace) mg/dL Urine Glucose (UA) Negative (Negative) mg/dL - Imaging Impressions Chest CTA 03/20/18 10:11 CONCLUSION: 1. No evidence for pulmonary embolism. 2. Right apical nodules. 6 month follow-up CT chest recommended. Chest X-Ray 03/20/18 10:11 CONCLUSION: No acute cardiopulmonary disease. Caprini VTE Risk Assessment Caprini VTE Risk Assessment: Moderate/High Risk (score >= 2) Caprini Risk Assessment Model: Point Value = 1 Point Value = 2 Point Value = 3 Point Value = 5 Age 41-60 Minor surgery BMI > 25 kg/m2 Swollen legs Varicose veins or History of unexplained or recurrent spontaneous Oral contraceptives or hormone replacement Sepsis (< 1 month) Serious lung disease, including pneumonia (< 1 month) Abnormal pulmonary function Acute myocardial infarction Congestive heart failure (< 1 month) History of inflammatory bowel disease Medical patient at bed rest Age 61-74 Arthroscopic surgery Major open surgery (> 45 min) Laparoscopic surgery (> 45 min) Malignancy Confined to bed (> 72 hours) Immobilizing plaster cast Central venous access Age >= 75 History of VTE Family history of VTE Factor V Leiden Prothrombin [id number] Lupus anticoagulant Anticardiolipin antibodies Elevated serum homocysteine Heparin-induced thrombocytopenia Other congenital or acquired thrombophilia Stroke (< 1 month) Elective arthroplasty Hip, pelvis, or leg fracture Acute spinal cord injury (< 1 month) Prophylaxis Regimen: Total Risk Factor Score Risk Level Prophylaxis Regimen 0-1 Low Early ambulation 2 Moderate Order ONE of the following: *Sequential Compression Device (SCD) *Heparin 5000 units SQ BID 3-4 Higher Order ONE of the following medications: *Heparin 5000 units SQ TID *Enoxaparin/Lovenox 40 mg SQ daily (WT < 150 kg, CrCl > 30 mL/min) *Enoxaparin/Lovenox 30 mg SQ daily (WT < 150 kg, CrCl > 10-29 mL/min) *Enoxaparin/Lovenox 30 mg SQ BID (WT < 150 kg, CrCl > 30 mL/min) AND/OR *Sequential Compression Device (SCD) 5 or more Highest Order ONE of the following medications: *Heparin 5000 units SQ TID (Preferred with Epidurals) *Enoxaparin/Lovenox 40 mg SQ daily (WT < 150 kg, CrCl > 30 mL/min) *Enoxaparin/Lovenox 30 mg SQ daily (WT < 150 kg, CrCl > 10-29 mL/min) *Enoxaparin/Lovenox 30 mg SQ BID (WT < 150 kg, CrCl > 30 mL/min) AND *Sequential Compression Device (SCD) Assessment and Plan - Plan This is a 67-year-old male recently diagnosed throat cancer on chemotherapy and radiotherapy sent from his oncologist office for hypotension chest pain Chest pain-likely second to pleurisy from radiotherapy, rule out cardiac causes. Check serial troponin EKG. First troponin is negative, EKG showed sinus rhythm, normal axis, no ischemic changes.? Second-degree AV block, will recheck. Pain control. Tongue cancer-pain may be related to radiotherapy to the chest, consult patient 's oncologist. He is actively undergoing chemotherapy and radiotherapy. Allegedly, there is a plan to place a PEG tube in the next few weeks, swallow evaluation. Hypotension-resolved?, Start normal saline. Hyponatremia-likely secondary to hypovolemia from poor oral intake, normal saline as above Nausea/vomiting-could be secondary to chemotherapy far as estrogen therapy, symptomatic management with Zofran, fluids as above. DVT prophylaxis: Lovenox
[2018-03-20] MEDS ORDERED: Bisacodyl 10 MG Supp RECTAL PRN (15:06)
[2018-03-20] MEDS ORDERED: Ibuprofen 200 MG Tablet PO PRN (15:06)
[2018-03-20] MEDS ORDERED: Naloxone Inj 0.4 MG/ML Vial IV.PUSH PRN (15:08)
[2018-03-20] MEDS ORDERED: Morphine Inj 4 MG/ML Vial IV.PUSH PRN (15:08)
[2018-03-20] MEDS: Enoxaparin Inj 40 MG/0.4 ML Syringe SQ SCH (16:17)
[2018-03-20] MEDS: Sod Chloride 0.9% Inj 1,000 ML IV.CONT SCH (16:29)
--- NOTE | 2018-03-20 18:53 | ECG ---
Date Performed: 03/20/2018 Time Performed: 10:05:22 PTAGE: 67 years EKG: Sinus Arrhythmia ABNORMAL ECG PREVIOUS TRACING : 02/08/2018 21.49 Compared to prior tracing, P-waves are notable bigger. Cons ider Bi-atrial enlargement DOCTOR: Joshua Pedroza Interpretating Date/Time 03/20/2018 18:51:39
[2018-03-20] MEDS: Senna/Docusate Sodium 8.6/50 MG Tablet PO SCH (19:59)
[2018-03-20] MEDS: QUEtiapine 25 MG Tablet PO SCH (19:59)
[2018-03-20] MEDS ORDERED: Granisetron 1 MG/ML Vial IV.PUSH SCH (20:00)
--- NOTE | 2018-03-20 20:09 | MB ---
cc: Lincoln Saha MD DATE: 03/20/2018 ATTENDING PHYSICIAN: Dr. Koenig. REASON FOR CONSULTATION: Oncology concerned with the patient with tongue cancer on receiving chemotherapy and radiation, admitted with chest pain. HISTORY OF PRESENT ILLNESS: The patient is a 67-year-old male recently diagnosed with a tongue squamous cell carcinoma, receiving radiation and chemotherapy, presented to the hospital with hypotension and chest pain. He was found to have right tongue squamous cell carcinoma earlier this year. He underwent resection in December. He was then recommended to receive adjuvant radiation and chemotherapy. He was receiving weekly cisplatin. He had a third dose last week. Yesterday, when he came to the clinic for chemotherapy, he was complaining of chest pain. Chemotherapy was held. He went to see Dr. Menendez and reportedly EKG was unremarkable. This morning, he went for radiation. After the radiation, he found to have hypotension. He was then directed to the emergency room and subsequently admitted. The patient stated he decided to stop morphine over the weekend. He stated that he has not been feeling well in the last 3 days. He was having nausea, vomiting. He did not drink much fluid. He denies any fever. He has some chills. He denies any shortness of breath or cough. He denies any diarrhea, abdominal pain. When he came in, he was found to be dehydrated. When I saw him, he was feeling better after the hydration. He stated that the nausea and vomiting has resolved. His chest pain also has improved. He described the chest pain is bilateral crampy pain. He described it as "pleurisy". He denies any chest pressure. He denies any palpitation. PAST MEDICAL HISTORY: 1. Tongue squamous cell carcinoma. 2. Kidney stone. 3. Benign prostatic hypertrophy. 4. Depression. 5. Supraventricular tachycardia. PAST SURGICAL HISTORY: 1. Biopsy of tongue. 2. Excision of the tongue lesion 3. Teeth extraction. 4. Port placement. FAMILY HISTORY: Father of cancer. One son and daughter, both healthy. SOCIAL HISTORY: Smoker, half a pack a day for 50 years, just recently quit. Quit alcohol about 4 years ago. ALLERGIES: 1. PENICILLIN. 2. TRAMADOL. 3. MEPERIDINE. MEDICATIONS: 1. Lovenox. 2. Seroquel. 3. Bella-Colace. 4. Hytrin. REVIEW OF SYSTEMS: CONSTITUTIONAL: As above. EYES: Negative. ENT: As above. CARDIOVASCULAR: As above. RESPIRATORY: As above. GASTROINTESTINAL: As above. GENITOURINARY: Negative. MUSCULOSKELETAL: Negative. HEMATOLOGIC: Negative. ENDOCRINE: Negative. HEMATOLOGY: Negative. PSYCHIATRIC: Negative. NEUROLOGIC: Negative. PHYSICAL EXAMINATION: VITAL SIGNS: Temperature 98.6, blood pressure 149/72, O2 saturation 99% on room air. GENERAL: He is alert and oriented x3, in no acute distress. Weak. HEENT: Atraumatic, normocephalic. Pupils are equal, round, reactive to light. Oropharynx, dry mucosa. No thrush noted. NECK: No thyromegaly. No palpable mass. LYMPHATIC: No palpable cervical, clavicular, axillary or inguinal lymph nodes. CARDIOVASCULAR: Regular S1, S2. No murmur. LUNGS: Clear to auscultation anteriorly. ABDOMEN: Soft, nontender. Cannot palpate liver or spleen. EXTREMITIES: No cyanosis, clubbing, or edema. No calf tenderness. SKIN: Decreased skin turgor. NEUROLOGIC: Nonfocal. LABORATORY DATA: WBC 3, hemoglobin 12.4, platelet count 90. Creatinine 0.69. Troponin less than 0.02. ASSESSMENT AND PLAN: 1. Squamous cell carcinoma of the tongue. He underwent resection in 12/2017. Pathology showed invasive poorly differentiated squamous cell carcinoma, pathologic stage [id number]. No distant metastasis noted. He was evaluated at [facility] and was offered radical resection versus concurrent chemotherapy and radiation. The patient decided to have chemotherapy and radiation. He just completed 3 weekly cycle of cisplatin. His last chemotherapy was a week ago. He was supposed to receive another cycle yesterday, but was held due to his chest pain and symptoms. He is still on radiation. There is no significant mucositis or lesion noted in the mouth. Cannot palpate the neck mass. We will resume his chemotherapy next week when he feels stronger. 2. Dehydration. He has not been drinking much fluid in the last 3 days. He also had nausea, vomiting after he stopped morphine. He may have some withdrawal effect. He has responded well to the IV hydration. 3. Chest pain. He described bilateral chest pain. Troponin is negative. He was seen by Dr. Menendez yesterday and reported EKG was unremarkable. He is still wearing the Holter monitor. 4. Nutrition. He has mild dysphagia due to radiation and chemotherapy. He was supposed to have PEG tube placed this week. We will re-consult radiology for PEG tube placement when he is a little stronger. 5. Benign prostatic hypertrophy. 6. Depression, on Seroquel. PLAN: 1. Hold chemotherapy this week. 2. Continue IV fluid hydration. 3. We will reconsult radiology for PEG tube placement once the patient is stable. 4. Monitor CBC. 5. Deep venous thrombosis prophylaxis with Lovenox. Thank you Dr. Koenig for asking me to see this patient. MD LAURI Grant/elder/charley , 06:30 PM , 06:49 PM [email or web address]
[2018-03-20] MEDS: Temazepam 15 MG Capsule PO PRN (21:53)
[2018-03-21] MEDS: Sod Chloride 0.9% Inj 1,000 ML IV.CONT SCH ×2 (03:15→12:44)
[2018-03-21 04:12] LABS: Baso % (Auto) 0.2 % (0.0-2.0); Eos % (Auto) 1.3 % (0.0-4.0); Hematocrit 29.8 % (39.0-51.0); Hemoglobin 10.6 gm/dL (13.0-17.0); Lymph # (Auto) 0.2 th/mm3 (1.0-4.8); Lymph % (Auto) 7.7 % (9.0-44.0); Mean Corpuscular HGB Conc 35.6 % (32.0-36.0); Mean Corpuscular Hemoglobin 32.9 pg (27.0-34.0); Mean Corpuscular Volume 92.3 fL (80.0-100.0); Mean Platelet Volume 8.4 fL (7.0-11.0); Mono # (Auto) 0.3 th/mm3 (0.0-0.9); Mono % (Auto) 10.1 % (0.0-8.0); Neut # (Auto) 2.5 th/mm3 (1.8-7.7); Neut % (Auto) 80.7 % (16.0-70.0); Platelet Count 90 th/mm3 (150-450); Red Blood Count 3.23 mil/mm3 (4.50-5.90); Red Cell Distribution Width 13.1 % (11.6-17.2); White Blood Count 3.1 th/mm3 (4.0-11.0)
[2018-03-21 04:54] LABS: Acanthocytes Occ
[2018-03-21 04:55] LABS: Ovalocytes 1+; Platelet Morphology Normal (Normal)
--- NOTE | 2018-03-21 10:17 | ECG ---
Date Performed: 03/20/2018 Time Performed: 16:32:50 PTAGE: 67 years EKG: Sinus rhythm Normal ECG Since the PREVIOUS TRACING , no significant change noted PREVIOUS TRACIN03/20/2018 10.05 DOCTOR: Sandy Garcia Interpretating Date/Time 03/21/2018 10:16:47
--- NOTE | 2018-03-21 10:17 | ECG ---
Date Performed: 03/20/2018 Time Performed: 21:14:03 PTAGE: 67 years EKG: Sinus rhythm NORMAL ECG Since the PREVIOUS TRACING , no significant change noted PREVIOUS TRACIN03/20/2018 16.32 DOCTOR: Sandy Garcia Interpretating Date/Time 03/21/2018 10:16:36
[2018-03-21] MEDS: QUEtiapine 25 MG Tablet PO SCH ×2 (10:36→20:52)
[2018-03-21] MEDS: Acetaminophen 325 MG Tablet PO PRN ×3 (10:39→20:12)
--- NOTE | 2018-03-21 10:43 | P.PNONC ---
Subjective Interval history: Afebrile Patient reports that he was able to drink 2 bowls of broth and keep it down Nausea and vomiting much improved Denies shortness of breath or chest pain Objective Vital Signs/Intake & Output: Vital Signs 03/20/18 12:35 03/20/18 16:00 03/20/18 16:05 Temperature 98.6 F Pulse Rate 88 62 63 Respiratory Rate 18 18 Blood Pressure 122/59 L 149/72 H Pulse Oximetry 99 99 03/20/18 20:00 03/20/18 21:23 03/21/18 00:00 Temperature 98.3 F 98.1 F Pulse Rate 58 L 56 L 67 Respiratory Rate 18 17 Blood Pressure 150/78 H 154/78 H Pulse Oximetry 96 98 03/21/18 00:04 03/21/18 04:00 03/21/18 07:55 Temperature 98.4 F 98.3 F Pulse Rate 54 L 53 L 99 H Respiratory Rate 18 18 Blood Pressure 158/84 H 108/75 Pulse Oximetry 98 97 03/21/18 08:00 03/21/18 09:00 Temperature Pulse Rate 98 H Respiratory Rate 18 18 Blood Pressure Pulse Oximetry Intake & Output 03/20/18 03/21/18 03/21/18 18:59 06:59 18:59 Intake Total 0 / 0 1000 / 1000 Output Total 0 / 0 600 / 600 Balance 0 / 0 400 / 400 Weight 154 lb 153 lb 10.595 oz Intake: IV 1000 / 1000 NS Inj 1,000 ML @ 100 mls/hr IV 1000 / 1000 .CONT .Q10H [facility] Rx#:[id number] Oral 0 / 0 Output: Urine 0 / 0 600 / 600 Other: Date of Last Bowel Movement 03/20/18 03/20/18 03/20/18 Result Diagrams: 03/21/18 03:28 03/20/18 10:10 Laboratory Results: Laboratory Results - last 24 hr 03/20/18 03/20/18 03/20/18 10:10 10:38 10:38 WBC RBC Hgb Hct MCV MCH MCHC RDW Plt Count MPV Prelim Diff (Auto) Neut % (Auto) Lymph % (Auto) Wise % (Auto) Eos % (Auto) Baso % (Auto) Neut # (Auto) Lymph # (Auto) Wise # (Auto) Eos # (Auto) Baso # (Auto) WBC Differential Diff Scan Seg Neuts % (Manual) Band Neuts % (Manual) Lymphocytes % (Manual) Monocytes % (Manual) Abs Neuts (Manual) Differential Comment Platelet Estimate Platelet Morphology Ovalocytes Acanthocytes (Spur) PT INR APTT Sodium 132 L Potassium 3.6 Chloride 96 L Carbon Dioxide 26.5 Anion Gap 10 BUN 10 Creatinine 0.69 Estimated GFR Greater than 89 Random Glucose 123 H Lactic Acid 1.2 Calcium 9.0 Total Bilirubin 0.6 AST 17 ALT 17 Alkaline Phosphatase 73 Total Creatine Kinase 82 Troponin I Less than 0.02 L Total Protein 6.9 Albumin 3.6 Urine Color Yellow Urine Clarity Hazy H Urine pH 7.0 Ur Specific [place] 1.014 Urine Protein Negative Urine Glucose (UA) Negative Urine Ketones 20 Urine Occult Blood Negative Urine Nitrate Negative Urine Bilirubin Negative Urine Urobilinogen 2.0 H Ur Leukocyte Esterase Negative Urine RBC 2 Urine WBC Less than 1 Urine Mucus Few H Micro UA Comment Culture not ind Urine Culture Comments Culture not ind 03/20/18 03/20/18 03/20/18 11:14 11:14 21:07 WBC 3.0 L RBC 3.83 L Hgb 12.4 L Hct 36.2 L MCV 94.5 MCH 32.4 MCHC 34.3 RDW 13.3 Plt Count 90 L MPV 8.2 Prelim Diff (Auto) Slide review pending Neut % (Auto) 86.3 H Lymph % (Auto) 4.2 L Wise % (Auto) 8.7 H Eos % (Auto) 0.6 Baso % (Auto) 0.2 Neut # (Auto) 2.6 Lymph # (Auto) 0.1 L Wise # (Auto) 0.3 Eos # (Auto) 0.0 Baso # (Auto) 0.0 WBC Differential Manual diff final Diff Scan Seg Neuts % (Manual) 84 H Band Neuts % (Manual) 5 Lymphocytes % (Manual) 4 L Monocytes % (Manual) 7 Abs Neuts (Manual) 2.7 Differential Comment . Platelet Estimate Low L Platelet Morphology Normal Ovalocytes Acanthocytes (Spur) PT 11.4 INR 1.1 APTT 24.6 Sodium Potassium Chloride Carbon Dioxide Anion Gap BUN Creatinine Estimated GFR Random Glucose Lactic Acid Calcium Total Bilirubin AST ALT Alkaline Phosphatase Total Creatine Kinase Troponin I 0.03 Total Protein Albumin Urine Color Urine Clarity Urine pH Ur Specific [place] Urine Protein Urine Glucose (UA) Urine Ketones Urine Occult Blood Urine Nitrate Urine Bilirubin Urine Urobilinogen Ur Leukocyte Esterase Urine RBC Urine WBC Urine Mucus Micro UA Comment Urine Culture Comments 03/21/18 03/21/18 03:28 03:28 WBC 3.1 L RBC 3.23 L Hgb 10.6 L Hct 29.8 L MCV 92.3 MCH 32.9 MCHC 35.6 RDW 13.1 Plt Count 90 L MPV 8.4 Prelim Diff (Auto) Slide review pending Neut % (Auto) 80.7 H Lymph % (Auto) 7.7 L Wise % (Auto) 10.1 H Eos % (Auto) 1.3 Baso % (Auto) 0.2 Neut # (Auto) 2.5 Lymph # (Auto) 0.2 L Wise # (Auto) 0.3 Eos # (Auto) 0.0 Baso # (Auto) 0.0 WBC Differential . Diff Scan Auto diff confirmed Seg Neuts % (Manual) Band Neuts % (Manual) Lymphocytes % (Manual) Monocytes % (Manual) Abs Neuts (Manual) Differential Comment . Platelet Estimate Low L Platelet Morphology Normal Ovalocytes 1+ H Acanthocytes (Spur) Occ H PT INR APTT Sodium Potassium Chloride Carbon Dioxide Anion Gap BUN Creatinine Estimated GFR Random Glucose Lactic Acid Calcium Total Bilirubin AST ALT Alkaline Phosphatase Total Creatine Kinase Troponin I 0.03 Total Protein Albumin Urine Color Urine Clarity Urine pH Ur Specific [place] Urine Protein Urine Glucose (UA) Urine Ketones Urine Occult Blood Urine Nitrate Urine Bilirubin Urine Urobilinogen Ur Leukocyte Esterase Urine RBC Urine WBC Urine Mucus Micro UA Comment Urine Culture Comments Imaging Studies: Impressions Chest CTA 03/20/18 10:11 CONCLUSION: 1. No evidence for pulmonary embolism. 2. Right apical nodules. 6 month follow-up CT chest recommended. Chest X-Ray 03/20/18 10:11 CONCLUSION: No acute cardiopulmonary disease. Medications: Active Medications Generic Name Dose Route Start Last Admin Trade Name Freq PRN Reason Stop Dose Admin Enoxaparin Sodium 40 mg 03/20/18 16:00 03/20/18 16:17 Lovenox Inj SQ Not Given Q24H JEREMIE Granisetron HCl 1 mg 03/20/18 20:00 03/21/18 00:33 Kytril Inj IV.PUSH 03/21/18 19:59 1 mg UNSCH X1 JEREMIE Administration Sodium Chloride 1,000 mls @ 100 mls/hr 03/20/18 15:13 03/21/18 03:15 Ns Inj IV.CONT 100 mls/hr .Q10H JEREMIE Administration Ondansetron HCl 4 mg 03/20/18 15:30 03/20/18 21:53 Zofran Odt PO 4 mg Q6H PRN Administration NAUSEA OR VOMITING Prochlorperazine Edisylate 10 mg 03/20/18 19:47 03/21/18 03:26 Compazine Inj IV.PUSH 10 mg Q6H PRN Administration NAUSEA/VOMITING Quetiapine Fumarate 25 mg 03/20/18 21:00 03/20/18 19:59 Seroquel PO 25 mg BID JEREMIE Administration Senna/Docusate Sodium 1 tab 03/20/18 21:00 03/20/18 19:59 Bella-Colace PO 1 tab BID JEREMIE Administration Temazepam 15 mg 03/20/18 15:06 03/20/18 21:53 Restoril PO 15 mg HS PRN Administration INSOMNIA Objective Remarks: GENERAL: Chronically ill-appearing male sitting on side of bed in no obvious distress SKIN: Warm and dry. HEAD: Normocephalic. EYES: No scleral icterus. No injection or drainage. NECK: Supple, trachea midline. No JVD or lymphadenopathy. CARDIOVASCULAR: Regular rate and rhythm without murmurs. Slightly tachycardic. RESPIRATORY: Breath sounds equal bilaterally. No accessory muscle use. GASTROINTESTINAL: Abdomen soft, non-tender, nondistended. EXTREMITIES: No cyanosis, or edema. MUSCULOSKELETAL: +mild muscle wasting NEUROLOGICAL: Slight dysarthria. Follows commands. Moving all extremities. 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 Chemotherapy was held. The patient subsequently followed up with his service assistant and had a EKG that was unremarkable. He developed increased nausea with vomiting and presented to the emergency room. 1. Pancytopenia likely due to recent chemotherapy which was last given approximately 1 week ago. Continue to monitor counts. 2. The patient was scheduled for outpatient PEG tube placement for nutritional support prior to hospitalization. We will facilitate this while inpatient. 3. Continue supportive care. - Attending Statement The exam, history, and the medical decision-making described in the above note were completed with the assistance of the mid-level provider. I reviewed and agree with the findings presented. I attest that I had a [id number] encounter with the patient on the same day, and personally performed and documented my assessment and findings in the medical record. Patient denies any chest pain. His nausea and vomiting has improved. He is feeling stronger. He has mild pancytopenia due to chemotherapy but stable. Will reconsult interventional radiology for PEG tube placement.
--- NOTE | 2018-03-21 10:58 | P.PNIM ---
Subjective Interval history: This is a 67-year-old male with history of supraventricular tachycardia, depression, BPH, and recently diagnosed with tongue cancer in October 2017, currently undergoing chemotherapy and radiotherapy presenting to the hospital with chest pain. Patient is a poor historian. Per patient, he has been in morphine however during the weekend, he tapered himself off and since then has been having bilateral chest pain radiating to the neck area described as cramping, [id number]. Not associated with shortness of breath, dizziness , lightheadedness, palpitations but has been having nausea and has been vomiting in the last few days. Poor oral intake. His last chemotherapy was a week ago and radiotherapy was this morning. There is plan to get a PEG tube in the next few days. He went to his oncologist office today and it was noticed that his blood pressure was low and with a complaint of chest pain, the patient was sent to the hospital. Of note, patient was admitted in the hospital a month ago for atrial tachycardia , was seen by Dr. oakley. Family history: Unremarkable, no history of throat cancer. 8-1 HAS SOME HEADACHES WILL ONLY TAKE TYLENOL -DOES NOT WANT ANY NARCOTICS DW RN AND PT AND ONCOLOGY AND CM HOPEFULLY PEG PLACEMENT TOMORROW AM LABS PT AND OT Physical Exam Vital signs: Vital Signs 03/20/18 12:35 03/20/18 16:00 03/20/18 16:05 Temperature 98.6 F Pulse Rate 88 62 63 Respiratory Rate 18 18 Blood Pressure 122/59 L 149/72 H Pulse Oximetry 99 99 03/20/18 20:00 03/20/18 21:23 03/21/18 00:00 Temperature 98.3 F 98.1 F Pulse Rate 58 L 56 L 67 Respiratory Rate 18 17 Blood Pressure 150/78 H 154/78 H Pulse Oximetry 96 98 03/21/18 00:04 03/21/18 04:00 03/21/18 07:55 Temperature 98.4 F 98.3 F Pulse Rate 54 L 53 L 99 H Respiratory Rate 18 18 Blood Pressure 158/84 H 108/75 Pulse Oximetry 98 97 03/21/18 08:00 03/21/18 09:00 Temperature Pulse Rate 98 H Respiratory Rate 18 18 Blood Pressure Pulse Oximetry Intake & Output 03/20/18 03/21/18 03/21/18 18:59 06:59 18:59 Intake Total 0 / 0 1000 / 1000 Output Total 0 / 0 600 / 600 Balance 0 / 0 400 / 400 Weight 69.853 kg 69.7 kg Intake: IV 1000 / 1000 NS Inj 1,000 ML @ 100 mls/hr IV 1000 / 1000 .CONT .Q10H JEREMIE Rx#:[id number] Oral 0 / 0 Output: Urine 0 / 0 600 / 600 Other: Date of Last Bowel Movement 03/20/18 03/20/18 03/20/18 Narrative: Not in distress -quite thin appearing male actually somewhat cachectic PERRL, pink conjunctiva without injection, anicteric Nose without bleeding, airway patent, oropharynx clear Supple neck, (+) hyperpigmentation likely from radiation- tongue has been resected on the right side Normal rate and regular rhythm, no murmurs gallops or rubs appreciated. Clear to auscultation and symmetric bilaterally, normal respiratory effort. Hyperpigmentation upper chest likely from radiation. Normal bowel sounds, soft, non-tender, nondistended, no guarding. Extremities without clubbing, cyanosis, or edema. No rash of generalized distribution. Skin is warm and dry. AAO x3, no cranial nerve deficits, moves all 4 extremities, no focal neurologic deficits. Mild dysarthria. Results - Labs CBC & Chem 7: 03/21/18 03:28 03/20/18 10:10 Laboratory Results - last 24 hr 03/20/18 03/20/18 03/20/18 10:10 10:38 10:38 WBC RBC Hgb Hct MCV MCH MCHC RDW Plt Count MPV Prelim Diff (Auto) Neut % (Auto) Lymph % (Auto) [place] % (Auto) Eos % (Auto) Baso % (Auto) Neut # (Auto) Lymph # (Auto) [place] # (Auto) Eos # (Auto) Baso # (Auto) WBC Differential Diff Scan Seg Neuts % (Manual) Band Neuts % (Manual) Lymphocytes % (Manual) Monocytes % (Manual) Abs Neuts (Manual) Differential Comment Platelet Estimate Platelet Morphology Ovalocytes Acanthocytes (Spur) PT INR APTT Sodium 132 L Potassium 3.6 Chloride 96 L Carbon Dioxide 26.5 Anion Gap 10 BUN 10 Creatinine 0.69 Estimated GFR Greater than 89 Random Glucose 123 H Lactic Acid 1.2 Calcium 9.0 Total Bilirubin 0.6 AST 17 ALT 17 Alkaline Phosphatase 73 Total Creatine Kinase 82 Troponin I Less than 0.02 L Total Protein 6.9 Albumin 3.6 Urine Color Yellow Urine Clarity Hazy H Urine pH 7.0 Ur Specific [place] 1.014 Urine Protein Negative Urine Glucose (UA) Negative Urine Ketones 20 Urine Occult Blood Negative Urine Nitrate Negative Urine Bilirubin Negative Urine Urobilinogen 2.0 H Ur Leukocyte Esterase Negative Urine RBC 2 Urine WBC Less than 1 Urine Mucus Few H Micro UA Comment Culture not ind Urine Culture Comments Culture not ind 03/20/18 03/20/18 03/20/18 11:14 11:14 21:07 WBC 3.0 L RBC 3.83 L Hgb 12.4 L Hct 36.2 L MCV 94.5 MCH 32.4 MCHC 34.3 RDW 13.3 Plt Count 90 L MPV 8.2 Prelim Diff (Auto) Slide review pending Neut % (Auto) 86.3 H Lymph % (Auto) 4.2 L [place] % (Auto) 8.7 H Eos % (Auto) 0.6 Baso % (Auto) 0.2 Neut # (Auto) 2.6 Lymph # (Auto) 0.1 L [place] # (Auto) 0.3 Eos # (Auto) 0.0 Baso # (Auto) 0.0 WBC Differential Manual diff final Diff Scan Seg Neuts % (Manual) 84 H Band Neuts % (Manual) 5 Lymphocytes % (Manual) 4 L Monocytes % (Manual) 7 Abs Neuts (Manual) 2.7 Differential Comment . Platelet Estimate Low L Platelet Morphology Normal Ovalocytes Acanthocytes (Spur) PT 11.4 INR 1.1 APTT 24.6 Sodium Potassium Chloride Carbon Dioxide Anion Gap BUN Creatinine Estimated GFR Random Glucose Lactic Acid Calcium Total Bilirubin AST ALT Alkaline Phosphatase Total Creatine Kinase Troponin I 0.03 Total Protein Albumin Urine Color Urine Clarity Urine pH Ur Specific [place] Urine Protein Urine Glucose (UA) Urine Ketones Urine Occult Blood Urine Nitrate Urine Bilirubin Urine Urobilinogen Ur Leukocyte Esterase Urine RBC Urine WBC Urine Mucus Micro UA Comment Urine Culture Comments 03/21/18 03/21/18 03:28 03:28 WBC 3.1 L RBC 3.23 L Hgb 10.6 L Hct 29.8 L MCV 92.3 MCH 32.9 MCHC 35.6 RDW 13.1 Plt Count 90 L MPV 8.4 Prelim Diff (Auto) Slide review pending Neut % (Auto) 80.7 H Lymph % (Auto) 7.7 L [place] % (Auto) 10.1 H Eos % (Auto) 1.3 Baso % (Auto) 0.2 Neut # (Auto) 2.5 Lymph # (Auto) 0.2 L [place] # (Auto) 0.3 Eos # (Auto) 0.0 Baso # (Auto) 0.0 WBC Differential . Diff Scan Auto diff confirmed Seg Neuts % (Manual) Band Neuts % (Manual) Lymphocytes % (Manual) Monocytes % (Manual) Abs Neuts (Manual) Differential Comment . Platelet Estimate Low L Platelet Morphology Normal Ovalocytes 1+ H Acanthocytes (Spur) Occ H PT INR APTT Sodium Potassium Chloride Carbon Dioxide Anion Gap BUN Creatinine Estimated GFR Random Glucose Lactic Acid Calcium Total Bilirubin AST ALT Alkaline Phosphatase Total Creatine Kinase Troponin I 0.03 Total Protein Albumin Urine Color Urine Clarity Urine pH Ur Specific [place] Urine Protein Urine Glucose (UA) Urine Ketones Urine Occult Blood Urine Nitrate Urine Bilirubin Urine Urobilinogen Ur Leukocyte Esterase Urine RBC Urine WBC Urine Mucus Micro UA Comment Urine Culture Comments - Imaging Impressions Chest CTA 03/20/18 10:11 CONCLUSION: 1. No evidence for pulmonary embolism. 2. Right apical nodules. 6 month follow-up CT chest recommended. Assessment and Plan - Plan This is a 67-year-old male recently diagnosed throat cancer on chemotherapy and radiotherapy sent from his oncologist office for hypotension chest pain Chest pain-likely second to pleurisy from radiotherapy, rule out cardiac causes. Check serial troponin EKG. First troponin is negative, EKG showed sinus rhythm, normal axis, no ischemic changes.? Second-degree AV block, will recheck. Pain control. Tongue cancer-pain may be related to radiotherapy to the chest, consult patient 's oncologist. He is actively undergoing chemotherapy and radiotherapy. Allegedly, there is a plan to place a PEG tube in the next few weeks, swallow evaluation. Hypotension-resolved?, Start normal saline. Hyponatremia-likely secondary to hypovolemia from poor oral intake, normal saline as above Nausea/vomiting-could be secondary to chemotherapy, symptomatic management with Zofran, fluids as above. DVT prophylaxis: Lovenox Failure to thrive/cachexia will probably need feeding tube before discharge Code Status: Full code Discussed Condition With: RN and patient and case management and oncology Discharge Planning: Once cleared by oncology for discharge
[2018-03-21] MEDS: Senna/Docusate Sodium 8.6/50 MG Tablet PO SCH ×2 (12:42→20:52)
--- NOTE | 2018-03-21 14:12 | P.DIET ---
Nutritional Evaluation Type of nutrition evaluation: initial Nutrition screening: Weight Loss > 10 lbs Subjective Barriers to Nutrition: Chewing problem Oral Diet Tolerance Assessment Indicates: Nausea, Chewing problems, Poor dentition Subjective Comments: Pt states that prior to admission, he had not eaten for 3 days. States he was having severe N/V and was unable to keep anything down. At home pt states he was eating mainly pureed foods and some Boost, Ensure and V8. Today he's only been able to have 2 bowls of broth. He has several teeth missing in the front of his mouth and then had 4 teeth removed in the back of his mouth and states chewing is difficult for him. He c/o pain/burning sensation when swallowing r/t XRT. Objective - Diagnosis Chest Pain, Tongue Cancer - Objective % IBW: 92 (VMY=016#) Body Weight Used for Calculations: Actual (69.7kg) Energy Needs - Lower Range (kCal/kg): 30 Energy Needs - Upper Range (kCal/kg): 35 Lower Limit kCal/kg (kCals): 2,091 Upper Limit kCal/kg (kCals): 2,440 Lower Limit Protein Factor (Grams per Kg): 1.2 Upper Limit Protein Factor (Grams per Kg): 1.5 Lower Protein Needs (Protein): 84 Upper Protein Needs (Protein): 105 Fluid Factor (ml/kg): 30 Estimated Fluid Needs (ml): 2,091 Dietitian Reviewed in Medical Record: Current diet, Curent medications, Intake & Output, Labs, Medical history Diet Order: Heart Healthy Oral Diet Intake Amount: Poor <50% Speech Therapy Recommendations: Yes (Pureed, thin liquids) Objective Comments: Meds: Kytril, Zofran, Seroquel LB 03/20 recently dx tongue ca w/ anterior glossectomy on chemo/XRT Assessment Assessment: Pt admitted for chest pain and tongue cancer. He is on chemotherapy and XRT. He had an anterior glossectomy per review of EMR. Pt is unable to take much PO intake 2/2 his glossectomy, N/V, missing teeth, and burning when swallowing. He is scheduled for a PEG placement tomorrow. States his UBW prior to cancer dx was 175#, BQY=581#. Agree w/ PEG tube placement. Recommend initiating continuous TFings at first of Jevity 1.5 @ 65mls/hr x 24hrs. This will provide pt w/ 2340kcals, 100g PRO, and 1186mls fluid. Pt declined oral nutritional supplements at this time. He is currently on a Heart Healthy diet, but recommend a Regular diet (pureed consistency per ST recs) since pt is not taking in very much PO. Dietitian following. Recommendations: 1. Recommend continuous TFings at first of Jevity 1.5 @ 65mls/hr x 24hrs. 2. Recommend Regular (Pureed per ST recs) diet. 3. Pt has declined oral nutritional supplements. Dietitian to Monitor: Lab values, Intake & Output, Diet tolerance, Tube feeding tolerance, Weight change, PO Intake, Medical course
[2018-03-21] MEDS: Enoxaparin Inj 40 MG/0.4 ML Syringe SQ SCH (16:05)
--- NOTE | 2018-03-21 17:14 | ECHRPT ---
Indication: Hypertensive heart disease CONCLUSIONS The left ventricular systolic function is normal with an estimated ejection fraction in the range of 60-65%. Normal left ventricular size. Wall thickness is normal. No regional wall motion abnormalities are present. Trace mitral valve regurgitation. Aortic valve sclerosis is present. Mild aortic valve stenosis. There is trace tricuspid valve regurgitation. The estimated pulmonary arterial pressure is 31 mmHg. BP: / HR: Rhythm: Sinus MEASUREMENTS (Male / Female) Normal Values Technical Quality:Fair 2D ECHO LV Diastolic Diameter PLAX 4.4 cm 4.2 - 5.9 / 3.9 - 5.3 cm LV Systolic Diameter PLAX 3.2 cm IVS Diastolic Thickness 1.0 cm 0.6 - 1.0 / 0.6 - 0.9 cm LVPW Diastolic Thickness 1.0 cm 0.6 - 1.0 / 0.6 - 0.9 cm LV Relative Wall Thickness 0.5 RV Internal Dim ED PLAX 2.9 cm LVOT Diameter 2.2 cm LA Systolic Diameter LX 4.0 cm 3.0 - 4.0 / 2.7 - 3.8 cm LV Ejection Fraction MOD 4C 66.7 % LV Ejection Fraction 4C AL 66.8 % M-MODE Aortic Root Diameter MM 2.7 cm LA Systolic Diameter MM 3.8 cm LA Ao Ratio MM 1.4 AV Cusp Separation MM 1.3 cm DOPPLER AV Peak Velocity 225.0 cm/s AV Peak Gradient 20.3 mmHg AV Mean Gradient 10.0 mmHg AV Velocity Time Integral 49.9 cm LVOT Peak Velocity 94.0 cm/s LVOT Peak Gradient 3.5 mmHg LVOT Velocity Time Integral 18.1 cm AV Area Cont Eq vti 1.4 cm AV Area Cont Eq pk 1.6 cm MV Area PHT 2.5 cm Mitral E Point Velocity 71.6 cm/s Mitral A Point Velocity 72.1 cm/s Mitral E to A Ratio 1.0 LV E' Lateral Velocity 3.4 cm/s Mitral E to LV E' Lateral Ratio 21.0 LV E' Septal Velocity 7.3 cm/s Mitral E to LV E' Septal Ratio 9.8 TR Peak Velocity 228.0 cm/s TR Peak Gradient 20.8 mmHg Right Atrial Pressure 10.0 mmHg Pulmonary Artery Systolic Pressu 30.8 mmHg Right Ventricular Systolic Press 30.8 mmHg PV Peak Velocity 109.0 cm/s PV Peak Gradient 4.8 mmHg FINDINGS LEFT VENTRICLE The left ventricular systolic function is normal with an estimated ejection fraction in the range of 60-65%. Normal left ventricular size. Wall thickness is normal. No regional wall motion abnormalities are present. RIGHT VENTRICLE Normal right ventricular size and systolic function. LEFT ATRIUM The left atrial size is normal. RIGHT ATRIUM The right atrial size is normal. ATRIAL SEPTUM Normal atrial septal thickness without atrial level shunting by limited color doppler interrogation. AORTA The aortic root and proximal ascending aorta are normal in size on limited imaging. MITRAL VALVE Structurally normal mitral valve. Trace mitral valve regurgitation. AORTIC VALVE Trileaflet aortic valve. Aortic valve sclerosis is present. Mild aortic valve stenosis. Aortic valve area is 1.4 cm. Aortic valve mean gradient is 10 mmHg. TRICUSPID VALVE Structurally normal tricuspid valve. There is trace tricuspid valve regurgitation. The estimated pulmonary arterial pressure is 30.8 mmHg. PULMONARY VALVE No pulmonary valve regurgitation or stenosis. VESSELS The inferior vena cava is normal in size. PERICARDIUM No pericardial effusion. Jose Menendez MD, FACC (Electronically Signed) Final Date:21 March 2018 17:13
[2018-03-21] MEDS: Temazepam 15 MG Capsule PO PRN (21:42)
[2018-03-22] MEDS: Sod Chloride 0.9% Inj 1,000 ML IV.CONT SCH ×3 (05:33→20:09)
[2018-03-22] MEDS: Acetaminophen 325 MG Tablet PO PRN (05:40)
[2018-03-22 06:07] LABS: Baso % (Auto) 0.4 % (0.0-2.0); Eos # (Auto) 0.1 th/mm3 (0.0-0.4); Eos % (Auto) 2.7 % (0.0-4.0); Hematocrit 29.8 % (39.0-51.0); Hemoglobin 10.5 gm/dL (13.0-17.0); Lymph # (Auto) 0.2 th/mm3 (1.0-4.8); Lymph % (Auto) 7.5 % (9.0-44.0); Mean Corpuscular HGB Conc 35.1 % (32.0-36.0); Mean Corpuscular Hemoglobin 32.9 pg (27.0-34.0); Mean Corpuscular Volume 93.8 fL (80.0-100.0); Mono # (Auto) 0.3 th/mm3 (0.0-0.9); Mono % (Auto) 9.9 % (0.0-8.0); Neut # (Auto) 2.2 th/mm3 (1.8-7.7); Neut % (Auto) 79.5 % (16.0-70.0); Platelet Count 85 th/mm3 (150-450); Red Blood Count 3.18 mil/mm3 (4.50-5.90); Red Cell Distribution Width 13.3 % (11.6-17.2); White Blood Count 2.7 th/mm3 (4.0-11.0)
[2018-03-22 06:43] LABS: Alanine Aminotransferase 16 U/L (12-78); Albumin 2.9 g/dL (3.4-5.0); Alkaline Phosphatase 61 U/L (45-117); Anion Gap 10 meq/L (5-15); Aspartate Aminotransferase 17 U/L (15-37); Blood Urea Nitrogen 5 mg/dL (7-18); Calcium 8.1 mg/dL (8.5-10.1); Carbon Dioxide 25.3 meq/L (21.0-32.0); Chloride 103 meq/L (98-107); Free T4 (Free Thyroxine) 1.15 ng/dL (0.76-1.46); Glomerular Filtration Rate Greater Than 89 mL/min (>89); Glucose,Random 76 mg/dL (74-106); Magnesium 1.3 mg/dL (1.5-2.5); Phosphorus 2.9 mg/dL (2.5-4.9); Potassium 3.2 meq/L (3.5-5.1); Sodium 138 meq/L (136-145); Total Protein 5.5 g/dL (6.4-8.2)
[2018-03-22 08:18] LABS: Platelet Morphology Normal (Normal)
[2018-03-22] MEDS: QUEtiapine 25 MG Tablet PO SCH ×2 (08:36→20:05)
--- NOTE | 2018-03-22 08:57 | P.PNONC ---
Subjective Interval history: Afebrile. Patient awaiting PEG tube placement today. He has no acute complaints at this time. Objective Vital Signs/Intake & Output: Vital Signs 03/21/18 09:00 03/21/18 11:43 03/21/18 12:00 Temperature 98.7 F Pulse Rate 98 H 77 Respiratory Rate 18 18 Blood Pressure 105/75 Pulse Oximetry 95 97 03/21/18 12:42 03/21/18 16:00 03/21/18 17:00 Temperature 98.1 F Pulse Rate 81 Respiratory Rate 2 L 18 3 L Blood Pressure 115/76 Pulse Oximetry 96 03/21/18 19:41 03/21/18 20:00 03/21/18 20:40 Temperature 98.2 F Pulse Rate 58 L Respiratory Rate 17 17 Blood Pressure 143/73 H Pulse Oximetry 96 98 03/22/18 00:00 03/22/18 00:20 03/22/18 04:00 Temperature 98.1 F 98.5 F Pulse Rate 50 L 56 L 67 Respiratory Rate 16 17 Blood Pressure 145/70 H 141/72 H Pulse Oximetry 94 L 98 03/22/18 06:14 03/22/18 07:36 03/22/18 08:41 Temperature 97.6 F Pulse Rate 47 L 90 Respiratory Rate 16 20 Blood Pressure 132/73 Pulse Oximetry 96 Intake & Output 03/21/18 03/22/18 03/22/18 18:59 06:59 18:59 Intake Total 1000 / 1000 1480 / 1480 Output Total 1625 / 1625 Balance 1000 / 1000 -145 / -145 Weight 69.6 kg Intake: IV 1000 / 1000 1000 / 1000 NS Inj 1,000 ML @ 100 mls/hr IV 1000 / 1000 1000 / 1000 .CONT .Q10H JEREMIE Rx#:[id number] Oral 480 / 480 Output: Urine 1625 / 1625 Other: # Voids 1 Date of Last Bowel Movement 03/20/18 03/21/18 Result Diagrams: 03/22/18 05:30 03/22/18 05:30 Laboratory Results: Laboratory Results - last 24 hr 03/22/18 03/22/18 05:30 05:30 WBC 2.7 L RBC 3.18 L Hgb 10.5 L Hct 29.8 L MCV 93.8 MCH 32.9 MCHC 35.1 RDW 13.3 Plt Count 85 L MPV 8.0 Prelim Diff (Auto) Slide review pending Neut % (Auto) 79.5 H Lymph % (Auto) 7.5 L [place] % (Auto) 9.9 H Eos % (Auto) 2.7 Baso % (Auto) 0.4 Neut # (Auto) 2.2 Lymph # (Auto) 0.2 L [place] # (Auto) 0.3 Eos # (Auto) 0.1 Baso # (Auto) 0.0 WBC Differential . Diff Scan Auto diff confirmed Differential Comment . Platelet Estimate Low L Platelet Morphology Normal Sodium 138 Potassium 3.2 L Chloride 103 Carbon Dioxide 25.3 Anion Gap 10 BUN 5 L Creatinine 0.54 L Estimated GFR Greater than 89 Random Glucose 76 Calcium 8.1 L D Phosphorus 2.9 Magnesium 1.3 L Total Bilirubin 0.6 AST 17 ALT 16 Alkaline Phosphatase 61 Total Protein 5.5 L D Albumin 2.9 L D TSH 0.290 L Free T4 1.15 Medications: Active Medications Generic Name Dose Route Start Last Admin Trade Name Freq PRN Reason Stop Dose Admin Acetaminophen 650 mg 03/20/18 15:06 03/22/18 05:40 Tylenol PO 650 mg Q4H PRN Administration Temp > 100.4 Acetaminophen 650 mg 03/20/18 15:08 03/21/18 20:12 Tylenol PO 650 mg Q6HR PRN Administration PAIN SCALE 1 TO 2 Enoxaparin Sodium 40 mg 03/20/18 16:00 03/21/18 16:05 Lovenox Inj SQ 40 mg Q24H JEREMIE Administration Sodium Chloride 1,000 mls @ 100 mls/hr 03/20/18 15:13 03/22/18 05:33 Ns Inj IV.CONT 100 mls/hr .Q10H JEREMIE Administration Ondansetron HCl 4 mg 03/20/18 15:30 03/21/18 20:13 Zofran Odt PO 4 mg Q6H PRN Administration NAUSEA OR VOMITING Oxycodone/Acetaminophen 1 tab 03/20/18 15:08 03/22/18 08:36 Percocet 5/325 Mg PO 1 tab Q6H PRN Administration PAIN SCALE 3 TO 5 Prochlorperazine Edisylate 10 mg 03/20/18 19:47 03/21/18 03:26 Compazine Inj IV.PUSH 10 mg Q6H PRN Administration NAUSEA/VOMITING Quetiapine Fumarate 25 mg 03/20/18 21:00 03/22/18 08:36 Seroquel PO 25 mg BID JEREMIE Administration Senna/Docusate Sodium 1 tab 03/20/18 21:00 03/21/18 20:52 Bella-Colace PO Not Given BID JEREMIE Temazepam 15 mg 03/20/18 15:06 03/21/18 21:42 Restoril PO 15 mg HS PRN Administration INSOMNIA Terazosin HCl 10 mg 03/21/18 09:00 03/22/18 08:37 Hytrin PO 10 mg DAILY JEREMIE Administration Objective Remarks: GENERAL: Chronically ill-appearing male sitting upright in bed. In no acute distress. SKIN: Warm and dry. HEAD: Normocephalic. EYES: No scleral icterus. No injection or drainage. MOUTH: Dry, pink mucous membranes. Tongue deformity noted. No sores or ulcerations. NECK: Supple, trachea midline. CARDIOVASCULAR: Regular rate and rhythm without murmurs. RESPIRATORY: Breath sounds clear, equal bilaterally. No accessory muscle use. GASTROINTESTINAL: Abdomen soft, non-tender, nondistended. EXTREMITIES: No cyanosis, or edema. MUSCULOSKELETAL: +mild muscle wasting NEUROLOGICAL: Slight dysarthria. Follows commands. Moving all extremities. 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 Chemotherapy was held. 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 He developed increased nausea with vomiting and presented to the emergency room. 1. Pancytopenia likely R/T recent chemotherapy. We will continue to monitor. 2. The patient is awaiting PEG tube placement for nutritional support today. 3. Continue supportive care. 4. Dietitian following and has tube feed recommendations on the chart post PEG tube placement. - Attending Statement The exam, history, and the medical decision-making described in the above note were completed with the assistance of the mid-level provider. I reviewed and agree with the findings presented. I attest that I had a [id number] encounter with the patient on the same day, and personally performed and documented my assessment and findings in the medical record.Patient denies any chest pain. He has no shortness of breath. He is feeling stronger. He is going to have G-tube placement today. He still has mild pancytopenia due to chemotherapy. He can be discharged if stable after G-tube placement. He could follow-up with radiation oncology to continue radiation. Plan to resume his chemotherapy next week.
[2018-03-22] MEDS ORDERED: Levofloxacin 500 mg Premix Inj 500 MG/100 ML PIGGYBACK IV.SIG ONE (10:26)
[2018-03-22] MEDS ORDERED: fentaNYL Citrate Inj 100 MCG/2 ML Ampul ONE (10:26)
--- NOTE | 2018-03-22 11:02 | P.RAD ---
Post Procedure Progress Note - Pre Procedure Diagnosis (1) Cancer of tongue - Post Procedure Diagnosis (1) Cancer of tongue - Procedure Information Procedure Date: 03/22/18 Supervising Radiologist: Zack Lofton MD Estimated blood loss (mL): 2 Anesthesia: Local, Conscious Sedation - Plan of Activity Patient to Unit: [facility] Patient Condition: Fair Additional Comments: G tube placed without difficulty. catheter in good position Full dictated report to follow See PACS Report for procedural detail/treatment.
--- NOTE | 2018-03-22 11:58 | IR ---
EXAM DATE: 03/22/2018 11:27 AM EDT AGE/SEX: 67 years / Male INDICATIONS: Patient presents with history of tongue cancer in need of gastrostomy tube placement fo r nutrition. CLINICAL DATA: This is the patient's initial encounter. Patient reports that signs and symptoms have been present for 3 days and indicates a pain score of 0/10. MEDICAL/SURGICAL HISTORY: Carcinoma, tongue. Kidney stone, Benign Prostatic Hypertrophy, Depres jamey, Supraventricular Tachycardia. . Biopsy of tongue, Excision of tongue lesion, Teeth extraction, Port placement. COMPARISON: No prior exams available for comparison. FLUORO TIME (min): 4.48 IMAGE SERIES: 2 SEDATION TIME (min): 15 CONTRAST (cc): 10 Omnipaque (iohexol) 350 MEDICATION(S): 3mg midazolam (Versed) IV 100mcg fentanyl (Sublimaze) IV 1mg Glucagon Prophylactic antibiotics were administered with appropriate pre-procedure timing. DEVICE(S): 18 Serbian gastrostomy tube . . PROCEDURE: 1. Fluoroscopically guided gastrostomy tube placement. 2. Conscious sedation with continuous EKG and oximetry monitoring. The risks, benefits and alternatives to the procedure were explained and verbal and written consent w as obtained. The site was prepped in sterile fashion. Full sterile technique was used, including ca p, mask, sterile gloves and gown and a large sterile sheet. Hand hygiene and 2% chlorhexidine and/or betadine/alcohol prep was utilized per protocol for cutaneous antisepsis. The skin and subcutaneous tissues were infiltrated with local anesthetic solution. Fluoroscopy was used to brandy the position of the liver.. The stomach was insufflated with room air. Three percutaneous fasteners were placed to secure the anterior gastric wall. A small incision was made between the fasteners. The stomach was accessed with an 18 gauge needle. A n 0.035 wire was advanced into the small bowel. The tract was dilated. The gastrostomy tube was int roduced through a peel-away sheath. The position was confirmed with an injection of contrast. Conscious sedation was performed with the prescribed dosages and duration as above in the presence of an independent trained radiology nurse to assist in the monitoring of the patient. EKG and oximetry remained stable throughout the procedure. The patient tolerated the procedure well and there were n o complications. The patient was sent to post anesthesia recovery in stable condition. CONCLUSION: 1. Uncomplicated gastrostomy tube placement as above. Electronically signed by: Zack Lofton MD 03/22/2018 11:56 AM EDT
--- NOTE | 2018-03-22 14:03 | P.PNIM ---
Subjective Interval history: This is a 67-year-old male with history of supraventricular tachycardia, depression, BPH, and recently diagnosed with tongue cancer in October 2017, currently undergoing chemotherapy and radiotherapy presenting to the hospital with chest pain. Patient is a poor historian. Per patient, he has been in morphine however during the weekend, he tapered himself off and since then has been having bilateral chest pain radiating to the neck area described as cramping, [id number]. Not associated with shortness of breath, dizziness , lightheadedness, palpitations but has been having nausea and has been vomiting in the last few days. Poor oral intake. His last chemotherapy was a week ago and radiotherapy was this morning. There is plan to get a PEG tube in the next few days. He went to his oncologist office today and it was noticed that his blood pressure was low and with a complaint of chest pain, the patient was sent to the hospital. Of note, patient was admitted in the hospital a month ago for atrial tachycardia , was seen by Dr. oakley. Family history: Unremarkable, no history of throat cancer. 8-1 HAS SOME HEADACHES WILL ONLY TAKE TYLENOL -DOES NOT WANT ANY NARCOTICS DW RN AND PT AND ONCOLOGY AND CM HOPEFULLY PEG PLACEMENT TOMORROW AM LABS PT AND OT 8-2 follow up TONGUE CANCER HAD G-TUBE PLACED BY IR TODAY 8-2 HAS SOME PAIN NEEDS TO LEARN ABOUT THE G-TUBE TUBE FEEDS MAYBE TOMORROW PER NUTRITION SUGGESTIONS JOSE D RN AND PT Physical Exam Vital signs: Vital Signs 03/21/18 16:00 03/21/18 17:00 03/21/18 19:41 Temperature 98.1 F Pulse Rate 81 Respiratory Rate 18 3 L Blood Pressure 115/76 Pulse Oximetry 96 96 03/21/18 20:00 03/21/18 20:40 03/22/18 00:00 Temperature 98.2 F Pulse Rate 58 L 50 L Respiratory Rate 17 17 Blood Pressure 143/73 H Pulse Oximetry 98 03/22/18 00:20 03/22/18 04:00 03/22/18 06:14 Temperature 98.1 F 98.5 F Pulse Rate 56 L 67 Respiratory Rate 16 17 16 Blood Pressure 145/70 H 141/72 H Pulse Oximetry 94 L 98 03/22/18 07:36 03/22/18 08:41 03/22/18 11:10 Temperature 97.6 F 97.7 F Pulse Rate 47 L 90 65 Respiratory Rate 20 20 Blood Pressure 132/73 112/72 Pulse Oximetry 96 97 03/22/18 12:00 03/22/18 12:07 Temperature 97.6 F Pulse Rate 65 59 L Respiratory Rate 18 Blood Pressure 160/76 H Pulse Oximetry 100 Intake & Output 03/21/18 03/22/18 03/22/18 18:59 06:59 18:59 Intake Total 1000 / 1000 1480 / 1480 100 / 100 Output Total 1625 / 1625 Balance 1000 / 1000 -145 / -145 100 / 100 Weight 69.6 kg Intake: IV 1000 / 1000 1000 / 1000 100 / 100 NS Inj 1,000 ML @ 100 mls/hr IV 1000 / 1000 1000 / 1000 .CONT .Q10H [facility] Rx#:[id number] Levaquin 500 mg Premix Inj 500 100 / 100 mg In 100 ml @ 0 mls/hr IV.SIG .STK-MED ONE Rx#:[id number] Oral 480 / 480 Output: Urine 1625 / 1625 Other: # Voids 1 Date of Last Bowel Movement 03/20/18 03/21/18 03/21/18 Narrative: Not in distress -quite thin appearing male actually somewhat cachectic PERRL, pink conjunctiva without injection, anicteric Nose without bleeding, airway patent, oropharynx clear Supple neck, (+) hyperpigmentation likely from radiation- tongue has been resected on the right side Normal rate and regular rhythm, no murmurs gallops or rubs appreciated. Clear to auscultation and symmetric bilaterally, normal respiratory effort. Hyperpigmentation upper chest likely from radiation. Normal bowel sounds, soft, non-tender, nondistended, no guarding. G TUBE IN PLACE Extremities without clubbing, cyanosis, or edema. No rash of generalized distribution. Skin is warm and dry. AAO x3, no cranial nerve deficits, moves all 4 extremities, no focal neurologic deficits. Mild dysarthria. Results - Labs CBC & Chem 7: 03/22/18 05:30 03/22/18 05:30 Laboratory Results - last 24 hr 03/22/18 03/22/18 05:30 05:30 WBC 2.7 L RBC 3.18 L Hgb 10.5 L Hct 29.8 L MCV 93.8 MCH 32.9 MCHC 35.1 RDW 13.3 Plt Count 85 L MPV 8.0 Prelim Diff (Auto) Slide review pending Neut % (Auto) 79.5 H Lymph % (Auto) 7.5 L [place] % (Auto) 9.9 H Eos % (Auto) 2.7 Baso % (Auto) 0.4 Neut # (Auto) 2.2 Lymph # (Auto) 0.2 L [place] # (Auto) 0.3 Eos # (Auto) 0.1 Baso # (Auto) 0.0 WBC Differential . Diff Scan Auto diff confirmed Differential Comment . Platelet Estimate Low L Platelet Morphology Normal Sodium 138 Potassium 3.2 L Chloride 103 Carbon Dioxide 25.3 Anion Gap 10 BUN 5 L Creatinine 0.54 L Estimated GFR Greater than 89 Random Glucose 76 Calcium 8.1 L D Phosphorus 2.9 Magnesium 1.3 L Total Bilirubin 0.6 AST 17 ALT 16 Alkaline Phosphatase 61 Total Protein 5.5 L D Albumin 2.9 L D TSH 0.290 L Free T4 1.15 - Imaging Impressions Gastrostomy Tube Placement 03/22/18 00:00 CONCLUSION: 1. Uncomplicated gastrostomy tube placement as above. - Procedures G TUBE PLACEMENT 8-2 BY IR Assessment and Plan - Plan This is a 67-year-old male recently diagnosed throat cancer on chemotherapy and radiotherapy sent from his oncologist office for hypotension chest pain Chest pain-likely second to pleurisy from radiotherapy, rule out cardiac causes. Check serial troponin EKG. First troponin is negative, EKG showed sinus rhythm, normal axis, no ischemic changes.? Second-degree AV block, will recheck. Pain control. Tongue cancer-pain may be related to radiotherapy to the chest, consult patient 's oncologist. He is actively undergoing chemotherapy and radiotherapy. Allegedly, there is a plan to place a PEG tube in the next few weeks, swallow evaluation. PEG TUBE PLACED 8-2 BY IR HYPOKALEMIA WILL REPLACE- AM LABS HYPOMAGNESIA WILL REPLACE Hypotension-resolved?, Start normal saline. Hyponatremia-likely secondary to hypovolemia from poor oral intake, normal saline as above Nausea/vomiting-could be secondary to chemotherapy, symptomatic management with Zofran, fluids as above. DVT prophylaxis: Lovenox Failure to thrive/cachexia will probably need feeding tube before discharge Code Status: FULL CODE Discussed Condition With: RN AND PT AND CM Discharge Planning: Once cleared by oncology for discharge
[2018-03-22] MEDS: oxyCODONE/Acetaminophen 10/325 Tablet PO PRN ×2 (14:30→20:05)
[2018-03-22] MEDS: Senna/Docusate Sodium 8.6/50 MG Tablet PO SCH ×2 (14:39→20:05)
[2018-03-22] MEDS: Mag Sulf 1 gm/100 ml Premix 100 ML IV.SIG SCH ×2 (15:23→16:23)
[2018-03-22 16:54] LABS: Hemoglobin A1c 5.4 % (4.3-6.0)
[2018-03-22] MEDS: Potassium Chlor 20 mEq Premix 20 MEQ/100 ML PIGGYBACK IV.SIG SCH ×3 (17:33→22:14)
[2018-03-22] MEDS: Enoxaparin Inj 40 MG/0.4 ML Syringe SQ SCH (17:55)
[2018-03-22] MEDS: Temazepam 15 MG Capsule PO PRN (22:13)
[2018-03-23] MEDS: Potassium Chlor 20 mEq Premix 20 MEQ/100 ML PIGGYBACK IV.SIG SCH (00:18)
[2018-03-23] MEDS: oxyCODONE/Acetaminophen 10/325 Tablet PO PRN ×4 (02:33→22:02)
[2018-03-23 05:07] LABS: Baso % (Auto) 0.5 % (0.0-2.0); Eos # (Auto) 0.1 th/mm3 (0.0-0.4); Eos % (Auto) 5.7 % (0.0-4.0); Hematocrit 29.1 % (39.0-51.0); Hemoglobin 10.1 gm/dL (13.0-17.0); Lymph # (Auto) 0.2 th/mm3 (1.0-4.8); Lymph % (Auto) 6.5 % (9.0-44.0); Mean Corpuscular HGB Conc 34.7 % (32.0-36.0); Mean Corpuscular Hemoglobin 32.4 pg (27.0-34.0); Mean Corpuscular Volume 93.2 fL (80.0-100.0); Mean Platelet Volume 7.4 fL (7.0-11.0); Mono # (Auto) 0.3 th/mm3 (0.0-0.9); Mono % (Auto) 10.8 % (0.0-8.0); Neut # (Auto) 1.8 th/mm3 (1.8-7.7); Neut % (Auto) 76.5 % (16.0-70.0); Platelet Count 81 th/mm3 (150-450); Red Blood Count 3.13 mil/mm3 (4.50-5.90); Red Cell Distribution Width 13.6 % (11.6-17.2); White Blood Count 2.4 th/mm3 (4.0-11.0)
[2018-03-23 05:28] LABS: Alanine Aminotransferase 15 U/L (12-78); Albumin 2.7 g/dL (3.4-5.0); Anion Gap 6 meq/L (5-15); Aspartate Aminotransferase 12 U/L (15-37); Blood Urea Nitrogen 5 mg/dL (7-18); Calcium 7.9 mg/dL (8.5-10.1); Carbon Dioxide 26.2 meq/L (21.0-32.0); Chloride 107 meq/L (98-107); Glomerular Filtration Rate Greater Than 89 mL/min (>89); Glucose,Random 79 mg/dL (74-106); Magnesium 1.6 mg/dL (1.5-2.5); Phosphorus 2.6 mg/dL (2.5-4.9); Sodium 139 meq/L (136-145)
[2018-03-23 05:30] LABS: Alkaline Phosphatase 57 U/L (45-117); Total Protein 5.3 g/dL (6.4-8.2)
[2018-03-23 07:26] LABS: Platelet Morphology Normal (Normal)
[2018-03-23 07:28] LABS: Ovalocytes 1+
[2018-03-23] MEDS: Senna/Docusate Sodium 8.6/50 MG Tablet PO SCH ×2 (08:33→21:20)
[2018-03-23] MEDS: QUEtiapine 25 MG Tablet PO SCH ×2 (08:33→21:25)
[2018-03-23] MEDS: Sod Chloride 0.9% Inj 1,000 ML IV.CONT SCH ×3 (09:00→23:39)
--- NOTE | 2018-03-23 10:22 | P.PNONC ---
Subjective Interval history: Afebrile. Patient sitting up in the chair, in no acute distress. He states that he was able to eat his pured breakfast this a.m. He is status post PEG tube placement yesterday. Per the patient's nurse Analia, his radiation was canceled today per Dr. Madison. Objective Vital Signs/Intake & Output: Vital Signs 03/22/18 11:10 03/22/18 11:25 03/22/18 12:00 Temperature 97.7 F Pulse Rate 68 70 65 Respiratory Rate 18 20 Blood Pressure 112/72 116/71 Pulse Oximetry 96 97 03/22/18 12:07 03/22/18 15:36 03/22/18 16:00 Temperature 97.6 F 97.8 F Pulse Rate 59 L 62 72 Respiratory Rate 18 16 Blood Pressure 160/76 H 121/74 Pulse Oximetry 100 99 03/22/18 20:00 03/22/18 20:35 03/23/18 00:00 Temperature 98.3 F Pulse Rate 69 59 L Respiratory Rate 17 16 Blood Pressure 120/70 Pulse Oximetry 96 03/23/18 00:02 03/23/18 04:00 03/23/18 04:10 Temperature 97.7 F 97.6 F Pulse Rate 58 L 51 L 51 L Respiratory Rate 16 16 Blood Pressure 132/59 L 147/70 H Pulse Oximetry 97 97 03/23/18 08:00 Temperature 97.2 F L Pulse Rate 103 H Respiratory Rate 18 Blood Pressure 108/77 Pulse Oximetry 94 L Intake & Output 03/22/18 03/23/18 03/23/18 18:59 06:59 18:59 Intake Total 1540 / 1540 1700 / 1700 Output Total 1025 / 1025 1475 / 1475 Balance 515 / 515 225 / 225 Weight 69.5 kg Intake: IV 1300 / 1300 1400 / 1400 NS Inj 1,000 ML @ 100 mls/hr IV 1000 / 1000 1000 / 1000 .CONT .Q10H [facility] Rx#:[id number] Levaquin 500 mg Premix Inj 500 100 / 100 mg In 100 ml @ 0 mls/hr IV.SIG .STK-MED ONE Rx#:[id number] Magnesium Sulfate 1 gm/D5W 100 200 / 200 ml Premix 100 ML @ 100 mls/hr IV.SIG Q1H [facility] Rx#:[id number] KCl 20 mEq Premix Inj 20 meq In 400 / 400 100 ml @ 50 mls/hr IV.SIG Q2H [facility] Rx#:[id number] Oral 240 / 240 240 / 240 Water Bolus Amount 60 / 60 Output: Urine 1025 / 1025 1475 / 1475 Other: Date of Last Bowel Movement 03/21/18 03/21/18 Result Diagrams: 03/23/18 04:50 03/23/18 04:50 Laboratory Results: Laboratory Results - last 24 hr 03/22/18 03/23/18 03/23/18 05:30 04:50 04:50 WBC 2.4 L RBC 3.13 L Hgb 10.1 L Hct 29.1 L MCV 93.2 MCH 32.4 MCHC 34.7 RDW 13.6 Plt Count 81 L MPV 7.4 Prelim Diff (Auto) Slide review pending Neut % (Auto) 76.5 H Lymph % (Auto) 6.5 L Moore % (Auto) 10.8 H Eos % (Auto) 5.7 H Baso % (Auto) 0.5 Neut # (Auto) 1.8 Lymph # (Auto) 0.2 L Moore # (Auto) 0.3 Eos # (Auto) 0.1 Baso # (Auto) 0.0 WBC Differential . Diff Scan Auto diff confirmed Differential Comment . Platelet Estimate Low L Platelet Morphology Normal Ovalocytes 1+ H Sodium 139 Potassium 4.0 D Chloride 107 Carbon Dioxide 26.2 Anion Gap 6 BUN 5 L Creatinine 0.49 L Estimated GFR Greater than 89 Random Glucose 79 Hemoglobin A1c 5.4 Calcium 7.9 L Phosphorus 2.6 Magnesium 1.6 Total Bilirubin 0.5 AST 12 L ALT 15 Alkaline Phosphatase 57 Total Protein 5.3 L Albumin 2.7 L Imaging Studies: Impressions Gastrostomy Tube Placement 03/22/18 00:00 CONCLUSION: 1. Uncomplicated gastrostomy tube placement as above. Medications: Active Medications Generic Name Dose Route Start Last Admin Trade Name Freq PRN Reason Stop Dose Admin Acetaminophen 650 mg 03/20/18 15:06 03/22/18 05:40 Tylenol PO 650 mg Q4H PRN Administration Temp > 100.4 Acetaminophen 650 mg 03/20/18 15:08 03/21/18 20:12 Tylenol PO 650 mg Q6HR PRN Administration PAIN SCALE 1 TO 2 Enoxaparin Sodium 40 mg 03/20/18 16:00 03/22/18 17:55 Lovenox Inj SQ 40 mg Q24H [facility] Administration Sodium Chloride 1,000 mls @ 100 mls/hr 03/20/18 15:13 03/23/18 09:00 Ns Inj IV.CONT Not Given .Q10H [facility] Ondansetron HCl 4 mg 03/20/18 15:30 03/21/18 20:13 Zofran Odt PO 4 mg Q6H PRN Administration NAUSEA OR VOMITING Oxycodone/Acetaminophen 1 tab 03/20/18 15:08 03/23/18 08:59 Percocet 10/325 Mg PO 1 tab Q6H PRN Administration PAIN SCALE 6 TO 10 Oxycodone/Acetaminophen 1 tab 03/20/18 15:08 03/22/18 08:36 Percocet 5/325 Mg PO 1 tab Q6H PRN Administration PAIN SCALE 3 TO 5 Prochlorperazine Edisylate 10 mg 03/20/18 19:47 03/21/18 03:26 Compazine Inj IV.PUSH 10 mg Q6H PRN Administration NAUSEA/VOMITING Quetiapine Fumarate 25 mg 03/20/18 21:00 03/23/18 08:33 Seroquel PO 25 mg BID [facility] Administration Senna/Docusate Sodium 1 tab 03/20/18 21:00 03/23/18 08:33 Bella-Colace PO 1 tab BID [facility] Administration Temazepam 15 mg 03/20/18 15:06 03/22/18 22:13 Restoril PO 15 mg HS PRN Administration INSOMNIA Terazosin HCl 10 mg 03/21/18 09:00 03/23/18 08:33 Hytrin PO 10 mg DAILY [facility] Administration Objective Remarks: GENERAL: Chronically ill-appearing male sitting in chair. In no acute distress. SKIN: Warm and dry. Port access to right chest wall. Dressing dry/intact. HEAD: Normocephalic. EYES: No scleral icterus. No injection or drainage. MOUTH: pink, moist mucous membranes. Tongue deformity noted. No sores or ulcerations. NECK: Supple, trachea midline. CARDIOVASCULAR: Regular rate and rhythm without murmurs. RESPIRATORY: Posterior breath sounds clear, equal bilaterally. No accessory muscle use. GASTROINTESTINAL: Abdomen soft, non-tender, nondistended. PEG tube to LUQ, dressing dry/intact. EXTREMITIES: No cyanosis, or edema. MUSCULOSKELETAL: +mild muscle wasting NEUROLOGICAL: Slight dysarthria. Follows commands. Moving all extremities. 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 Chemotherapy was held. The patient subsequently followed up with his services mgr and had a EKG that was unremarkable. He developed increased nausea with vomiting and presented to the emergency room. 1. Pancytopenia likely R/T recent chemotherapy. We will continue to monitor. 2. Status post PEG tube placement for nutritional support. 3. Once the patient is educated on and tolerating bolus tube feeds he may be discharged from an oncology standpoint. 4. The patient will continue radiation therapy per Dr. Madison. 5. The patient will follow up with Dr. daniel early next week. - Attending Statement The exam, history, and the medical decision-making described in the above note were completed with the assistance of the mid-level provider. I reviewed and agree with the findings presented. I attest that I had a [id number] encounter with the patient on the same day, and personally performed and documented my assessment and findings in the medical record.Pt had G-tube placement.Nausea has improved. No chest pain. Pt can be d/c from oncology standpoint. F/u with rad onc to continue XRT. Plan to restart chemo next week at oncology clinic.
--- NOTE | 2018-03-23 11:34 | P.PNIM ---
Subjective Interval history: This is a 67-year-old male with history of supraventricular tachycardia, depression, BPH, and recently diagnosed with tongue cancer in October 2017, currently undergoing chemotherapy and radiotherapy presenting to the hospital with chest pain. Patient is a poor historian. Per patient, he has been in morphine however during the weekend, he tapered himself off and since then has been having bilateral chest pain radiating to the neck area described as cramping, [id number]. Not associated with shortness of breath, dizziness , lightheadedness, palpitations but has been having nausea and has been vomiting in the last few days. Poor oral intake. His last chemotherapy was a week ago and radiotherapy was this morning. There is plan to get a PEG tube in the next few days. He went to his oncologist office today and it was noticed that his blood pressure was low and with a complaint of chest pain, the patient was sent to the hospital. Of note, patient was admitted in the hospital a month ago for atrial tachycardia , was seen by Dr. oakley. Family history: Unremarkable, no history of throat cancer. 8-1 HAS SOME HEADACHES WILL ONLY TAKE TYLENOL -DOES NOT WANT ANY NARCOTICS DW RN AND PT AND ONCOLOGY AND CM HOPEFULLY PEG PLACEMENT TOMORROW AM LABS PT AND OT 8-2 follow up TONGUE CANCER HAD G-TUBE PLACED BY IR TODAY 8-2 HAS SOME PAIN NEEDS TO LEARN ABOUT THE G-TUBE TUBE FEEDS MAYBE TOMORROW PER NUTRITION SUGGESTIONS DW RN AND PT 8-3 NEEDS TO LEARN HOW TO GIVE BOLUS TUBE FEEDS DW RN AND PT NEEDS G-TUBE EDUCATION Physical Exam Vital signs: Vital Signs 03/22/18 12:00 03/22/18 12:07 03/22/18 15:36 Temperature 97.6 F 97.8 F Pulse Rate 65 59 L 62 Respiratory Rate 18 16 Blood Pressure 160/76 H 121/74 Pulse Oximetry 100 99 03/22/18 16:00 03/22/18 20:00 03/22/18 20:35 Temperature 98.3 F Pulse Rate 72 69 Respiratory Rate 17 16 Blood Pressure 120/70 Pulse Oximetry 96 03/23/18 00:00 03/23/18 00:02 03/23/18 04:00 Temperature 97.7 F Pulse Rate 59 L 58 L 51 L Respiratory Rate 16 Blood Pressure 132/59 L Pulse Oximetry 97 03/23/18 04:10 03/23/18 08:00 08/03/18 10:34 Temperature 97.6 F 97.2 F L Pulse Rate 51 L 118 H Respiratory Rate 16 18 Blood Pressure 147/70 H 108/77 Pulse Oximetry 97 94 L 96 Intake & Output 03/22/18 03/23/18 03/23/18 18:59 06:59 18:59 Intake Total 1540 / 1540 1700 / 1700 Output Total 1025 / 1025 1475 / 1475 Balance 515 / 515 225 / 225 Weight 69.5 kg Intake: IV 1300 / 1300 1400 / 1400 NS Inj 1,000 ML @ 100 mls/hr IV 1000 / 1000 1000 / 1000 .CONT .Q10H [facility] Rx#:[id number] Levaquin 500 mg Premix Inj 500 100 / 100 mg In 100 ml @ 0 mls/hr IV.SIG .STK-MED ONE Rx#:[id number] Magnesium Sulfate 1 gm/D5W 100 200 / 200 ml Premix 100 ML @ 100 mls/hr IV.SIG Q1H [facility] Rx#:[id number] KCl 20 mEq Premix Inj 20 meq In 400 / 400 100 ml @ 50 mls/hr IV.SIG Q2H [facility] Rx#:[id number] Oral 240 / 240 240 / 240 Water Bolus Amount 60 / 60 Output: Urine 1025 / 1025 1475 / 1475 Other: Date of Last Bowel Movement 03/21/18 03/21/18 Narrative: Not in distress -quite thin appearing male actually somewhat cachectic PERRL, pink conjunctiva without injection, anicteric Nose without bleeding, airway patent, oropharynx clear Supple neck, (+) hyperpigmentation likely from radiation- tongue has been resected on the right side Normal rate and regular rhythm, no murmurs gallops or rubs appreciated. Clear to auscultation and symmetric bilaterally, normal respiratory effort. Hyperpigmentation upper chest likely from radiation. Normal bowel sounds, soft, non-tender, nondistended, no guarding. G TUBE IN PLACE Extremities without clubbing, cyanosis, or edema. No rash of generalized distribution. Skin is warm and dry. AAO x3, no cranial nerve deficits, moves all 4 extremities, no focal neurologic deficits. Mild dysarthria. Results - Labs CBC & Chem 7: 03/23/18 04:50 03/23/18 04:50 Laboratory Results - last 24 hr 03/22/18 03/23/18 03/23/18 05:30 04:50 04:50 WBC 2.4 L RBC 3.13 L Hgb 10.1 L Hct 29.1 L MCV 93.2 MCH 32.4 MCHC 34.7 RDW 13.6 Plt Count 81 L MPV 7.4 Prelim Diff (Auto) Slide review pending Neut % (Auto) 76.5 H Lymph % (Auto) 6.5 L [place] % (Auto) 10.8 H Eos % (Auto) 5.7 H Baso % (Auto) 0.5 Neut # (Auto) 1.8 Lymph # (Auto) 0.2 L [place] # (Auto) 0.3 Eos # (Auto) 0.1 Baso # (Auto) 0.0 WBC Differential . Diff Scan Auto diff confirmed Differential Comment . Platelet Estimate Low L Platelet Morphology Normal Ovalocytes 1+ H Sodium 139 Potassium 4.0 D Chloride 107 Carbon Dioxide 26.2 Anion Gap 6 BUN 5 L Creatinine 0.49 L Estimated GFR Greater than 89 Random Glucose 79 Hemoglobin A1c 5.4 Calcium 7.9 L Phosphorus 2.6 Magnesium 1.6 Total Bilirubin 0.5 AST 12 L ALT 15 Alkaline Phosphatase 57 Total Protein 5.3 L Albumin 2.7 L - Imaging Impressions Gastrostomy Tube Placement 03/22/18 00:00 CONCLUSION: 1. Uncomplicated gastrostomy tube placement as above. - Procedures G TUBE PLACEMENT 8-2 BY IR Assessment and Plan - Plan This is a 67-year-old male recently diagnosed throat cancer on chemotherapy and radiotherapy sent from his oncologist office for hypotension chest pain Chest pain-likely second to pleurisy from radiotherapy, rule out cardiac causes. Check serial troponin EKG. First troponin is negative, EKG showed sinus rhythm, normal axis, no ischemic changes.? Second-degree AV block, will recheck. Pain control. Tongue cancer-pain may be related to radiotherapy to the chest, consult patient 's oncologist. He is actively undergoing chemotherapy and radiotherapy. Allegedly, there is a plan to place a PEG tube in the next few weeks, swallow evaluation. PEG TUBE PLACED 8-2 BY IR HYPOKALEMIA WILL REPLACE- AM LABS HYPOMAGNESIA WILL REPLACE Hypotension-resolved?, Start normal saline. Hyponatremia-likely secondary to hypovolemia from poor oral intake, normal saline as above Nausea/vomiting-could be secondary to chemotherapy, symptomatic management with Zofran, fluids as above. DVT prophylaxis: Lovenox Failure to thrive/cachexia will probably need feeding tube before discharge NEEDS TO TOLERATE TUBE FEEDS BEFORE DC AND KNOW HOW TO GIVE THEM Code Status: FULL CODE Discussed Condition With: RN AND PT AND ONCOLOGY AND CM Discharge Planning: Once cleared by oncology for discharge AND TOLERATING TUBE FEEDS SO HE CAN DO AT HOME
--- NOTE | 2018-03-23 11:35 | P.DCO ---
- Physical Therapy Order: Evaluate and treat, Improve ambulation, Strength and gait training - Occupational Therapy Order: Evaluate and treat, Improve ADL, Gross motor coordination, Fine motor coordination - Home Health Nursing Order: Medical education (TUBE FEED EDUCATIONS AND G-TUBE EDUCATION), Signs/ symptoms of disease process, Oxygen administration education, Wound care and dressing changes, Nursing assessment with vital signs - Home Health Aide Order: To assist in: Bathing and personal care, machine printer and meal prep - Certification I have seen patient Jacques Hope on 03/23/18. My clinical findings support the need for the requested home health care services because: Limited mobility due to disease progression, Deconditioned with increased weakness, Limited ability to care for self I certify that my clinical findings support that this patient is homebound because: Unsteady gait/balance, Unsafe to leave home unassisted, Need for psychosocial assistance
--- NOTE | 2018-03-23 16:10 | P.DIET ---
Nutritional Evaluation Type of nutrition evaluation: follow-up Nutrition consult regarding: Tube Feeding Nutrition screening: Weight Loss > 10 lbs Subjective Barriers to Nutrition: Chewing problem Oral Diet Tolerance Assessment Indicates: Nausea, Chewing problems, Poor dentition Subjective Comments: Pt had multiple questions regarding TFing. Had no c/o N/V/D/C. No stomach pain, distension since starting TFing. Requesting to start bolus feeding tomorrow morning. Objective - Diagnosis Chest Pain, Tongue Cancer - Objective % IBW: 92 (HUJ=[id number]) Body Weight Used for Calculations: Actual (69.7kg) Energy Needs - Lower Range (kCal/kg): 30 Energy Needs - Upper Range (kCal/kg): 35 Lower Limit kCal/kg (kCals): 2,091 Upper Limit kCal/kg (kCals): 2,440 Lower Limit Protein Factor (Grams per Kg): 1.2 Upper Limit Protein Factor (Grams per Kg): 1.5 Lower Protein Needs (Protein): 84 Upper Protein Needs (Protein): 105 Fluid Factor (ml/kg): 30 Estimated Fluid Needs (ml): 2,091 Dietitian Reviewed in Medical Record: Current diet, Curent medications, Intake & Output, Labs Diet Order: TF w/ Tray, Pureed Oral Diet Intake Amount: Poor <50% Speech Therapy Recommendations: Yes (Pureed, thin liquids) Feeding - Current Tube Feeding Tube Feeding Product: Jevity 1.5 Tube Feeding Method: Pump Tube Feeding Rate: 65 Tube Feeding Route: gastrostomy Current kCals Provided by Tube Feedin,340 Current Protein Provided by Tube Feeding (gPRO): 100 Current Free H2O Provided (m/l): 1,186 Assessment Assessment: New [facility] [place] [facility] for bolus feedings. Recommend Jevity 1.5 360mls @ B, L, D, & HS. 30ml water flush before/after TFing. Pt will need an additional 240ml water flush daily for hydration. Pt educated on increasing water flushes if he is unable to drink his 2 cups of water daily. Pt was extensively educated on his TFing formula, regimen, etc and was provided a home tube feeding packet. Pt was able to comprehend and repeat back his TF regimen multiple times. He is requesting to transition to bolus feedings tomorrow morning and this is appropriate. Continue to increase TF to goal throughout the night and if pt tolerates w/ no complications okay to transition to bolus feedings. Dietitian following. Recommendations: 1. Bolus feedings: Jevity 1.5 360mls @ B, L, D, & HS. 2. 30ml water flush before and after feeding. 3. 240ml water flush 1x/day for hydration. Pt educated on monitoring fluid status and when to increase or decrease water flushes. 4. Okay to start bolus feedings tomorrow morning if pt has no complaints overnight. Dietitian to Monitor: Lab values, Intake & Output, Diet tolerance, Tube feeding tolerance, Weight change, Residuals, PO Intake, Medical course
[2018-03-23] MEDS: Enoxaparin Inj 40 MG/0.4 ML Syringe SQ SCH (16:11)
[2018-03-23] MEDS: Temazepam 15 MG Capsule PO PRN (22:02)
[2018-03-24] MEDS: oxyCODONE/Acetaminophen 10/325 Tablet PO PRN ×2 (04:02→16:28)
[2018-03-24 05:35] LABS: Red Blood Count 2.95 mil/mm3 (4.50-5.90); White Blood Count 2.2 th/mm3 (4.0-11.0)
[2018-03-24 05:36] LABS: Baso % (Auto) 0.6 % (0.0-2.0); Eos # (Auto) 0.2 th/mm3 (0.0-0.4); Eos % (Auto) 9.6 % (0.0-4.0); Hemoglobin 9.8 gm/dL (13.0-17.0); Lymph # (Auto) 0.2 th/mm3 (1.0-4.8); Lymph % (Auto) 9.3 % (9.0-44.0); Mean Corpuscular HGB Conc 34.9 % (32.0-36.0); Mean Corpuscular Hemoglobin 33.2 pg (27.0-34.0); Mean Corpuscular Volume 95.1 fL (80.0-100.0); Mean Platelet Volume 8.2 fL (7.0-11.0); Mono # (Auto) 0.2 th/mm3 (0.0-0.9); Mono % (Auto) 9.5 % (0.0-8.0); Neut # (Auto) 1.5 th/mm3 (1.8-7.7); Platelet Count 85 th/mm3 (150-450); Red Cell Distribution Width 13.7 % (11.6-17.2)
[2018-03-24 05:59] LABS: Albumin 2.8 g/dL (3.4-5.0); Anion Gap 8 meq/L (5-15); Aspartate Aminotransferase 16 U/L (15-37); Blood Urea Nitrogen 3 mg/dL (7-18); Calcium 8.2 mg/dL (8.5-10.1); Carbon Dioxide 24.6 meq/L (21.0-32.0); Chloride 106 meq/L (98-107); Glomerular Filtration Rate Greater Than 89 mL/min (>89); Glucose,Random 103 mg/dL (74-106); Magnesium 1.4 mg/dL (1.5-2.5); Potassium 3.6 meq/L (3.5-5.1); Sodium 139 meq/L (136-145)
[2018-03-24 06:00] LABS: Alanine Aminotransferase 14 U/L (12-78)
[2018-03-24 06:02] LABS: Alkaline Phosphatase 57 U/L (45-117); Total Protein 5.4 g/dL (6.4-8.2)
[2018-03-24 08:51] LABS: Platelet Morphology Normal (Normal)
[2018-03-24] MEDS ORDERED: Magnesium Sulfate Inj 4 GM in Sodium Chlor 0.9% Inj 92 ML IV.SIG ONE (08:58)
[2018-03-24] MEDS: QUEtiapine 25 MG Tablet PO SCH (09:17)
[2018-03-24] MEDS: Senna/Docusate Sodium 8.6/50 MG Tablet PO SCH (09:18)
--- NOTE | 2018-03-24 13:13 | P.PNIM ---
Subjective Interval history: This is a 67-year-old male with history of supraventricular tachycardia, depression, BPH, and recently diagnosed with tongue cancer in October 2017, currently undergoing chemotherapy and radiotherapy presenting to the hospital with chest pain. Patient is a poor historian. Per patient, he has been in morphine however during the weekend, he tapered himself off and since then has been having bilateral chest pain radiating to the neck area described as cramping, [id number]. Not associated with shortness of breath, dizziness , lightheadedness, palpitations but has been having nausea and has been vomiting in the last few days. Poor oral intake. His last chemotherapy was a week ago and radiotherapy was this morning. There is plan to get a PEG tube in the next few days. He went to his oncologist office today and it was noticed that his blood pressure was low and with a complaint of chest pain, the patient was sent to the hospital. Of note, patient was admitted in the hospital a month ago for atrial tachycardia , was seen by Dr. oakley. Family history: Unremarkable, no history of throat cancer. 8-1 HAS SOME HEADACHES WILL ONLY TAKE TYLENOL -DOES NOT WANT ANY NARCOTICS DW RN AND PT AND ONCOLOGY AND CM HOPEFULLY PEG PLACEMENT TOMORROW AM LABS PT AND OT 8-2 follow up TONGUE CANCER HAD G-TUBE PLACED BY IR TODAY 8-2 HAS SOME PAIN NEEDS TO LEARN ABOUT THE G-TUBE TUBE FEEDS MAYBE TOMORROW PER NUTRITION SUGGESTIONS DW RN AND PT 8-3 NEEDS TO LEARN HOW TO GIVE BOLUS TUBE FEEDS DW RN AND PT NEEDS G-TUBE EDUCATION 8-4 wants to go home has been educated on g-tube feeds will go home later today Physical Exam Vital signs: Vital Signs 03/23/18 16:17 03/23/18 20:00 03/23/18 22:32 Temperature 98.8 F Pulse Rate 70 64 Respiratory Rate 18 18 Blood Pressure 141/83 H Pulse Oximetry 99 03/24/18 00:00 03/24/18 00:10 03/24/18 04:00 Temperature 98.2 F Pulse Rate 74 113 H 64 Respiratory Rate 16 Blood Pressure 112/73 Pulse Oximetry 98 03/24/18 04:03 03/24/18 04:32 03/24/18 08:00 Temperature 97.9 F 98.4 F Pulse Rate 60 82 Respiratory Rate 16 18 18 Blood Pressure 139/89 136/83 Pulse Oximetry 100 97 03/24/18 11:52 Temperature 98.5 F Pulse Rate 67 Respiratory Rate 14 Blood Pressure 114/63 Pulse Oximetry 98 Intake & Output 03/23/18 03/24/18 03/24/18 18:59 06:59 18:59 Intake Total 2390 / 2390 Output Total 800 / 800 850 / 850 Balance -800 / -800 1540 / 1540 Weight 69.4 kg Intake: IV 1000 / 1000 NS Inj 1,000 ML @ 100 mls/hr IV 1000 / 1000 .CONT .Q10H JEREMIE Rx#:[id number] Oral 630 / 630 Tube Feeding 460 / 460 Water Bolus Amount 300 / 300 Output: Urine 800 / 800 850 / 850 Other: # Voids 4 Date of Last Bowel Movement 03/23/18 Narrative: Not in distress -quite thin appearing male actually somewhat cachectic PERRL, pink conjunctiva without injection, anicteric Nose without bleeding, airway patent, oropharynx clear Supple neck, (+) hyperpigmentation likely from radiation- tongue has been resected on the right side Normal rate and regular rhythm, no murmurs gallops or rubs appreciated. Clear to auscultation and symmetric bilaterally, normal respiratory effort. Hyperpigmentation upper chest likely from radiation. Normal bowel sounds, soft, non-tender, nondistended, no guarding. G TUBE IN PLACE Extremities without clubbing, cyanosis, or edema. No rash of generalized distribution. Skin is warm and dry. AAO x3, no cranial nerve deficits, moves all 4 extremities, no focal neurologic deficits. Mild dysarthria. Results - Labs CBC & Chem 7: 03/24/18 04:10 03/24/18 04:10 Laboratory Results - last 24 hr 03/24/18 03/24/18 04:10 04:10 WBC 2.2 L RBC 2.95 L Hgb 9.8 L Hct 28.0 L MCV 95.1 MCH 33.2 MCHC 34.9 RDW 13.7 Plt Count 85 L MPV 8.2 Prelim Diff (Auto) Slide review pending Neut % (Auto) 71.0 H Lymph % (Auto) 9.3 [place] % (Auto) 9.5 H Eos % (Auto) 9.6 H Baso % (Auto) 0.6 Neut # (Auto) 1.5 L Lymph # (Auto) 0.2 L [place] # (Auto) 0.2 Eos # (Auto) 0.2 Baso # (Auto) 0.0 WBC Differential . Diff Scan Auto diff confirmed Differential Comment . Platelet Estimate Low L Platelet Morphology Normal Sodium 139 Potassium 3.6 Chloride 106 Carbon Dioxide 24.6 Anion Gap 8 BUN 3 L Creatinine 0.51 L Estimated GFR Greater than 89 Random Glucose 103 Calcium 8.2 L Phosphorus 3.0 Magnesium 1.4 L Total Bilirubin 0.3 AST 16 ALT 14 Alkaline Phosphatase 57 Total Protein 5.4 L Albumin 2.8 L - Imaging Chest CTA 03/20/18 10:11 CONCLUSION: 1. No evidence for pulmonary embolism. 2. Right apical nodules. 6 month follow-up CT chest recommended. Chest X-Ray 03/20/18 10:11 CONCLUSION: No acute cardiopulmonary disease. Gastrostomy Tube Placement 03/22/18 00:00 CONCLUSION: 1. Uncomplicated gastrostomy tube placement as above. - Procedures G TUBE PLACEMENT 8-2 BY IR Assessment and Plan - Plan This is a 67-year-old male recently diagnosed throat cancer on chemotherapy and radiotherapy sent from his oncologist office for hypotension chest pain Chest pain-likely second to pleurisy from radiotherapy, rule out cardiac causes. Check serial troponin EKG. First troponin is negative, EKG showed sinus rhythm, normal axis, no ischemic changes.? Second-degree AV block, will recheck. Pain control. Tongue cancer-pain may be related to radiotherapy to the chest, consult patient 's oncologist. He is actively undergoing chemotherapy and radiotherapy. Allegedly, there is a plan to place a PEG tube in the next few weeks, swallow evaluation. PEG TUBE PLACED 8-2 BY IR HYPOKALEMIA WILL REPLACE- AM LABS HYPOMAGNESIA WILL REPLACE Hypotension-resolved?, Start normal saline. Hyponatremia-likely secondary to hypovolemia from poor oral intake, normal saline as above Nausea/vomiting-could be secondary to chemotherapy, symptomatic management with Zofran, fluids as above. DVT prophylaxis: Lovenox Failure to thrive/cachexia will probably need feeding tube before discharge NEEDS TO TOLERATE TUBE FEEDS BEFORE DC AND KNOW HOW TO GIVE THEM hypomagnesia dc to home today Code Status: full code Discussed Condition With: RN AND PT AND CM Discharge Planning: Once cleared by oncology for discharge AND TOLERATING TUBE FEEDS SO HE CAN DO AT HOME
--- NOTE | 2018-03-24 13:20 | P.DS ---
Date of admission: 03/20/18 13:48 Primary care physician: UNKNOWN Attending physician on discharge: Nj Pedroza Anticipated date of discharge: 03/24/18 Brief History from admission: This is a 67-year-old male with history of supraventricular tachycardia, depression, BPH, and recently diagnosed with tongue cancer in October 2017, currently undergoing chemotherapy and radiotherapy presenting to the hospital with chest pain. Patient is a poor historian. Per patient, he has been in morphine however during the weekend, he tapered himself off and since then has been having bilateral chest pain radiating to the neck area described as cramping, [id number]. Not associated with shortness of breath, dizziness , lightheadedness, palpitations but has been having nausea and has been vomiting in the last few days. Poor oral intake. His last chemotherapy was a week ago and radiotherapy was this morning. There is plan to get a PEG tube in the next few days. He went to his oncologist office today and it was noticed that his blood pressure was low and with a complaint of chest pain, the patient was sent to the hospital. Of note, patient was admitted in the hospital a month ago for atrial tachycardia , was seen by Dr. oakley. Family history: Unremarkable, no history of throat cancer. DS: Diagnosis - Discharge Diagnosis (1) Chest pain Status: Chronic (2) Patient on combined chemotherapy and radiation Status: Chronic (3) Cancer of tongue Status: Chronic (4) Failure to thrive Status: Chronic DS: Medications - Discharge Medications Prescriptions: ondansetron HCl [Zofran] 4 mg PO TID-QID PRN #30 tab MDD 16 PRN Reason: nausea prochlorperazine 25 mg FL Q12H PRN #30 supp MDD 25 PRN Reason: Nausea And Vomiting quetiapine 25 mg PO BID #60 tab terazosin 10 mg PO DAILY #30 tab DS: Summary Hospital Course: This is a 67-year-old male with history of supraventricular tachycardia, depression, BPH, and recently diagnosed with tongue cancer in October 2017, currently undergoing chemotherapy and radiotherapy presenting to the hospital with chest pain. Patient is a poor historian. Per patient, he has been in morphine however during the weekend, he tapered himself off and since then has been having bilateral chest pain radiating to the neck area described as cramping, [id number]. Not associated with shortness of breath, dizziness , lightheadedness, palpitations but has been having nausea and has been vomiting in the last few days. Poor oral intake. His last chemotherapy was a week ago and radiotherapy was this morning. There is plan to get a PEG tube in the next few days. He went to his oncologist office today and it was noticed that his blood pressure was low and with a complaint of chest pain, the patient was sent to the hospital. Of note, patient was admitted in the hospital a month ago for atrial tachycardia , was seen by Dr. oakley. Family history: Unremarkable, no history of throat cancer. 8-1 HAS SOME HEADACHES WILL ONLY TAKE TYLENOL -DOES NOT WANT ANY NARCOTICS DW RN AND PT AND ONCOLOGY AND CM HOPEFULLY PEG PLACEMENT TOMORROW AM LABS PT AND OT 8-2 follow up TONGUE CANCER HAD G-TUBE PLACED BY IR TODAY 8-2 HAS SOME PAIN NEEDS TO LEARN ABOUT THE G-TUBE TUBE FEEDS MAYBE TOMORROW PER NUTRITION SUGGESTIONS DW RN AND PT 8-3 NEEDS TO LEARN HOW TO GIVE BOLUS TUBE FEEDS DW RN AND PT NEEDS G-TUBE EDUCATION 8-4 wants to go home has been educated on g-tube feeds will go home later today - Time Spent with Patient Total time spent providing and/or coordinating discharge services: Greater than 30 minutes - Quality: VTE Deep Vein Thrombosis/Pulmonary Embolism Present on Admission: No Exam Vital signs: Vital Signs 03/23/18 16:17 03/23/18 20:00 03/23/18 22:32 Temperature 98.8 F Pulse Rate 70 64 Respiratory Rate 18 18 Blood Pressure 141/83 H Pulse Oximetry 99 03/24/18 00:00 03/24/18 00:10 03/24/18 04:00 Temperature 98.2 F Pulse Rate 74 113 H 64 Respiratory Rate 16 Blood Pressure 112/73 Pulse Oximetry 98 03/24/18 04:03 03/24/18 04:32 03/24/18 08:00 Temperature 97.9 F 98.4 F Pulse Rate 60 82 Respiratory Rate 16 18 18 Blood Pressure 139/89 136/83 Pulse Oximetry 100 97 03/24/18 11:52 Temperature 98.5 F Pulse Rate 67 Respiratory Rate 14 Blood Pressure 114/63 Pulse Oximetry 98 Intake & Output 03/23/18 03/24/18 03/24/18 18:59 06:59 18:59 Intake Total 2390 / 2390 Output Total 800 / 800 850 / 850 Balance -800 / -800 1540 / 1540 Weight 69.4 kg Intake: IV 1000 / 1000 NS Inj 1,000 ML @ 100 mls/hr IV 1000 / 1000 .CONT .Q10H JEREMIE Rx#:[id number] Oral 630 / 630 Tube Feeding 460 / 460 Water Bolus Amount 300 / 300 Output: Urine 800 / 800 850 / 850 Other: # Voids 4 Date of Last Bowel Movement 03/23/18 Narrative: Not in distress -quite thin appearing male actually somewhat cachectic PERRL, pink conjunctiva without injection, anicteric Nose without bleeding, airway patent, oropharynx clear Supple neck, (+) hyperpigmentation likely from radiation- tongue has been resected on the right side Normal rate and regular rhythm, no murmurs gallops or rubs appreciated. Clear to auscultation and symmetric bilaterally, normal respiratory effort. Hyperpigmentation upper chest likely from radiation. Normal bowel sounds, soft, non-tender, nondistended, no guarding. G TUBE IN PLACE Extremities without clubbing, cyanosis, or edema. No rash of generalized distribution. Skin is warm and dry. AAO x3, no cranial nerve deficits, moves all 4 extremities, no focal neurologic deficits. Mild dysarthria. Results Procedures completed during hospitalization: G TUBE PLACEMENT 8-2 BY IR Completed studies during hospitalization: Laboratory Results WBC 2.2 th/mm3 (4.0-11.0) L 03/24/18 04:10 RBC 2.95 mil/mm3 (4.50-5.90) L 03/24/18 04:10 Hgb 9.8 gm/dL (13.0-17.0) L 03/24/18 04:10 Hct 28.0 % (39.0-51.0) L 03/24/18 04:10 MCV 95.1 fL (80.0-100.0) 03/24/18 04:10 MCH 33.2 pg (27.0-34.0) 03/24/18 04:10 MCHC 34.9 % (32.0-36.0) 03/24/18 04:10 RDW 13.7 % (11.6-17.2) 03/24/18 04:10 Plt Count 85 th/mm3 (150-450) L 03/24/18 04:10 MPV 8.2 fL (7.0-11.0) 03/24/18 04:10 Prelim Diff (Auto) Slide review pending 03/24/18 04:10 Neut % (Auto) 71.0 % (16.0-70.0) H 03/24/18 04:10 Lymph % (Auto) 9.3 % (9.0-44.0) 03/24/18 04:10 [place] % (Auto) 9.5 % (0.0-8.0) H 03/24/18 04:10 Eos % (Auto) 9.6 % (0.0-4.0) H 03/24/18 04:10 Baso % (Auto) 0.6 % (0.0-2.0) 03/24/18 04:10 Neut # (Auto) 1.5 th/mm3 (1.8-7.7) L 03/24/18 04:10 Lymph # (Auto) 0.2 th/mm3 (1.0-4.8) L 03/24/18 04:10 [place] # (Auto) 0.2 th/mm3 (0.0-0.9) 03/24/18 04:10 Eos # (Auto) 0.2 th/mm3 (0.0-0.4) 03/24/18 04:10 Baso # (Auto) 0.0 th/mm3 (0.0-0.2) 03/24/18 04:10 WBC Differential . 03/24/18 04:10 Diff Scan Auto diff confirmed 03/24/18 04:10 Seg Neuts % (Manual) 84 % (16-70) H 03/20/18 11:14 Band Neuts % (Manual) 5 % (0-6) 03/20/18 11:14 Lymphocytes % (Manual) 4 % (9-44) L 03/20/18 11:14 Monocytes % (Manual) 7 % (0-8) 03/20/18 11:14 Abs Neuts (Manual) 2.7 th/mm3 (1.8-7.7) 03/20/18 11:14 Differential Comment . 03/24/18 04:10 Platelet Estimate Low (Normal) L 03/24/18 04:10 Platelet Morphology Normal (Normal) 03/24/18 04:10 Ovalocytes 1+ (None) H 03/23/18 04:50 Acanthocytes (Spur) Occ (None) H 03/21/18 03:28 PT 11.4 sec (9.8-11.6) 03/20/18 11:14 INR 1.1 Ratio 03/20/18 11:14 APTT 24.6 sec (24.3-30.1) 03/20/18 11:14 Sodium 139 meq/L (136-145) 03/24/18 04:10 Potassium 3.6 meq/L (3.5-5.1) 03/24/18 04:10 Chloride 106 meq/L (98-107) 03/24/18 04:10 Carbon Dioxide 24.6 meq/L (21.0-32.0) 03/24/18 04:10 Anion Gap 8 meq/L (5-15) 03/24/18 04:10 BUN 3 mg/dL (7-18) L 03/24/18 04:10 Creatinine 0.51 mg/dL (0.60-1.30) L 03/24/18 04:10 Estimated GFR Greater than 89 mL/min (>89) 03/24/18 04:10 Random Glucose 103 mg/dL (74-106) 03/24/18 04:10 Hemoglobin A1c 5.4 % (4.3-6.0) 03/22/18 05:30 Lactic Acid 1.2 mmol/L (0.4-2.0) 03/20/18 10:38 Calcium 8.2 mg/dL (8.5-10.1) L 03/24/18 04:10 Phosphorus 3.0 mg/dL (2.5-4.9) 03/24/18 04:10 Magnesium 1.4 mg/dL (1.5-2.5) L 03/24/18 04:10 Total Bilirubin 0.3 mg/dL (0.2-1.0) 03/24/18 04:10 AST 16 U/L (15-37) 03/24/18 04:10 ALT 14 U/L (12-78) 03/24/18 04:10 Alkaline Phosphatase 57 U/L (45-117) 03/24/18 04:10 Total Creatine Kinase 82 U/L (39-308) 03/20/18 10:10 Troponin I 0.03 ng/mL (0.02-0.05) 03/21/18 03:28 Total Protein 5.4 g/dL (6.4-8.2) L 03/24/18 04:10 Albumin 2.8 g/dL (3.4-5.0) L 03/24/18 04:10 TSH 0.290 uIU/mL (0.358-3.740) L 03/22/18 05:30 Free T4 1.15 ng/dL (0.76-1.46) 03/22/18 05:30 Urine Color Yellow (Yellw/Straw) 03/20/18 10:38 Urine Clarity Hazy (Clear) H 03/20/18 10:38 Urine pH 7.0 (5.0-8.5) 03/20/18 10:38 Ur Specific [place] 1.014 (1.002-1.035) 03/20/18 10:38 Urine Protein Negative mg/dL (Neg-Trace) 03/20/18 10:38 Urine Glucose (UA) Negative mg/dL (Negative) 03/20/18 10:38 Urine Ketones 20 mg/dL (Negative) 03/20/18 10:38 Urine Occult Blood Negative (Negative) 03/20/18 10:38 Urine Nitrate Negative (Negative) 03/20/18 10:38 Urine Bilirubin Negative (Negative) 03/20/18 10:38 Urine Urobilinogen 2.0 mg/dL (Less than 2) H 03/20/18 10:38 Ur Leukocyte Esterase Negative (Negative) 03/20/18 10:38 Urine RBC 2 /hpf (0-3) 03/20/18 10:38 Urine WBC Less than 1 /hpf (0-5) 03/20/18 10:38 Urine Mucus Few /lpf (Occasional) H 03/20/18 10:38 Micro UA Comment Culture not ind 03/20/18 10:38 Urine Culture Comments Culture not ind 03/20/18 10:38 Impressions Chest CTA 03/20/18 10:11 CONCLUSION: 1. No evidence for pulmonary embolism. 2. Right apical nodules. 6 month follow-up CT chest recommended. Chest X-Ray 03/20/18 10:11 CONCLUSION: No acute cardiopulmonary disease. Gastrostomy Tube Placement 03/22/18 00:00 CONCLUSION: 1. Uncomplicated gastrostomy tube placement as above. Labs on day of discharge: Labs from last 24 hours 03/24/18 03/24/18 04:10 04:10 WBC 2.2 L RBC 2.95 L Hgb 9.8 L Hct 28.0 L MCV 95.1 MCH 33.2 MCHC 34.9 RDW 13.7 Plt Count 85 L MPV 8.2 Prelim Diff (Auto) Slide review pending Neut % (Auto) 71.0 H Lymph % (Auto) 9.3 [place] % (Auto) 9.5 H Eos % (Auto) 9.6 H Baso % (Auto) 0.6 Neut # (Auto) 1.5 L Lymph # (Auto) 0.2 L [place] # (Auto) 0.2 Eos # (Auto) 0.2 Baso # (Auto) 0.0 WBC Differential . Diff Scan Auto diff confirmed Differential Comment . Platelet Estimate Low L Platelet Morphology Normal Sodium 139 Potassium 3.6 Chloride 106 Carbon Dioxide 24.6 Anion Gap 8 BUN 3 L Creatinine 0.51 L Estimated GFR Greater than 89 Random Glucose 103 Calcium 8.2 L Phosphorus 3.0 Magnesium 1.4 L Total Bilirubin 0.3 AST 16 ALT 14 Alkaline Phosphatase 57 Total Protein 5.4 L Albumin 2.8 L - Impressions ITS Impressions Chest CTA 03/20/18 10:11 CONCLUSION: 1. No evidence for pulmonary embolism. 2. Right apical nodules. 6 month follow-up CT chest recommended. Chest X-Ray 03/20/18 10:11 CONCLUSION: No acute cardiopulmonary disease. Gastrostomy Tube Placement 03/22/18 00:00 CONCLUSION: 1. Uncomplicated gastrostomy tube placement as above. Discharge Plan - Discharge Disposition Patient Disposition: W/Home Health Service - Discharge Condition Condition: Stable - Discharge Order Discharge Orders: Discharge Order (Routine); Ordered 03/24/18 Ordered By: Nj Pedroza - Physicians Team Primary Care Provider: UNKNOWN, Attending Provider: Nj Pedroza Other Providers: Lincoln Saha MD
[2018-03-24] MEDS ORDERED: Heparin Central Flush 100 UNIT/ML 5 ML Vial IV.FLUSH PRN ×2 (13:25)
[2018-03-27 17:53] VITALS: PULSE 64
[2018-03-27 17:54] VITALS: O2SAT 99
[2018-03-27 18:02] VITALS: BP 135/55; TEMP 98.2
[2018-03-27 18:49] VITALS: RESP 16
== END 2018-03-24 19:00 | disposition home health service (06) ==
LOC: HCIN 09:53 → NEPE 09:53 → NEDA 09:53 → HCIN 16:24
PROVIDERS: ADMIT Hospitalist; ATTEND Hospitalist